=== PATIENT | male | born 1965 | race Caucasian/White ===

== ENCOUNTER 2024-12-05 08:41 | Outpatient (AMB) | payer MEDICAID, SELFPAY ==
--- NOTE | 2024-12-05 08:46 | A.OFFVIS_ITS ---
Vital Signs 12/05/24 08:47 Height 5 ft 6 in BP 138/77 Blood Pressure Location Rt brachial Position Sitting Pulse 67 Intake Visit Reasons: colo screening Intake Note: New patient in office today for colonoscopy screening. CC: He reports that he had a colonoscopy done a few years ago in [place] but does not recall exactly when. Pt reports occasional constipation and heartburn. 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 He is referred by Saadia benitez Orrum. 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 Chronic hepatitis-C Diabetes High cholesterol History of polysubstance use disorder Chronic pressure ulcer of the sacrum Chronic kidney disease stage IIIA Bipolar disorder/depression/panic disorder/PTSD Right carotid stenosis hepatic steatosis Osteoarthritis of the knee BPH Fall risk Frequent UTIs * SURGICAL HISTORY cOLONOSCOPY - in [facility] Back surgery * ALLERGIES Penicillin * [facility]: Laboratory Tests 08/06/24 10:30 WBC 15.4 H Hgb 12.6 L Hct 37.2 L MCV 88.4 MCH 29.9 Plt Count 310 Estimated GFR 55 Total Bilirubin 0.3 AST 24 ALT 18 Alkaline Phosphatase 81 Ammonia 63 H TODAY'S VISIT The The patient is here today with a staff member who is noncontributory The patient thinks he had an colonoscopy many years ago [place] from [place] and had polyps. Given his cognitive abilities are limited due to his stroke he can not give me any further details. He suffers GERD and constipation but the regimen he is on his his care facility control it sufficiently. There are no prior problems with anesthesia or sedation. He denies any cardiac or respiratory problems but has a history of DVT/PE and is on chronic anticoagulation. He has history of hepatitis-C with an unknown viral load so I have ordered labs. This would be to assess his infectious disease risk. The family history of colorectal cancer is unknown. [facility] Surgical History History of back surgery H/O colonoscopy History of esophagogastroduodenoscopy (EGD) Social History Alcohol intake: former Comment: Quit around 30-40 years ago per patient. Use of substances other than those prescribed or required for medical reasons: No Substance Use Type Other:: Hx of cocaine, marijuana, and heroine use Review of Systems Const Denies fatigue, Denies fever(s), Denies night sweats, Denies poor appetite, Reports weight gain and Denies weight loss ENT Reports Normal hearing present, Denies dental pain, Denies dysphagia, Denies hearing loss, Denies mouth pain, Denies odynophagia, Denies throat swelling, Denies tongue swelling and Reports other (Dentition adequate) Card Reports no additional complaints Resp Reports no additional complaints GI Details: Denies abdominal pain, Denies melena, Denies bloating, Denies hematochezia, Reports constipation, Denies GI cramping, Denies dysphagia, Denies excessive flatus, Denies early satiety, Reports heartburn, Denies diarrhea, Denies nausea, Denies odynophagia, Denies vomiting and Denies hematemesis Musc Reports abnormal gait, Reports myalgias and Reports deformity Skin/Breast Denies pruritus, Denies lesions, Denies rash and Denies jaundice Neuro Reports Normal hearing present, Denies Abnormal speech present, Reports abnormal gait, Reports lack of coordination, Reports focal weakness and Reports paresthesias Endo Denies fatigue Aller/Immun Denies throat swelling and Denies tongue swelling Physical Exam Vital Signs: Last Vital Signs Pulse 67 12/05/24 08:47 BP 138/77 12/05/24 08:47 Const General: cooperative, no acute distress, well developed and well groomed Nutritional Appearance: well nourished and obese Orientation/consciousness: oriented to person, oriented to place and oriented to time Limitations: behavioral limitations, No language barrier, wheelchair and other limitations HEENT Head: Yes normocephalic and Yes atraumatic Eyes General: appearance normal, both eyes and all related structures Pupils: Equal, round and reactive pupils present Neck Neck: Yes normal visual inspection and Yes no lymphadenopathy Thyroid: Thyroid normal Resp Effort & Inspection: normal respiratory effort and able to speak in complete sentences Auscultation: clear to auscultation bilaterally Cardio Rate: regular rate Rhythm: regular rhythm Heart sounds: Normal, physiologic split S2 sound present Peripheral pulses: radial pulses present and posterior tibial pulses present GI Inspection: No distended, No Abdominal panniculus present and Yes obesity Palpation (GI): Soft to palpation, nontender, no guarding, not rigid and No hepatosplenomegaly present Percussion: Yes normal to percussion Auscultation: normal bowel sounds Rectal Exam - Male: Yes deferred Skin General skin exam: no rashes or lesions noted, turgor normal, skin not dry, no jaundice, No spider nevi and no striae Rashes: no rashes Nails: normal Neuro General: oriented to person, oriented to place and oriented to time Cranial nerves: Yes Equal, round and reactive pupils present and Yes Normal hearing present Speech: No Abnormal speech present Extrem General: No capillary refill normal, No clubbing, No cyanosis, Yes edema and Yes Dysmorphic Psych Appearance: grossly normal and well kempt Mental Status: mental status grossly normal Speech and movement: Slowed speech present (Psych) Affect: normal affect Attitude: cooperative Thought process: Circumstantial thought process present and not confabulating Thought content: Normal thought content present Insight: Fair insight present (Psych) and Limited insight present (Psych) Judgement: Fair judgement present (Psych) and Limited judgement present (Psych) Assessment & Plan Assessment & Plan (1) Pre-op examination: Code(s): Z01.818 - Encounter for other preprocedural examination Category: Medical (2) Smoker: Code(s): F17.200 - Nicotine dependence, unspecified, uncomplicated Category: Social Hx (3) Left hemiplegia: Code(s): G81.94 - Hemiplegia, unspecified affecting left nondominant side Category: Medical (4) Chronic non-pressure ulcer of sacrum extending to fat level: Code(s): L98.422 - Non-pressure chronic ulcer of back with fat layer exposed Category: Medical (5) Hepatitis C antibody positive: Code(s): R76.8 - Other specified abnormal immunological findings in serum Category: Medical (6) Chronic deep vein thrombosis: Code(s): I82.509 - Chronic embolism and thrombosis of unspecified deep veins of unspecified lower extremity Category: Medical (7) Chronic anticoagulation: Code(s): Z79.01 - tank terminal gauger (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 Given his cognitive abilities are limited due to his stroke he can not give me any further details. He suffers GERD and constipation but the regimen he is on his his care facility control it sufficiently. There are no prior problems with anesthesia or sedation. He denies any cardiac or respiratory problems but has a history of DVT/PE and is on chronic anticoagulation. He has history of hepatitis-C with an unknown viral load so I have ordered labs. This would be to assess his infectious disease risk. The family history of colorectal cancer is unknown. Orders: Orders Hepatitis C Viral Load Today D72.829 - Elevated white blood cell count, unspecified, R76.8 - Other specified abnormal immunological findings in serum Colonoscopy - GI Use Only Today D72.829 - Elevated white blood cell count, unspecified, R76.8 - Other specified abnormal immunological findings in serum, Z01.818 - Encounter for other preprocedural examination Complete Blood Count Auto Diff Today D72.829 - Elevated white blood cell count, unspecified, R76.8 - Other specified abnormal immunological findings in serum Medications: New peg 3350-electrolytes 236-22.74-6.74 -5.86 gram (Golytely) until fecal effluent is clear; do not exceed a total volume of 2,000 mL 240 mL PO Q10M 4,000 mL 0RF 1 day Z12.11 - Encounter for screening for malignant neoplasm of colon bisacodyl (Dulcolax (bisacodyl)) 10 mg (2 x 5 mg) PO BEDTIME 4 tabs 0RF 2 days Coding Level of Care Code New Pt Level 3 (14426) Diagnoses Pre-op examination Z01.818 Smoker F17.200 Left hemiplegia G81.94 Chronic non-pressure ulcer of sacrum extending to fat level L98.422 Hepatitis C antibody positive R76.8 Chronic deep vein thrombosis I82.509 Chronic anticoagulation Z79.01 Opioid dependence on agonist therapy F11.20
[2024-12-05 08:47] VITALS: BP 138/77; PULSE 67
--- OUTSIDE RECORDS SUMMARY | 2024-12-05 08:57 | XMS_ITS | Clinical Summary ---
Author Organization [facility] Address [address] [place] [address] Phone Care Team Providers Care Flexo Folder Gluer Operator Name Role Phone Aleksander Welch MD Primary Care Provider [phone] Encounters Date Type Department Care Team Description 10/20/2024 Lab Requisition [facility] [address] [place] [address] Aleksander Welch MD Type 1 diabetes mellitus with diabetic polyneuropathy ([facility]/HCC V24, CMS/HCC V28) 09/24/2024 Lab Requisition [facility] [address] [place] [address] Aleksander Welch MD Chronic kidney disease, stage 3a (CMS/HCC V24, CMS/HCC V28); Other hyperlipidemia; Anemia, unspecified; Benign prostatic hyperplasia with lower urinary tract symptoms; Encounter for other specified special examinations 09/12/2024 Lab Requisition [facility] [address] [place] [id number] Alma Coon MD Chronic viral hepatitis C ([facility]/HCC V24, CMS/HCC V28) 09/12/2024 Lab Requisition [facility] [address] [place] [phone] Aleksander Welch MD Chronic viral hepatitis C (CMS/HCC V24, CMS/HCC V28) from Last 3 Months Social History Tobacco Use Types Packs/Day Years Used Date Smoking Tobacco: Never Assessed Sex and Gender Information Value Date Recorded Sex Assigned at Not on file Legal Sex Male 9:40 AM EST Gender Identity Not on file Sexual Orientation Not on file Plan of Treatment Health Maintenance Due Date Last Done Comments Diabetes: Annual Foot Exam 09/04/1977 Diabetes: Annual Retina Eye Exam 09/04/1977 DTaP,Tdap,and Td Vaccines (1 - Tdap) 09/04/1986 Hepatitis A Vaccines (1 of 2 - Risk 2-dose series) 09/04/1986 Hepatitis B Vaccines (1 of 3 - 19+ 3-dose series) 09/04/1986 Pneumococcal Vaccine: 50+ Years (1 of 2 - PCV) 09/04/1986 Zoster Vaccines (1 of 2) 09/04/2017 COVID-19 Vaccine (1 - season) 2023 Colorectal Cancer Screening: Colonoscopy 02/27/2024 Social Influencers of Health Screening 02/27/2024 Depression Screening 04/23/2024 Diabetes: Annual Urine Albumin-Creatinine Ratio (uACR) 07/11/2024 Influenza Vaccine (#1) 2024 Diabetes: Blood Sugar Control Test (HGBA1C) 04/21/2025 10/20/2024, 07/11/2024, 06/25/2024, Additional history exists Diabetes: Annual GFR (Glomerular Filtration Rate) 11/04/2025 11/04/2024, 09/24/2024, 09/12/2024, Additional history exists Hypertension/CHF/CAD Annual BMP Blood Test 11/04/2025 11/04/2024, 09/24/2024, 09/12/2024, Additional history exists Cholesterol Screening (Lipid Panel) 09/24/2029 09/24/2024, 03/26/2024, 02/27/2024 HIV Screening Completed 09/12/2024, 09/12/2024 Hepatitis C Screening Completed 11/04/2024, 025 HIB Vaccines Aged Out No longer eligi ble based on patient's age to complete this topic HPV Vaccines Aged Out No longer eligi ble based on patient's age to complete this topic IPV Vaccines Aged Out No longer eligi ble based on patient's age to complete this topic MMR Vaccines Aged Out No longer eligi ble based on patient's age to complete this topic Meningococcal ACWY Vaccine Aged Out N o longer eligible based on patient's age to complete this topic Meningococcal B Vaccine Aged Out No l onger eligible based on patient's age to complete this topic RSV Immunization Patients Under 20 months Aged Out No longer eligible based on patient's age to complete this topic Varicella Vaccines Aged Out No longer eligible based on patient's age to complete this topic Procedures Procedure Name Priority Date/Time Associated Diagnosis Comments VT PROTEIN ELECTROPHORETIC FRACTIONATION & QUANTITATION SERUM Routine 11/04/2024 8:53 AM EDT Chronic kidney disease (CKD) stage G3a/A1, moderately decreased glomerular filtration rate (GFR) between 45-59 mL/min/1.73 square meter and albuminuria creatinine ratio les* (CMS/HCC V24, CMS/HCC V28) Renal osteodystrophy AST, ALT, BILIRUBIN ELR STATE REPORTABLES Routine 11/04/2024 8:53 AM EDT Chronic kidney disease (CKD) stage G3a/A1, moderately decreased glomerular filtration rate (GFR) between 45-59 mL/min/1.73 square meter and albuminuria creatinine ratio les* (CMS/HCC V24, CMS/HCC V28) Renal osteodystrophy PROTEIN, TOTAL Routine 11/04/2024 8:53 AM EDT Chronic kidney disease (CKD) stage G3a/A1, moderately decreased glomerular filtration rate (GFR) between 45-59 mL/min/1.73 square meter and albuminuria creatinine ratio les* (CMS/HCC V24, CMS/HCC V28) Renal osteodystrophy C4 COMPLEMENT Routine 11/04/2024 8:53 AM EDT Chronic kidney disease (CKD) stage G3a/A1, moderately decreased glomerular filtration rate (GFR) between 45-59 mL/min/1.73 square meter and albuminuria creatinine ratio les* (CMS/HCC V24, CMS/HCC V28) Renal osteodystrophy C3 COMPLEMENT Routine 11/04/2024 8:53 AM EDT Chronic kidney disease (CKD) stage G3a/A1, moderately decreased glomerular filtration rate (GFR) between 45-59 mL/min/1.73 square meter and albuminuria creatinine ratio les* (CMS/HCC V24, CMS/HCC V28) Renal osteodystrophy RACHELL IFA WITH TITER AND PATTERN Routine 11/04/2024 8:53 AM EDT Chronic kidney disease (CKD) stage G3a/A1, moderately decreased glomerular filtration rate (GFR) between 45-59 mL/min/1.73 square meter and albuminuria creatinine ratio les* (CMS/HCC V24, CMS/HCC V28) Renal osteodystrophy HEPATITIS B CORE ANTIBODY IGM Routine 11/04/2024 8:53 AM EDT Chronic kidney disease (CKD) stage G3a/A1, moderately decreased glomerular filtration rate (GFR) between 45-59 mL/min/1.73 square meter and albuminuria creatinine ratio les* (CMS/HCC V24, CMS/HCC V28) Renal osteodystrophy HEPATITIS C ANTIBODY Routine 11/04/2024 8:53 AM EDT Chronic kidney disease (CKD) stage G3a/A1, moderately decreased glomerular filtration rate (GFR) between 45-59 mL/min/1.73 square meter and albuminuria creatinine ratio les* (CMS/HCC V24, CMS/HCC V28) Renal osteodystrophy HEPATITIS B SURFACE ANTIGEN WITH CONFIRMATION Routine 11/04/2024 8:53 AM EDT Chronic kidney disease (CKD) stage G3a/A1, moderately decreased glomerular filtration rate (GFR) between 45-59 mL/min/1.73 square meter and albuminuria creatinine ratio les* (CMS/HCC V24, CMS/HCC V28) Renal osteodystrophy HEPATITIS B SURFACE ANTIBODY QUANTITATIVE Routine 11/04/2024 8:53 AM EDT Chronic kidney disease (CKD) stage G3a/A1, moderately decreased glomerular filtration rate (GFR) between 45-59 mL/min/1.73 square meter and albuminuria creatinine ratio les* (CMS/HCC V24, CMS/HCC V28) Renal osteodystrophy KAPPA-LAMBDA QUANTITATIVE FREE LIGHT CHAINS Routine 11/04/2024 8:53 AM EDT Chronic kidney disease (CKD) stage G3a/A1, moderately decreased glomerular filtration rate (GFR) between 45-59 mL/min/1.73 square meter and albuminuria creatinine ratio les* (CMS/HCC V24, CMS/HCC V28) Renal osteodystrophy PROTEIN ELECTROPHORESIS, SERUM Routine 11/04/2024 8:53 AM EDT Chronic kidney disease (CKD) stage G3a/A1, moderately decreased glomerular filtration rate (GFR) between 45-59 mL/min/1.73 square meter and albuminuria creatinine ratio les* (CMS/HCC V24, CMS/HCC V28) Renal osteodystrophy MAGNESIUM Routine 11/04/2024 8:53 AM EDT Chronic kidney disease (CKD) stage G3a/A1, moderately decreased glomerular filtration rate (GFR) between 45-59 mL/min/1.73 square meter and albuminuria creatinine ratio les* (CMS/HCC V24, CMS/HCC V28) Renal osteodystrophy COMPLETE BLOOD COUNT Routine 11/04/2024 8:53 AM EDT Chronic kidney disease (CKD) stage G3a/A1, moderately decreased glomerular filtration rate (GFR) between 45-59 mL/min/1.73 square meter and albuminuria creatinine ratio les* (CMS/HCC V24, CMS/HCC V28) Renal osteodystrophy VITAMIN D 25 HYDROXY Routine 11/04/2024 8:53 AM EDT Chronic kidney disease (CKD) stage G3a/A1, moderately decreased glomerular filtration rate (GFR) between 45-59 mL/min/1.73 square meter and albuminuria creatinine ratio les* (CMS/HCC V24, CMS/HCC V28) Renal osteodystrophy RENAL FUNCTION PANEL Routine 11/04/2024 8:53 AM EDT Chronic kidney disease (CKD) stage G3a/A1, moderately decreased glomerular filtration rate (GFR) between 45-59 mL/min/1.73 square meter and albuminuria creatinine ratio les* (CMS/HCC V24, CMS/HCC V28) Renal osteodystrophy PARATHYROID HORMONE INTACT Routine 11/04/2024 8:53 AM EDT Chronic kidney disease (CKD) stage G3a/A1, moderately decreased glomerular filtration rate (GFR) between 45-59 mL/min/1.73 square meter and albuminuria creatinine ratio les* (CMS/HCC V24, CMS/HCC V28) Renal osteodystrophy HEMOGLOBIN A1C Routine 10/20/2024 6:50 AM EDT Type 1 diabetes mellitus with diabetic polyneuropathy (CMS/HCC V24, CMS/HCC V28) CBC WITH AUTO DIFFERENTIAL Routine 09/24/2024 7:05 AM EDT Chronic kidney disease, stage 3a (CMS/HCC V24, CMS/HCC V28) Other hyperlipidemia Anemia, unspecified Benign prostatic hyperplasia with lower urinary tract symptoms Encounter for other specified special examinations THYROID STIMULATING HORMONE Routine 09/24/2024 7:05 AM EDT Chronic kidney disease, stage 3a (CMS/HCC V24, CMS/HCC V28) Other hyperlipidemia Anemia, unspecified Benign prostatic hyperplasia with lower urinary tract symptoms Encounter for other specified special examinations PROSTATE SPECIFIC ANTIGEN DIAGNOSTIC Routine 09/24/2024 7:05 AM EDT Chronic kidney disease, stage 3a (CMS/HCC V24, CMS/HCC V28) Other hyperlipidemia Anemia, unspecified Benign prostatic hyperplasia with lower urinary tract symptoms Encounter for other specified special examinations CBC AND DIFFERENTIAL Routine 09/24/2024 7:05 AM EDT Chronic kidney disease, stage 3a (CMS/HCC V24, CMS/HCC V28) Other hyperlipidemia Anemia, unspecified Benign prostatic hyperplasia with lower urinary tract symptoms Encounter for other specified special examinations LIPID PANEL WITH REFLEX TO DIRECT LDL Routine 09/24/2024 7:05 AM EDT Chronic kidney disease, stage 3a (CMS/HCC V24, CMS/HCC V28) Other hyperlipidemia Anemia, unspecified Benign prostatic hyperplasia with lower urinary tract symptoms Encounter for other specified special examinations COMPREHENSIVE METABOLIC PANEL Routine 09/24/2024 7:05 AM EDT Chronic kidney disease, stage 3a (CMS/HCC V24, CMS/HCC V28) Other hyperlipidemia Anemia, unspecified Benign prostatic hyperplasia with lower urinary tract symptoms Encounter for other specified special examinations PROTHROMBIN TIME WITH INR Routine 09/12/2024 6:59 AM EDT Chronic viral hepatitis C (CMS/HCC V24, CMS/HCC V28) TREPONEMA PALLIDUM ANTIBODY WITH REFLEX TO RPR AND PARTICLE AGGLUTINATION Routine 09/12/2024 6:59 AM EDT Chronic viral hepatitis C (CMS/HCC V24, CMS/HCC V28) HEPATITIS B SURFACE ANTIGEN WITH CONFIRMATION Routine 09/12/2024 6:59 AM EDT Chronic viral hepatitis C (CMS/HCC V24, CMS/HCC V28) HIV 1, 2 ANTIBODY, P24 ANTIGEN WITH REFLEX TO DIFFERENTIATION Routine 09/12/2024 6:59 AM EDT Chronic viral hepatitis C (CMS/HCC V24, CMS/HCC V28) HEPATITIS B SURFACE ANTIBODY Routine 09/12/2024 6:59 AM EDT Chronic viral hepatitis C (CMS/HCC V24, CMS/HCC V28) BILIRUBIN, TOTAL AND DIRECT Routine 09/12/2024 6:59 AM EDT Chronic viral hepatitis C (CMS/HCC V24, CMS/HCC V28) ALBUMIN Routine 09/12/2024 6:59 AM EDT Chronic viral hepatitis C (CMS/HCC V24, CMS/HCC V28) CREATININE, SERUM Routine 09/12/2024 6:5 9 AM EDT Chronic viral hepatitis C (CMS/HCC V24, CMS/HCC V28) ASPARTATE AMINOTRANSFERASE Routine 09/12/2024 6:59 AM EDT Chronic viral hepatitis C (CMS/HCC V24, CMS/HCC V28) ALANINE AMINOTRANSFERASE Routine 09/12/2024 6:59 AM EDT Chronic viral hepatitis C (CMS/HCC V24, CMS/HCC V28) CBC WITH AUTO DIFFERENTIAL Routine 09/12/2024 6:59 AM EDT Chronic viral hepatitis C (CMS/HCC V24, CMS/HCC V28) CBC AND DIFFERENTIAL Routine 09/12/2024 6:59 AM EDT Chronic viral hepatitis C (CMS/HCC V24, CMS/HCC V28) HEPATITIS A ANTIBODY IGM Routine 09/12/2024 6:59 AM EDT Chronic viral hepatitis C (CMS/HCC V24, CMS/HCC V28) WHITE - K2EDTA Routine 09/12/2024 6:59 AM EDT Chronic viral hepatitis C (CMS/HCC V24, CMS/HCC V28) LAVENDER - EDTA Routine 09/12/2024 6:59 AM EDT Chronic viral hepatitis C (CMS/HCC V24, CMS/HCC V28) SST - GOLD Routine 09/12/2024 6:59 AM EDT Chronic viral hepatitis C (CMS/HCC V24, CMS/HCC V28) HEPATITIS A ANTIBODY TOTAL WITH REFLEX IGM Routine 09/12/2024 6:59 AM EDT Chronic viral hepatitis C (CMS/HCC V24, CMS/HCC V28) SST - GOLD Routine 09/12/2024 6:59 AM EDT Chronic viral hepatitis C (CMS/HCC V24, CMS/HCC V28) SST - GOLD Routine 09/12/2024 6:59 AM EDT Chronic viral hepatitis C (CMS/HCC V24, CMS/HCC V28) CBC WITH AUTO DIFFERENTIAL Routine 09/12/2024 6:59 AM EDT Chronic viral hepatitis C (CMS/HCC V24, CMS/HCC V28) HIV 1, 2 ANTIBODY, P24 ANTIGEN WITH REFLEX TO DIFFERENTIATION Routine 09/12/2024 6:59 AM EDT Chronic viral hepatitis C (CMS/HCC V24, CMS/HCC V28) HEPATITIS C VIRUS QUANTITATIVE PCR Routine 09/12/2024 6:59 AM EDT Chronic viral hepatitis C (CMS/HCC V24, CMS/HCC V28) TREPONEMA PALLIDUM ANTIBODY WITH REFLEX TO RPR AND PARTICLE AGGLUTINATION Routine 09/12/2024 6:59 AM EDT Chronic viral hepatitis C (CMS/HCC V24, CMS/HCC V28) CREATININE, SERUM Routine 09/12/2024 6:5 9 AM EDT Chronic viral hepatitis C (CMS/HCC V24, CMS/HCC V28) ALANINE AMINOTRANSFERASE Routine 09/12/2024 6:59 AM EDT Chronic viral hepatitis C (CMS/HCC V24, CMS/HCC V28) ASPARTATE AMINOTRANSFERASE Routine 09/12/2024 6:59 AM EDT Chronic viral hepatitis C (CMS/HCC V24, CMS/HCC V28) PROTHROMBIN TIME WITH INR Routine 09/12/2024 6:59 AM EDT Chronic viral hepatitis C (CMS/HCC V24, CMS/HCC V28) HEPATITIS B SURFACE ANTIGEN WITH CONFIRMATION Routine 09/12/2024 6:59 AM EDT Chronic viral hepatitis C (CMS/HCC V24, CMS/HCC V28) HEPATITIS B SURFACE ANTIBODY Routine 09/12/2024 6:59 AM EDT Chronic viral hepatitis C (CMS/HCC V24, CMS/HCC V28) CBC AND DIFFERENTIAL Routine 09/12/2024 6:59 AM EDT Chronic viral hepatitis C (CMS/HCC V24, CMS/HCC V28) BILIRUBIN, TOTAL AND DIRECT Routine 09/12/2024 6:59 AM EDT Chronic viral hepatitis C (CMS/HCC V24, CMS/HCC V28) ALBUMIN Routine 09/12/2024 6:59 AM EDT Chronic viral hepatitis C (CMS/HCC V24, CMS/HCC V28) from Last 3 Months Results * (ABNORMAL) Hepatitis C antibody (11/04/2024 8:53 AM EDT) Pathologist [facility] Hepatitis C Antibody Positive (A) Negative LAB CHEMISTRY METHOD 11/04/2024 2:12 PM EDT [facility] Comment:If confirmation of t his positive HCV Ab screening test is needed, please redraw and order HCV Viral Load. Note--> This test may not be added on due to different specimen requirements. Blood Venous blood specimen / Unknown Venipuncture / Unknown 11/04/2024 8:53 AM EDT 11/04/2024 10:45 AM EDT Chinmay Saenz MD LAB BLOOD ORDERABLES Final Re sult Performing Organization Address [facility] Co de Phone Number [facility] [address] [place] [address], [place] [phone] * Hepatitis B surface antigen with reflex to confirmation (11/04/2024 8:53 AM EDT) Only the most recent of3 resultswithin the time period is included. [facility] Hepatitis B Surface Ag Negative Negative LAB CHEMISTRY METHOD 11/04/2024 1:45 PM EDT [facility] Blood Venous blood specimen / Unknown Venipuncture / Unknown 11/04/2024 8:53 AM EDT 11/04/2024 10:45 AM EDT Narrative [facility] - 11/04/2024 1:45 PM EDT Over the counter supplements containing high doses of biotin may interfere with this assay. If interference is suspected, patients shoud be retested after refraining from biotin supplements for 72 hours. Chinmay Saenz MD LAB BLOOD ORDERABLES Final Re sult Performing Organization Address [facility]/ZIP Co de Phone Number [facility] [address] [place] [address], [place] [phone] * PATHOLOGIST REVIEW PROTEIN ELECTROPHORESIS (11/04/2024 8:53 AM EDT) [facility] Pathologist Interpretation 11/06/2024 2:35 PM EDT [facility] Blood Venous blood specimen / Unknown Venipuncture / Unknown 11/04/2024 8:53 AM EDT 11/04/2024 10:45 AM EDT Chinmay Saenz MD LAB BLOOD ORDERABLES Final Re sult Performing Organization Address City/[facility]/ZIP Co de Phone Number [facility] [address] [place] [address], [place] [phone] * AST, ALT, Bilirubin ELR state reportables (11/04/2024 8:53 AM EDT) Pathologist [facility] Platelets 328 K/mcL LAB HEMETOLOGY METHOD 11/04/2024 2:33 PM EDT [facility] Blood Venous blood specimen / Unknown Venipuncture / Unknown 11/04/2024 8:53 AM EDT 11/04/2024 10:45 AM EDT us Chinmay Saenz MD LAB BLOOD ORDERABLES Final Re sult Performing Organization Address [facility]/ZIP Co de Phone Number [facility] [address] [place] [address], [place] [phone] * (ABNORMAL) [place]-lambda free light chains, quantitative (11/04/2024 8:53 AM EDT) [place] Free Light Chain 2.81(H) 0.33 - 1.94 mg/dL 11/06/2024 12:42 PM EDT [facility] Lambda Free Light Chain 1.82 0.57 - 2.63 mg/dL 11/06/2024 12:42 PM EDT [facility] [place]/Lambda FLC Ratio 1.54 0.26 - 1.65 11/06/2024 12:42 PM EDT [facility] Comment: Test performed at [facility], [address], [place] [address] Nancy Frazier MD, PhD - Senior Software Development Engineer Blood Venous blood specimen / Unknown Venipuncture / Unknown 11/04/2024 8:53 AM EDT 11/04/2024 10:45 AM EDT Chinmay Saenz MD LAB BLOOD ORDERABLES Final Re sult KASSIE SANCHEZ [address] [place] [address] * RACHELL IFA with titer and pattern (11/04/2024 8:53 AM EDT) RACHELL Negative Negative 11/05/2024 1:33 PM EDT [facility] Blood Venous blood specimen / Unknown Venipuncture / Unknown 11/04/2024 8:53 AM EDT 11/04/2024 10:45 AM EDT Chinmay Saenz MD LAB BLOOD ORDERABLES Final Re sult Performing Organization Address [facility] Co de Phone Number [facility] [address] [place] [address], [place] [phone] * Hepatitis B core antibody IgM (11/04/2024 8:53 AM EDT) Hep B Core IgM Negative Negative LAB CHEMISTRY METHOD 11/04/2024 2:13 PM EDT [facility] Blood Venous blood specimen / Unknown Venipuncture / Unknown 11/04/2024 8:53 AM EDT 11/04/2024 10:45 AM EDT Narrative [facility] - 11/04/2024 2:13 PM EDT Over the counter supplements containing high doses of biotin may interfere with this assay. If interference is suspected, patients shoud be retested after refraining from biotin supplements for 72 hours. us Chinmay Saenz MD LAB BLOOD ORDERABLES Final Re sult Performing Organization Address City/[facility]/ZIP Co de Phone Number [facility] [address] [place] [address], [place] [phone] * (ABNORMAL) Hepatitis B surface antibody quantitative (11/04/2024 8:53 AM EDT) Pathologist [facility] Hepatitis B Surface Ab Positive (A) Negative LAB CHEMISTRY METHOD 11/04/2024 1:35 PM EDT [facility] Hepatitis B Surface Ab Quantitative >1,000.0 mIU/mL LAB CHEMISTRY METHOD 11/04/2024 1:35 PM EDT [facility] Blood Venous blood specimen / Unknown Venipuncture / Unknown 11/04/2024 8:53 AM EDT 11/04/2024 10:45 AM EDT Narrative [facility] - 11/04/2024 1:35 PM EDT >=10 mIU/mL is considered to be consistent with immunity. Chinmay Saenz MD LAB BLOOD ORDERABLES Final Re sult Performing Organization Address [facility]/ZIP Co de Phone Number [facility] [address] [place] [address], [place] [phone] * (ABNORMAL) Vitamin D 25 hydroxy (11/04/2024 8:53 AM EDT) Pathologist [facility] Vit D, 25-Hydroxy 22.3(L) 30.0 - 80.0 ng/mL LAB CHEMISTRY METHOD 11/04/2024 1:34 PM EDT [facility] Blood Venous blood specimen / Unknown Venipuncture / Unknown 11/04/2024 8:53 AM EDT 11/04/2024 10:45 AM EDT us Chinmay Saenz MD LAB BLOOD ORDERABLES Final Re sult Performing Organization Address City/[facility]/ZIP Co de Phone Number [facility] [address] [place] [address], [place] [phone] * (ABNORMAL) Complete blood count (11/04/2024 8:53 AM EDT) [facility] Signature WBC 8.9 4.8 - 10.8 K/mcL LAB HEMETOLOGY METHOD 11/04/2024 10:53 AM [facility] RBC 4.50 4.50 - 5.50 M/mcL LAB HEMETOLOGY METHOD 11/04/2024 10:53 AM EDT [facility] Hemoglobin 13.3(L) 13.5 - 17.5 g/dL LAB HEMETOLOGY METHOD 11/04/2024 10:53 AM [facility] Hematocrit 40.3(L) 42.0 - 54.0 % LAB HEMETOLOGY METHOD 11/04/2024 10:53 AM [facility] MCV 90.6 79.0 - 98.0 FL LAB HEMETOLOGY METHOD 11/04/2024 10:53 AM [facility] MCH 29.9 27.0 - 32.0 pcg LAB HEMETOLOGY METHOD 11/04/2024 10:53 AM [facility] MCHC 33.0 32.0 - 37.0 g/dL LAB HEMETOLOGY METHOD 11/04/2024 10:53 AM [facility] RDW 12.7 11.0 - 15.0 % LAB HEMETOLOGY METHOD 11/04/2024 10:53 AM [facility] Platelets 328 130 - 400 K/mcL LAB HEMETOLOGY METHOD 11/04/2024 10:53 AM [facility] MPV 10.4 7.0 - 11.0 FL LAB HEMETOLOGY METHOD 11/04/2024 10:53 AM [facility] NRBC 0.0 <1.0 % LAB HEMETOLOGY METHOD 11/04/2024 10:53 AM [facility] NRBC Absolute 0.00 <0.10 K/mcL LAB HEMETOLOGY METHOD 11/04/2024 10:53 AM EDT [facility] Blood Venous blood specimen / Unknown Venipuncture / Unknown 11/04/2024 8:53 AM EDT 11/04/2024 10:47 AM EDT us Chinmay Saenz MD LAB BLOOD ORDERABLES Final Re sult Performing Organization Address City/[facility]/ZIP Co de Phone Number [facility] [address] [place] [address], [place] [phone] * C3 complement (11/04/2024 8:53 AM EDT) C3 Complement 137 88 - 201 mg/dL LAB CHEMISTRY METHOD 11/04/2024 12:41 PM EDT [facility] Blood Venous blood specimen / Unknown Venipuncture / Unknown 11/04/2024 8:53 AM EDT 11/04/2024 10:45 AM EDT us Chinmay Saenz MD LAB BLOOD ORDERABLES Final Re sult Performing Organization Address [facility]/ZIP Co de Phone Number [facility] [address] [place] [address], [place] [phone] * C4 complement (11/04/2024 8:53 AM EDT) C4 Complement 34 16 - 47 mg/dL LAB CHEMISTRY METHOD 11/04/2024 12:41 PM EDT [facility] Blood Venous blood specimen / Unknown Venipuncture / Unknown 11/04/2024 8:53 AM EDT 11/04/2024 10:45 AM EDT us Chinmay Saenz MD LAB BLOOD ORDERABLES Final Re sult [facility] [address] [place] [address], [place] [phone] * Protein electrophoresis, serum (11/04/2024 8:53 AM EDT) Total Protein 7.0 6.0 - 8.0 g/dL LAB CHEMISTRY METHOD 11/06/2024 2:35 PM EDT [facility] Albumin, Serum 3.5 2.9 - 4.1 g/dL LAB CHEMISTRY METHOD 11/06/2024 2:35 PM EDT [facility] Alpha 1 Globulin (g/dL) 0.2 0.1 - 0.5 g/dL LAB CHEMISTRY METHOD 11/06/2024 2:35 PM EDT [facility] Alpha 2 Globulin (g/dL) 1.1 0.7 - 1.5 g/dL LAB CHEMISTRY METHOD 11/06/2024 2:35 PM EDT [facility] Beta (g/dL) 1.2 0.7 - 1.5 g/dL LAB CHEMISTRY METHOD 11/06/2024 2:35 PM EDT [facility] Gamma Globulin (g/dL) 1.0 0.7 - 1.9 g/dL LAB CHEMISTRY METHOD 11/06/2024 2:35 PM EDT [facility] SPEP Interpretation No M-Elan seen. Essentially normal pattern. LAB CHEMISTRY METHOD 11/06/2024 2:35 PM EDT [facility] Blood Venous blood specimen / Unknown Venipuncture / Unknown 11/04/2024 8:53 AM EDT 11/04/2024 10:45 AM EDT us Chinmay Saenz MD LAB BLOOD ORDERABLES Final Re sult [facility] [address] [place] [address], [place] [phone] * Protein, total (11/04/2024 8:53 AM EDT) Total Protein 7.0 6.0 - 8.0 g/dL LAB CHEMISTRY METHOD 11/04/2024 12:42 PM EDT [facility] Blood Venous blood specimen / Unknown Venipuncture / Unknown 11/04/2024 8:53 AM EDT 11/04/2024 10:45 AM EDT us Chinmay Saenz MD LAB BLOOD ORDERABLES Final Re sult Performing Organization Address [facility]/ZIP Co de Phone Number [facility] [address] [place] [address], [place] [phone] * Parathyroid hormone intact (11/04/2024 8:53 AM EDT) PTH 28.1 18.5 - 88.0 pcg/mL LAB CHEMISTRY METHOD 11/04/2024 1:34 PM EDT [facility] Blood Venous blood specimen / Unknown Venipuncture / Unknown 11/04/2024 8:53 AM EDT 11/04/2024 10:45 AM EDT us Chinmay Saenz MD LAB BLOOD ORDERABLES Final Re sult Performing Organization Address [facility] Co de Phone Number [facility] [address] [place] [address], [place] [phone] * Magnesium (11/04/2024 8:53 AM EDT) Magnesium 1.9 1.9 - 2.6 mg/dL LAB CHEMISTRY METHOD 11/04/2024 12:30 PM EDT [facility] Blood Venous blood specimen / Unknown Venipuncture / Unknown 11/04/2024 8:53 AM EDT 11/04/2024 10:45 AM EDT us Chinmay Saenz MD LAB BLOOD ORDERABLES Final Re sult [facility] [address] [place] [address], * (ABNORMAL) Renal function panel (11/04/2024 8:53 AM EDT) Sodium 143 133 - 145 mmol/L LAB CHEMISTRY METHOD 11/04/2024 2:57 PM EDT [facility] Potassium 3.5 3.5 - 5.5 mmol/L LAB CHEMISTRY METHOD 11/04/2024 2:57 PM EDT [facility] Chloride 110 96 - 110 mmol/L LAB CHE[facility]STR[facility]/04[facility] CO2 27 21 - 32 mmol/L LAB CHEMISTRY METHOD 11/04/2024 2:[facility] Anion Gap 6 3 - 11 LAB CHEMISTRY METHOD 11/04/2024 2:57 PM EDT [facility] Glucose 25(LL) 70 - 100 mg/dL LAB CHEMISTRY METHOD 11/04/2024 2:57 PM [facility] BUN 19 5 - 25 mg/dL LAB CHEMISTRY METHOD 11/04/2024 2:57 PM T [facility] Creatinine 1.05 0.70 - 1.30 mg/dL LAB CHEMISTRY METHOD 11/04/2024 2:57 PM EDT [facility] eGFR 83 >=60 mL/min/1. 73m2 LAB CHEMISTRY METHOD 11/04/2024 2:57 PM T [facility] Comment:Calculation based on the Chronic Kidney Disease Epidemiology Collaboration (CKD-EPI) equation refit without adjustment for race. BUN/Creatinine Ratio 18.1 LAB CHEMISTRY METHOD 11/04/2024 2:57 PM T [facility] Albumin 3.9 3.2 - 5.0 g/dL LAB CHEMISTRY METHOD 11/04/2024 2:57 PM EDT [facility] Calcium 9.1 8.5 - 10.5 mg/dL LAB CHEMISTRY METHOD 11/04/2024 2:57 PM EDT [facility] Phosphorus 3.6 2.5 - 4.5 mg/dL LAB CHEMISTRY METHOD 11/04/2024 2:57 PM EDT [facility] Blood Venous blood specimen / Unknown Venipuncture / Unknown 11/04/2024 8:53 AM EDT 11/04/2024 10:45 AM EDT Chinmay Saenz MD LAB BLOOD ORDERABLES Final Re sult Performing Organization Address City/[facility]/ZIP Co de Phone Number [facility] [address] [place] [address], [place] [phone] * (ABNORMAL) Hemoglobin A1c (10/20/2024 6:50 AM EDT) Hemoglobin A1C 8.6(H) <6.5 % LAB CHEMISTRY METHOD 10/20/2024 12:42 PM EDT [facility] Mean Bld Glu Estim. 200 mg/dL LAB CHEMISTRY METHOD 10/20/2024 12:42 PM EDT [facility] Blood Venous blood specimen / Unknown 10/20/2024 6:50 AM EDT 10/20/2024 7:17 AM EDT Aleksander Welch MD LAB BLOOD ORDERABLES Final Resul t [facility] [address] [place] [address], [place] [phone] * Lipid panel with reflex to direct LDL (09/24/2024 7:05 AM EDT) Cholesterol 167 0 - 200 mg/dL LAB CHEMISTRY METHOD 09/24/2024 9:26 AM EDT [facility] Triglycerides 111 0 - 150 mg/dL LAB CHEMISTRY METHOD 09/24/2024 9:26 AM EDT [facility] HDL 62 >=40 mg/dL LAB CHEMISTRY METHOD 09/24/2024 9:26 AM EDT [facility] LDL Calculated 83 0 - 100 mg/dL LAB CHEMISTRY METHOD 09/24/2024 9:26 AM EDT [facility] VLDL Cholesterol Tim 22.2 mg/dL LAB CHEMISTRY METHOD 09/24/2024 9:26 AM EDT [facility] Non HDL Chol. (LDL+VLDL) 105 <145 mg/dL LAB CHEMISTRY METHOD 09/24/2024 9:26 AM EDT [facility] Chol/HDL Ratio 2.7 0.0 - 4.4 LAB CHEMISTRY METHOD 09/24/2024 9:26 AM EDT [facility] Blood Venous blood specimen / Unknown 09/24/2024 7:05 AM EDT 09/24/2024 8:39 AM EDT us Aleksander Welch MD LAB BLOOD ORDERABLES Final Resul t [facility] [address] [place] [address], [place] [phone] * Prostate specific antigen diagnostic (09/24/2024 7:05 AM EDT) PSA 0.09 0.00 - 4.00 ng/mL LAB CHEMISTRY METHOD 09/24/2024 10:51 AM EDT [facility] Blood Venous blood specimen / Unknown 09/24/2024 7:05 AM EDT 09/24/2024 8:39 AM EDT Narrative [facility] - 09/24/2024 10:51 AM EDT The Siemens Advia Centaur Chemiluminescent Immunoassay is used. Results obtained with different assay methods or kits cannot be used interchangeably. Results cannot be interpreted as absolute evidence of the presence or absence of malignant disease. us Aleksander Welch MD LAB BLOOD ORDERABLES Final Resul t [facility] [address] [place] [address], * (ABNORMAL) CBC auto differential (09/24/2024 7:05 AM EDT) Only the most recent of3 resultswithin the time period is included. WBC 6.4 4.8 - 10.8 K/mcL LAB HEMETOLOGY METHOD 09/24/2024 9:08 AM EDT [facility] RBC 4.20(L) 4.50 - 5.50 M/mcL LAB HEMETOLOGY METHOD 09/24/2024 9:08 AM [facility] Hemoglobin 12.9(L) 13.5 - 17.5 g/dL LAB HEMETOLOGY METHOD 09/24/2024 9:08 AM [facility] Hematocrit 37.9(L) 42.0 - 54.0 % LAB HEMETOLOGY METHOD 09/24/2024 9:08 AM [facility] MCV 89.8 79.0 - 98.0 FL LAB HEMETOLOGY METHOD 09/24/2024 9:08 AM [facility] MCH 30.6 27.0 - 32.0 pcg LAB HEMETOLOGY METHOD 09/24/2024 9:08 AM EDT [facility] MCHC 34.0 32.0 - 37.0 g/dL LAB HEMETOLOGY METHOD 09/24/2024 9:08 AM [facility] RDW 12.6 11.0 - 15.0 % LAB HEMETOLOGY METHOD 09/24/2024 9:08 AM [facility] Platelets 254 130 - 400 K/mcL LAB HEMETOLOGY [facility] 09/24/2024 9[facility] MPV 11.0 7.0 - 11.0 FL LAB HEMETOLOGY METHOD 09/24/2024 9:08 AM [facility] NRBC 0.0 <1.0 % LAB HEMETOLOGY METHOD 09/24/2024 9:08 AM [facility] NRBC Absolute 0.00 <0.10 K/mcL LAB HEMETOLOGY METHOD 09/24/2024 9:08 AM [facility] Neutrophils Relative 57.7 % LAB HEMETOLOGY METHOD 09/24/2024 9:08 AM [facility] Lymphocytes Relative 26.7 % LAB HEMETOLOGY METHOD 09/24/2024 9:08 AM [facility] Monocytes Relative 7.2 % LAB HEMETOLOGY METHOD 09/24/2024 9:08 AM [facility] Eosinophils Relative 6.7 % LAB HEMETOLOGY METHOD 09/24/2024 9:08 AM [facility] Basophils Relative 1.2 % LAB HEMETOLOGY METHOD 09/24/2024 9:08 AM [facility] Immature Granulocytes Relative 0.5 % LAB HEMETOLOGY METHOD 09/24/2024 9:08 AM [facility] Neutrophils Absolute 3.70 1.50 - 7.00 K/mcL LAB HEMETOLOGY METHOD 09/24/2024 9:08 AM [facility] Lymphocytes Absolute 1.71 1.00 - 5.00 K/mcL LAB HEMETOLOGY METHOD 09/24/2024 9:08 AM [facility] Monocytes Absolute 0.46 0.20 - 1.00 K/mcL LAB HEMETOLOGY METHOD 09/24/2024 9:08 AM [facility] Eosinophils Absolute 0.43 0.00 - 0.50 K/mcL LAB HEMETOLOGY METHOD 09/24/2024 9:08 AM [facility] Basophils Absolute 0.08 0.00 - 0.20 K/[facility] LAB HEMETOLOGY METHOD 09/24/2024 9:08 AM EDT [facility] Immature Granulocytes Absolute 0.03 0.00 - 0.03 K/[facility] LAB HEMETOLOGY METHOD 09/24/2024 9:08 AM EDT [facility] Blood Venous blood specimen / Unknown 09/24/2024 7:05 AM EDT 09/24/2024 8:39 AM EDT us Aleksander Welch MD LAB BLOOD ORDERABLES Final Resul t Performing Organization Address City/[facility]/ZIP Co de Phone Number [facility] [address] [place] [address], [place] [phone] * Thyroid stimulating hormone (09/24/2024 7:05 AM EDT) TSH 1.32 0.40 - 4.00 mcIU/mL LAB CHEMISTRY METHOD 09/24/2024 11:14 AM EDT [facility] Blood Venous blood specimen / Unknown 09/24/2024 7:05 AM EDT 09/24/2024 8:39 AM EDT us Aleksander Welch MD LAB BLOOD ORDERABLES Final Resul t Performing Organization Address [facility]/ZIP Co de Phone Number [facility] [address] [place] [address], [place] [phone] * (ABNORMAL) Comprehensive metabolic panel (09/24/2024 7:05 AM EDT) Sodium 142 133 - 145 mmol/L LAB CHEMISTRY METHOD 09/24/2024 9:25 AM EDT [facility] Potassium 4.3 3.5 - 5.5 mmol/L LAB CHEMISTRY METHOD 09/24/2024 9:25 AM EDT [facility] Chloride 108 96 - 110 mmol/L LAB CHEMISTRY METHOD 09/24/2024 9:25 AM [facility] CO2 29 21 - 32 mmol/L LAB CHEMISTRY METHOD 09/24/2024 9:25 AM [facility] Anion Gap 5 3 - 11 LAB CHEMISTRY METHOD 09/24/2024 9:25 AM [facility] Glucose 176(H) 70 - 100 mg/dL LAB CHEMISTRY METHOD 09/24/2024 9:25 AM [facility] BUN 27(H) 5 - 25 mg/dL LAB CHEMISTRY METHOD 09/24/2024 9:25 AM [facility] Creatinine 1.25 0.70 - 1.30 mg/dL LAB CHEMISTRY METHOD 09/24/2024 9:25 AM [facility] eGFR 67 >=60 mL/min/1. 73m2 LAB CHEMISTRY METHOD 09/24/2024 9:25 AM [facility] Comment:Calculation based on the Chronic Kidney Disease Epidemiology Collaboration (CKD-EPI) equation refit without adjustment for race. BUN/Creatinine Ratio 21.6 LAB CHEMISTRY METHOD 09/24/2024 9:25 AM [facility] Calcium 9.1 8.5 - 10.5 mg/dL LAB CHEMISTRY METHOD 09/24/2024 9:25 AM [facility] AST (SGOT) 17 10 - 42 unit/L LAB CHEMISTRY METHOD 09/24/2024 9:25 AM [facility] ALT (SGPT) 20 10 - 60 unit/L LAB CHEMISTRY METHOD 09/24/2024 9:25 AM [facility] Alkaline Phosphatase 114 42 - 121 unit/L LAB CHEMISTRY METHOD 09/24/2024 9:25 AM [facility] Total Protein 6.5 6.0 - 8.0 g/dL LAB CHEMISTRY METHOD 09/24/2024 9:25 AM [facility] Albumin 3.4 3.2 - 5.0 g/dL LAB CHEMISTRY METHOD 09/24/2024 9:25 AM EDT [facility] Total Bilirubin 0.2 0.0 - 1.4 mg/dL LAB CHEMISTRY METHOD 09/24/2024 9:25 AM EDT [facility] Blood Venous blood specimen / Unknown 09/24/2024 7:05 AM EDT 09/24/2024 8:39 AM EDT Aleksander Welch MD LAB BLOOD ORDERABLES Final Resul t Performing Organization Address [facility] Co de Phone Number [facility] [address] [place] [address], [place] [phone] * HIV 1,2 antibody, p24 antigen with reflex to differentiation (09/12/2024 6:59 AM EDT) Only the most recent of2 resultswithin the time period is included. HIV Combo AB/AG Negative Negative LAB CHEMISTRY METHOD 09/12/2024 10:41 PM EDT [facility] Blood Venous blood specimen / Unknown 09/12/2024 6:59 AM EDT 09/12/2024 9:01 AM EDT Narrative [facility] - 09/12/2024 10:41 PM EDT This assay is a 4th generation assay allowing for earlier detection of HIV infection by detecting the presence of the HIV-1 p24 antigen as well as the traditional antibodies to HIV type 1 (including group O) and type 2. Use of a 4th generation assay is the current CDC recommendation for HIV screening. Alma Coon MD LAB BLOOD ORDERABLES Kena l Result Performing Organization Address City/[facility]/ZIP Co de Phone Number [facility] [address] [place] [address], [place] [phone] * Treponema pallidum antibody with reflex to RPR and particle agglutination (09/12/2024 6:59 AM EDT) Only the most recent of2 resultswithin the time period is included. T. Pallidum Antibodies Negative Negative LAB CHEMISTRY METHOD 09/12/2024 10:38 PM EDT [facility] Blood Venous blood specimen / Unknown 09/12/2024 6:59 AM EDT 09/12/2024 9:01 AM EDT Alma Coon MD LAB BLOOD ORDERABLES Kena l Result Performing Organization Address City/[facility]/ZIP Co de Phone Number [facility] [address] [place] [address], [place] [phone] * White - K2EDTA (09/12/2024 6:59 AM EDT) Extra Tube Hold for add-ons. 09/12/2024 11:01 AM EDT [facility] Comment:Auto resulted. Blood Venous blood specimen / Unknown 09/12/2024 6:59 AM EDT 09/12/2024 9:01 AM EDT Alma Coon MD LAB BLOOD ORDERABLES Kena l Result Performing Organization Address [facility] Co de Phone Number [facility] [address] [place] [address], [place] [phone] * SST tube (09/12/2024 6:59 AM EDT) Only the most recent of3 resultswithin the time period is included. Extra Tube Hold for add-ons. 09/12/2024 11:01 AM EDT [facility] Comment:Auto resulted. Blood Venous blood specimen / Unknown 09/12/2024 6:59 AM EDT 09/12/2024 9:01 AM EDT Alma Coon MD LAB BLOOD ORDERABLES Kena l Result [facility] [address] [place] [address], [place] [phone] * (ABNORMAL) Hepatitis A antibody total with reflex IgM (09/12/2024 6:59 AM EDT) [facility] Hep A Total Ab Positive( A) Negative LAB CHEMISTRY METHOD 09/12/2024 12:04 PM EDT [facility] Blood Venous blood specimen / Unknown 09/12/2024 6:59 AM EDT 09/12/2024 9:01 AM EDT Narrative [facility] - 09/12/2024 12:04 PM EDT Over the counter supplements containing high doses of biotin may interfere with this assay. If interference is suspected, patients shoud be retested after refraining from biotin supplements for 72 hours. Alma Coon MD LAB BLOOD ORDERABLES Kena lim Result Performing Organization Address City/[facility]/ZIP Co de Phone Number [facility] [address] [place] [address], [place] [phone] * Hepatitis C virus quantitative molecular study (09/12/2024 6:59 AM EDT) [facility] HCV Qual Interp Not Detected Not Detected LAB MOLECULAR DIAGNOSTICS METHOD 09/14/2024 12:43 PM EDT [facility] Comment:HCV RNA not detected , unable to report quantitative results. Blood Venous blood specimen / Unknown 09/12/2024 6:59 AM EDT 09/12/2024 8:57 AM EDT Aleksander Welch MD LAB BLOOD ORDERABLES Final Resul t Performing Organization Address [facility]/State/ZIP Co de Phone Number [facility] [address] [place] [address], [place] [phone] * Lavender tube (09/12/2024 6:59 AM EDT) [facility] Extra Tube Hold for add-ons. 09/12/2024 11:01 AM EDT [facility] Comment:Auto resulted. Blood Venous blood specimen / Unknown 09/12/2024 6:59 AM EDT 09/12/2024 9:01 AM EDT Alma Coon MD LAB BLOOD ORDERABLES Kena l Result Performing Organization Address [facility] de Phone Number [facility] [address] [place] [address], * Hepatitis A antibody IgM (09/12/2024 6:59 AM EDT) [facility] Hepatitis A Antibody IgM Negative Negative LAB CHEMISTRY METHOD 09/12/2024 1:55 PM EDT [facility] Blood Venous blood specimen / Unknown 09/12/2024 6:59 AM EDT 09/12/2024 9:01 AM EDT Narrative [facility] - 09/12/2024 1:55 PM EDT Over the counter supplements containing high doses of biotin may interfere with this assay. If interference is suspected, patients shoud be retested after refraining from biotin supplements for 72 hours. Alma Coon MD LAB BLOOD ORDERABLES Kena l Result Performing Organization Address [facility] de Phone Number [facility] [address] [place] [address], * (ABNORMAL) Creatinine (09/12/2024 6:59 AM EDT) Only the most recent of2 resultswithin the time period is included. [facility] Creatinine 1.38(H) 0.70 - 1.30 mg/dL LAB CHEMISTRY METHOD 09/12/2024 9:37 PM EDT [facility] eGFR 60 >=60 mL/min/1. 73m2 LAB CHEMISTRY METHOD 09/12/2024 9:37 PM EDT [facility] Comment:Calculation based on the Chronic Kidney Disease Epidemiology Collaboration (CKD-EPI) equation refit without adjustment for race. Blood Venous blood specimen / Unknown 09/12/2024 6:59 AM EDT 09/12/2024 9:01 AM EDT Alma Coon MD LAB BLOOD ORDERABLES Kena l Result Performing Organization Address City/[facility]/ZIP Co de Phone Number [facility] [address] [place] [address], [place] [phone] * (ABNORMAL) Hepatitis B surface antibody (09/12/2024 6:59 AM EDT) Only the most recent of2 resultswithin the time period is included. Hepatitis B Surface Ab Positive (A) Negative LAB CHEMISTRY METHOD 09/12/2024 10:02 PM EDT [facility] Hepatitis B Surface Ab Quantitative >1,000.0 mIU/mL LAB CHEMISTRY METHOD 09/12/2024 10:02 PM EDT [facility] Blood Venous blood specimen / Unknown 09/12/2024 6:59 AM EDT 09/12/2024 9:01 AM EDT Narrative [facility] - 09/12/2024 10:02 PM EDT >=10 mIU/mL is considered to be consistent with immunity. us Alma Coon MD LAB BLOOD ORDERABLES Kena l Result Performing Organization Address City/[facility]/ZIP Co de Phone Number [facility] [address] [place] [address], [place] [phone] * Prothrombin time with INR (09/12/2024 6:59 AM EDT) Only the most recent of2 resultswithin the time period is included. Protime 12.8 10.6 - 13.9 sec LAB COAGULATION METHOD 09/12/2024 5:19 PM EDT [facility] INR 1.0 LAB COAGULATION METHOD 09/12/2024 5:19 PM EDT [facility] Blood Venous blood specimen / Unknown 09/12/2024 6:59 AM EDT 09/12/2024 3:12 PM EDT Alma Coon MD LAB BLOOD ORDERABLES Kena l Result [facility] [address] [place] [address], [place] [phone] * Bilirubin, total and direct (09/12/2024 6:59 AM EDT) Only the most recent of2 resultswithin the time period is included. Total Bilirubin 0.3 0.0 - 1.4 mg/dL LAB CHEMISTRY METHOD 09/12/2024 9:37 PM EDT [facility] Bilirubin, Direct 0.1 0.0 - 0.3 mg/dL LAB CHEMISTRY METHOD 09/12/2024 9:37 PM EDT [facility] Bilirubin, Indirect 0.2 0.0 - 1.1 mg/dL LAB CHEMISTRY METHOD 09/12/2024 9:37 PM EDT [facility] Blood Venous blood specimen / Unknown 09/12/2024 6:59 AM EDT 09/12/2024 9:01 AM EDT Alma Coon MD LAB BLOOD ORDERABLES Kena l Result [facility] [address] [place] [address], [place] [phone] * Alanine aminotransferase (09/12/2024 6:59 AM EDT) Only the most recent of2 resultswithin the time period is included. ALT (SGPT) 23 10 - 60 unit/L LAB CHEMISTRY METHOD 09/12/2024 9:37 PM EDT [facility] Blood Venous blood specimen / Unknown 09/12/2024 6:59 AM EDT 09/12/2024 9:01 AM EDT Alma Coon MD LAB BLOOD ORDERABLES Kena l Result Performing Organization Address City/[facility]/ZIP Co de Phone Number [facility] [address] [place] [address], * Aspartate aminotransferase (09/12/2024 6:59 AM EDT) Only the most recent of2 resultswithin the time period is included. AST (SGOT) 23 10 - 42 unit/L LAB CHEMISTRY METHOD 09/12/2024 9:37 PM EDT [facility] Comment:Hemolysis present Blood Venous blood specimen / Unknown 09/12/2024 6:59 AM EDT 09/12/2024 9:01 AM EDT Alma Coon MD LAB BLOOD ORDERABLES Kena l Result Performing Organization Address [facility] Co de Phone Number [facility] [address] [place] [address], [place] [phone] * Albumin (09/12/2024 6:59 AM EDT) Only the most recent of2 resultswithin the time period is included. 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
--- OUTSIDE RECORDS SUMMARY | 2024-12-05 08:57 | XMS_ITS | Clinical Summary ---
Author Organization [facility] Address [address] [address] Phone Care Team Providers Care Manager Hardware Name Role Phone Unavailable Primary Care Provider Unavailabl e Allergies Active Allergy Reactions Criticality Noted Date Comments Penicillins 08/22/2024 Medications Albuterol Sulfate 108 (90 Base) MCG/ACT aerosol powder Inhale Activ e apixaban (ELIQUIS) 2.5 MG tablet Take 5 mg by mouth in the morning and 5 mg in the evening. Active ascorbic acid (VITAMIN C) 250 MG tablet Take 250 mg by mouth 1 (one) time each day Active atorvastatin (LIPITOR) 40 MG tablet Take 40 mg by mouth 1 (one) time each day Active baclofen (LIORESAL) 10 MG tablet Take 10 mg by mouth in the morning and 10 mg in the evening and 10 mg before bedtime. Active DULoxetine HCl 40 MG capsule delayed-release particles Take by mouth Active acetaminophen (TYLENOL) 325 MG tablet Take by mouth every 6 (six) hours if needed for mild pain Active finasteride (PROSCAR) 5 MG tablet Take 5 mg by mouth 1 (one) time each day Do not crush, chew, or split. Active insulin aspart (NovoLOG) 100 UNIT/ML patient supplied pump Inject under the skin continuously Active insulin glargine (LANTUS) 100 UNIT/ML injection Inject under the skin every night Active Melatonin 5 MG tablet Take by mouth Active Multiple Vitamin (multivitamin) tablet Take 1 tablet by mouth 1 (one) time each day Active omeprazole (PriLOSEC) [address] capsule Take 40 mg by mouth 1 (one) time each day Do not crush or chew. Active Naloxone HCl (NARCAN NA) Administer into affected nostril(s) Active ondansetron (ZOFRAN) 4 MG tablet Take 4 mg by mouth every 8 (eight) hours if needed for nausea or vomiting Active polyethylene glycol (GLYCOLAX) 17 g packet Take 17 g by mouth 1 (one) time each day Active prazosin (MINIPRESS) 1 MG capsule Take 1 mg by mouth every night Active risperiDONE (RisperDAL) 1 MG tablet Take 1 mg by mouth in the morning and 1 mg in the evening. Active senna (SENOKOT) 8.6 MG tablet Take 1 tablet by mouth 1 (one) time each day Active QUEtiapine (SEROquel) 50 MG tablet Take 50 mg by mouth every night Active tamsulosin (FLOMAX) 0.4 MG 24 hr capsule Take 0.4 mg by mouth 1 (one) time each day Active traZODone (DESYREL) 50 MG tablet Take 50 mg by mouth every night Active sodium chloride (OCEAN) 0.65 % nasal spray Administer 1 spray into each nostril if needed for congestion Active Active Problems Problem Noted Date Diagnosed Date Hypertension 10/09/2024 Hemiplegia and hemiparesis f ollowing cerebral infarction affecting left dominant side 08/22/2024 Other specified arthritis, right ankle and foot 08/22/2024 Benign prostatic hyperplasia with lower urinary tract symptom 08/22/2024 Other bipolar disorder 08/22/2024 Occlusion and stenosis of right carotid artery 0 08/22/2024 Stage 3a chronic kidney disease 08/22/2024 Renal osteodystrophy 08/22/2024 Type 1 diabetes mellitus wit h diabetic chronic kidney disease Diabetes mellitus without me ntion of complication, type II or unspecified type, not stated as uncontrolled Esophageal reflux Chronic viral hepatitis C Hyperglycemia Other and unspecified hyperlipidemia Encounters Date Type Department Care Team Description 11/04/2024 Orders Only [facility] [address] [phone] Chinmay Saenz MD 10/09/2024 11:00 AM EDT Office Visit [facility] [address] [place] [phone] Dina Hicks ARNP Stage 3a chronic kidney disease (HCC) (Primary Dx); Hypertension 10/09/2024 Office Communication [facility] [address] [phone] Dina Hicks ARNP from Last 3 Months Social History Tobacco Use Types Packs/Day Years Used Date Smoking Tobacco: Every Day Cigarettes Smokeless Tobacco: Never Tobacco Cessation:Ready to Q uit: Not Asked; Counseling Given: Not Answered Alcohol Use Standard Drinks/Week Comments Not Currently 0 (1 standard drink = 0.6 oz pur e alcohol) Sex and Gender Information Value Date Recorded Sex Assigned at Not on file Legal Sex Male 9:21 AM EDT Gender Identity Not on file Sexual Orientation Not on file Last Filed Vital Signs Vital Sign Reading Time Taken Comments Blood Pressure 120/78 10/09/2024 11:44 AM EDT Pulse 65 10/09/2024 11:44 AM EDT Temperature - - Respiratory Rate - - Oxygen Saturation 98% 08/22/2024 11:25 AM EDT Inhaled Oxygen Concentration - - Weight 80.7 kg (178 lb) 10/09/2024 11:44 AM EDT Height - - Body Mass Index - - Plan of Treatment Upcoming Encounters Date Type Department Care Team (Late st Contact Info) Description 01/02/2025 10:00 AM EDT Office Visit [facility] [address] [phone] Chinmya Saenz MD [address] [phone] Health Maintenance Due Date Last Done Comments Hepatitis B Vaccine (1 of 3 - 19+ 3-dose series) 09/04/1986 Pneumococcal Vaccine: 50+ Ye ars (1 of 2 - PCV) 09/04/1986 Colorectal Cancer Screening: Annual FOBT 09/04/2016 Colorectal Cancer Screening: Colonoscopy 09/04/2016 Colorectal Cancer Screening: Sigmoidoscopy 09/04/2016 Diabetes: Ophthalmology Exam 08/19/2024 Diabetes: Pedal Pulse Checked 08/19/2024 Diabetes: Sensory Foot Exam 08/19/2024 Diabetes: Visual Foot Exam 08/19/2024 Influenza Vaccine (#1) 2024 Diabetes: Hemoglobin A1C 01/20/2025 025, 07/11/2024, 06/25/2024 Procedures Procedure Name Priority Date/Time Associated Diagnosis Comments PROTEIN ELECTROPHORESIS INTERPRETATION, SERUM (HC) Routine 11/04/2024 8:53 AM EDT FREE KAPPA LAMBDA LIGHT CHAINS, QUANT, SERUM Routine 11/04/2024 8:53 AM EDT RACHELL IFA SCREEN W/REFLEX TO TITER AND PATTERN Routine 11/04/2024 8:53 AM EDT AST, ALT, BILIRUBIN Routine 11/04/2024 8 :53 AM EDT HEP C ANTIBODY #2 - HC Routine 8:53 AM EDT HEPATITIS B SURFACE ANTIGEN W/REFL CONFIRM Routine 11/04/2024 8:53 AM EDT HEPATITIS B SURFACE AB (HC) Routine 11/04/2024 8:53 AM EDT PROTEIN, TOTAL, SERUM Routine 11/04/2024 8:53 AM EDT C4 COMPLEMENT Routine 11/04/2024 8:53 AM EDT Stage 3a chronic kidney disease (HCC) Renal osteodystrophy C3 COMPLEMENT Routine 11/04/2024 8:53 AM EDT Stage 3a chronic kidney disease (HCC) Renal osteodystrophy HEPATITIS B CORE ANTIBODY, IGM Routine 11/04/2024 8:53 AM EDT Stage 3a chronic kidney disease (HCC) Renal osteodystrophy PROTEIN ELECTROPHORESIS, SERUM Routine 11/04/2024 8:53 AM EDT Stage 3a chronic kidney disease (HCC) Renal osteodystrophy MAGNESIUM Routine 11/04/2024 8:53 AM EDT Stage 3a chronic kidney disease (HCC) Renal osteodystrophy CBC Routine 11/04/2024 8:53 AM EDT Stage 3a chronic kidney disease (HCC) Renal osteodystrophy VITAMIN D 25 HYDROXY Routine 11/04/2024 8:53 AM EDT Stage 3a chronic kidney disease (HCC) Renal osteodystrophy RENAL FUNCTION PANEL Routine 11/04/2024 8:53 AM EDT Stage 3a chronic kidney disease (HCC) Renal osteodystrophy PTH, INTACT Routine 11/04/2024 8:53 AM EDT Stage 3a chronic kidney disease (HCC) Renal osteodystrophy from Last 3 Months Results * AST, ALT, BILIRUBIN (11/04/2024 8:53 AM EDT) Platelets 328 K/mcL [facility] 11/04/2024 8:53 AM EDT 11/04/2024 10:45 AM EDT Chinmay Saenz MD LAB BLOOD ORDERABLES Final Re sult Performing Organization Address [facility] Co de Phone Number [facility] [address] [place] [address] * (ABNORMAL) Hep C Antibody (11/04/2024 8:53 AM EDT) [facility] Hep C Ab Positive( A) Negative [facility] Comment:If confirmation of t his positive HCV Ab screening test is needed, please redraw and order HCV Viral Load. Note--> This test may not be added on due to different specimen requirements. 11/04/2024 8:53 AM EDT 11/04/2024 10:45 AM EDT Chinmay Saenz MD LAB BLOOD ORDERABLES Final Re sult Performing Organization Address City/[facility]/ZIP Co de Phone Number [facility] [address] [place] [address] * (ABNORMAL) Hepatitis B Surface AB (11/04/2024 8:53 AM EDT) Hep B Surface Antibody Positive( A) Negative [facility] Hep B Surface Ab >1000.0 mIU/mL [facility] 11/04/2024 8:53 AM EDT 11/04/2024 10:45 AM EDT Narrative FAMILIA - 11/04/2024 1:35 PM EDT >=10 mIU/mL is considered to be consistent with immunity. Chinmay Saenz MD LAB [id number] SOLICITED RESULTS Final Result Performing Organization Address City/[facility]/ZIP Co de Phone Number [facility] [address] [place] [address] * Protein Electrophoresis Interpretation, Serum (11/04/2024 8:53 AM EDT) Pathologist Interpretation [facility] 11/04/2024 8:53 AM EDT 11/04/2024 10:45 AM EDT Chinmay Saenz MD LAB [id number] SOLICITED RESULTS Final Result Performing Organization Address City/[facility]/ZIP Co de Phone Number [facility] [address] [place] [address] * (ABNORMAL) Free [place] Lambda Light Chain, QN (11/04/2024 8:53 AM EDT) Free [place] Lt Chains, S 2.81(H) 0.33 - 1.94 mg/dL [facility] Free Lambda Lt Chains, S 1.82 0.57 - 2.63 mg/dL [facility] [place]/Lambda LC Ratio 1.54 0.26 - 1.65 [facility] Comment: Test performed at [facility], [address] , [place] [address] Nancy Frazier MD, PhD - Primary Mill Roller 11/04/2024 8:53 AM EDT 11/04/2024 11:14 AM EDT Chinmay Saenz MD LAB BLOOD ORDERABLES Final Re sult [facility] [address] [place] [address] * Hepatitis B Surface Ag w/Reflex Confirmation (11/04/2024 8:53 AM EDT) Hep B Surface Ag Negative Negative [facility] 11/04/2024 8:53 AM EDT 11/04/2024 10:45 AM EDT Narrative FAMILIA - 11/04/2024 1:45 PM EDT Over the counter supplements containing high doses of biotin may interfere with this assay. If interference is suspected, patients shoud be retested after refraining from biotin supplements for 72 hours. Chinmay Saenz MD LAB BLOOD ORDERABLES Final Re sult Performing Organization Address [facility] de Phone Number [facility] [address] [place] [address] * RACHELL IFA Screen s/Reflex to Titer and Pattern (11/04/2024 8:53 AM EDT) RACHELL Negative Negative [facility] 11/04/2024 8:53 AM EDT 11/04/2024 10:45 AM EDT Chinmay Saenz MD LAB BLOOD ORDERABLES Final Re sult Performing Organization Address [facility] Co de Phone Number [facility] [address] [place] [address] * Hepatitis B core antibody, IgM (11/04/2024 8:53 AM EDT) Hep B Core IgM Negative Negative [facility] Blood specimen (specimen) Venous blood / Unknown 11/04/2024 8:53 AM EDT 11/04/2024 10:45 AM EDT Narrative FAMILIA - 11/04/2024 2:13 PM EDT Over the counter supplements containing high doses of biotin may interfere with this assay. If interference is suspected, patients shoud be retested after refraining from biotin supplements for 72 hours. Chinmay Saenz MD LAB BLOOD ORDERABLES Final Re sult Performing Organization Address [facility]/ZIP Co de Phone Number [facility] [address] [place] [address] * (ABNORMAL) Vitamin D 25 Hydroxy (11/04/2024 8:53 AM EDT) Pathologist [facility] Vitamin D, 25-OH, Total 22.3(L) 30.0 - 80.0 ng/mL [facility] Blood specimen (specimen) Venous blood / Unknown 11/04/2024 8:53 AM EDT 11/04/2024 10:45 AM EDT Chinmay Saenz MD LAB BLOOD ORDERABLES Final Re sult Performing Organization Address [facility] Co de Phone Number [facility] [address] [place] [address] * (ABNORMAL) CBC (11/04/2024 8:53 AM EDT) WBC 8.9 4.8 - 10.8 K/[facility] RBC 4.50 4.50 - 5.50 M/[facility] Hgb 13.3(L) 13.5 - 17.5 g/dL [facility] Hematocrit 40.3(L) 42.0 - 54.0 % [facility] MCV 90.6 79.0 - 98.0 FL [facility] MCH 29.9 27.0 - 32.0 pcg [facility] MCHC 33.0 32.0 - 37.0 g/dL [facility] RDW 12.7 11.0 - 15.0 % [facility] Platelets 328 130 - 400 K/[facility] MPV 10.4 7.0 - 11.0 FL [facility] nRBC Count 0.0 <1.0 % [facility] NRBC Absolute 0.00 <0.10 K/[facility] Blood specimen (specimen) Venous blood / Unknown 11/04/2024 8:53 AM EDT 11/04/2024 10:47 AM EDT Chinmay Saenz MD LAB BLOOD ORDERABLES Final Re sult Performing Organization Address City/[facility]/ZIP Co de Phone Number [facility] [address] [place] [address] * C3 Complement (11/04/2024 8:53 AM EDT) C3 Complement 137 88 - 201 mg/dL [facility] Blood specimen (specimen) Venous blood / Unknown 11/04/2024 8:53 AM EDT 11/04/2024 10:45 AM EDT Chinmay Saenz MD LAB BLOOD ORDERABLES Final Re sult [facility] [address] [place] [address] * C4 Complement (11/04/2024 8:53 AM EDT) C4 Complement 34 16 - 47 mg/dL [facility] Blood specimen (specimen) Venous blood / Unknown 11/04/2024 8:53 AM EDT 11/04/2024 10:45 AM EDT Chinmay Saenz MD LAB BLOOD ORDERABLES Final Re sult Performing Organization Address [facility] Co de Phone Number [facility] [address] [place] [address] * Protein electrophoresis, serum (11/04/2024 8:53 AM EDT) Total Protein 7.0 6.0 - 8.0 g/dL [facility] Albumin 3.5 2.9 - 4.1 g/dL [facility] Ngydm-4-Qrnlaxai 0.2 0.1 - 0.5 g/dL [facility] Zuwwb-0-Vtsqwtrj 1.1 0.7 - 1.5 g/dL [facility] Beta Globulin 1.2 0.7 - 1.5 g/dL [facility] Gamma Globulin in Serum 1.0 0.7 - 1.9 g/dL [facility] SPEP Interpretation No M-Elan seen. Essentially normal pattern. [facility] Blood specimen (specimen) Venous blood / Unknown 11/04/2024 8:53 AM EDT 11/04/2024 10:45 AM EDT Chinmay Saenz MD LAB BLOOD ORDERABLES Final Re sult Performing Organization Address [facility] Co de Phone Number [facility] [address] [place] [address] * Protein, total (11/04/2024 8:53 AM EDT) Total Protein 7.0 6.0 - 8.0 g/dL [facility] 11/04/2024 8:53 AM EDT 11/04/2024 10:45 AM EDT Chinmay Saenz MD LAB BLOOD ORDERABLES Final Re sult Performing Organization Address [facility] de Phone Number [facility] [address] [place] [address] * PTH, Intact (11/04/2024 8:53 AM EDT) Pathologist [facility] PTH 28.1 18.5 - 88.0 pcg/mL [facility] Blood specimen (specimen) Venous blood / Unknown 11/04/2024 8:53 AM EDT 11/04/2024 10:45 AM EDT Chinmay Saenz MD LAB BLOOD ORDERABLES Final Re sult Performing Organization Address [facility] de Phone Number [facility] [address] [place] [address] * Magnesium (11/04/2024 8:53 AM EDT) [facility] Magnesium 1.9 1.9 - 2.6 mg/dL [facility] Blood specimen (specimen) Venous blood / Unknown 11/04/2024 8:53 AM EDT 11/04/2024 10:45 AM EDT Chinmay Saenz MD LAB BLOOD ORDERABLES Final Re sult Performing Organization Address [facility] de Phone Number [facility] [address] [place] [address] * (ABNORMAL) Renal Function Panel (11/04/2024 8:53 AM EDT) Pathologist [facility] Sodium 143 133 - 145 mmol/L [facility] Potassium 3.5 3.5 - 5.5 mmol/L [facility] Chloride 110 96 - 110 mmol/L [facility] Bicarbonate (CO2) 27 21 - 32 mmol/L [facility] Anion Gap 6 3 - 11 [facility] Glucose 25(LL) 70 - 100 mg/dL [facility] BUN 19 5 - 25 mg/dL [facility] Creatinine Serum 1.05 0.70 - 1.30 mg/dL [facility] eGFR 83 >=60 mL/min/1. 73m2 [facility] Comment:Calculation based on the Chronic Kidney Disease Epidemiology Collaboration (CKD-EPI) equation refit without adjustment for race. BUN/Creatinine Ratio 18.1 [facility] Albumin 3.9 3.2 - 5.0 g/dL [facility] Calcium 9.1 8.5 - 10.5 mg/dL [facility] Phosphorus 3.6 2.5 - 4.5 mg/dL [facility] Blood specimen (specimen) Venous blood / Unknown 11/04/2024 8:53 AM EDT 11/04/2024 10:45 AM EDT Chinmay Saenz MD LAB BLOOD ORDERABLES Final Re sult FAMILIA [facility] [address] [place] [address] from Last 3 Months Insurance [facility]
--- OUTSIDE RECORDS SUMMARY | 2024-12-05 08:57 | XMS_ITS | Encounter Summary ---
Author Organization [facility] Address [address] [place] [address] Care Team Providers Care Ceramic Coater Machine Name Role Phone Marcus Hudson MD Primary Care Provider [phone] Azalea Ann PA-C Primary Care Provider [phone] Encounter Details Date Type Department Care Team (Late st Contact Info) Description 08/12/2019 Lab Requisition [facility] Pathology & Laboratory Medicine - [facility] [address] [place] [address] Unknown, Provider, Social History Tobacco Use Types Packs/Day Years Used Date Smoking Tobacco: Never Assessed Sex and Gender Information Value Date Recorded Sex Assigned at Not on file Legal Sex Male 18:42 EST Gender Identity Not on file Sexual Orientation Not on file documented as of this encounter Plan of Treatment Not on file documented as of this encounter Procedures Procedure Name Priority Date/Time Associated Diagnosis Comments URINE [id number] NE RATIO (ACR) Routine 08/12/2019 13:32 EDT documented in this encounter Results * (ABNORMAL) ALBUMIN, URINE (08/12/2019 13:32 EDT) Albumin, Urine 22.2 See Note mg/dL 2019 22:09 EDT [facility] Comment: NOTE: Reference range not established Creatinine, Urine 28.9 See Note mg/dL 08/12/2019 22:09 EDT [facility] Comment: NOTE: Reference range not established Lab Urine Albumin to Creatinine Ratio 768(H) <30 ug/mg Creatinine 08/12/2019 22:09 EDT [facility] Comment: Urine Albumin/Creatinine Ratio: Normal: <30 ug/mg Creatinine Moderately increased albuminuria: 30-300 ug/mg Creatinine Althea increased albuminuria: >300 ug/mg Creatinine Urine URINE SPECIMEN OBTAINED BY CLEAN CATCH PROCEDURE / Unknown 08/12/2019 13:32 EDT 08/12/2019 21:30 EDT us Provider Unknown CHEMISTRY & BLOOD GAS ORDERA BLES Final Result [facility] [address] [place] [address] documented in this encounter Visit Diagnoses Not on filedocumented in this encounter Care Teams Ceramic Coater Machine Relationship Specialty Start Date End Date Marcus Hudson MD [address] [place] [id number] PCP - General 05/19/09 09/20/21 Azalea Ann PA-C [address] [place] [address] PCP - General 09/21/21 documented as of this encounter
--- OUTSIDE RECORDS SUMMARY | 2024-12-05 08:57 | XMS_ITS | Continuity of Care Document ---
Author Organization [facility] Address [address] [place] [address] [address] [place], [place] Phone [phone] Care Team Providers Care Wood Turning Lathe Operator Name Role Phone Naveed Degroot PA-C Care Team Information Rec eiver Unavailable KRISTI AMOS M.D. Care Team Information Rec eiver Unavailable Naveed Degroot PA-C Primary Care Physician Un available Social History Type Date Description Comments Sex Male Sex Unknown
--- OUTSIDE RECORDS SUMMARY | 2024-12-05 08:57 | XMS_ITS | Clinical Summary ---
Author Organization [facility] Address [facility] [place] [address] Care Team Providers Care Jet Dyeing Machine Operator Name Role Phone Loyd Thorne GANESH Primary Care Provider [phone] Allergies Active Allergy Reactions Criticality Noted Date Comments Penicillins Rash 12/06/2020 Medications albuteroL 90 mcg/actuation HFA Aerosol Inhaler Inhale 2 puffs into the lungs every 6 hours as needed for Wheezing. Use with spacer Active krill/om-3/dha /epa/phospho/a st (MAXIMUM RED KRILL OMEGA-3 ORAL) Take 1,000 mg by mouth daily. Active polyethylene glycoL (Miralax) 17 gram oral powder packet Take 17 g by mouth 2 times daily. 4 Active Insulin Syringe-Needle U-100 0.5 mL 31 gauge x 5/16 SyringeIndicat ions:diabetes mellitus Inject 1 each subcutaneously nightly. Indications: diabetes 200 each 4 Active aspirin 81 mg chewable tablet Take 81 mg by mouth daily. 30 tablet 4 Active baclofen (Lioresal) 10 mg tablet Take 1 tablet by mouth 3 times daily. 90 tablet 4 Active bisacodyl EC (Dulcolax) 5 mg Tablet, Delayed Release (E.C.) Take 3 tablets by mouth daily. 90 tablet [address] (Cymbalta) [address] capsule Take 1 capsule by mouth daily. 30 tablet 4 Active omeprazole (PriLOSEC) [address] capsule Take 1 capsule by mouth 2 times daily. 60 capsule 4 Active senna (Senokot) 8.6 mg tablet Take 2 tablets by mouth 2 times daily. 120 tablet 4 Active diclofenac (Voltaren) 1 % Gel Apply 2 g topically 3 times daily as needed. 200 g 4 Active psyllium husk Take 1 packet by mouth daily. 30 packet 4 Active lidocaine (Lidoderm) 5% Adhesive Patch, Medicated Apply 1 patch onto the skin daily. (leave on for 12 hours and remove for 12 hours) 60 patch 4 Active buprenorphine (Subutex) [address] 1 tablet under the tongue 3 times daily. 90 tablet 4 Active blood sugar diagnostic strips Strip Use as instructed 200 each 4 Active blood sugar diagnostic strips Strip Use as instructed 100 each 4 Active Semglee U-100 Insulin 100 unit/mL SolutionIndica tions:type 1 diabetes mellitus Inject 10 Units subcutaneously nightly. Indications: type 1 diabetes mellitus 10 mL 4 Active Semglee U-100 Insulin 100 unit/mL SolutionIndica tions:type 1 diabetes mellitus Inject 18 Units subcutaneously daily. Indications: type 1 diabetes mellitus 10 mL 4 Active naloxone (Narcan) 4 mg/actuation nasal spray 1 spray by Nasal route once as needed (For opioid overdose) for up to 2 doses. [place] into one nostril (either left or right). 2 each 4 Active Admelog U-100 Insulin lispro 100 unit/mL SolutionIndica tions:type 2 diabetes mellitus Inject 0-16 Units subcutaneously 3 times daily (before meals). Please see administration instructions based on size of your meal. Indications: type 2 diabetes mellitus 12 mL 4 Active pregabalin (Lyrica) 75 mg capsule Take 1 capsule by mouth 3 times daily. 90 tablet 4 Active atorvastatin (Lipitor) 40 mg tablet Take 1 tablet by mouth every evening. 30 tablet 4 Active risperiDONE (RisperDAL) 1 mg tablet Take 1 tablet by mouth nightly. 30 tablet 4 Active tamsulosin (Flomax) 0.4 mg capsule Take 2 capsules by mouth daily. 90 tablet 3 4 Active apixaban (Eliquis) 5 mg tablet Take 1 tablet by mouth 2 times daily. 60 tablet Active Active Problems Problem Noted Date Diagnosed Date Pressure injury of deep tissue of sacral region 11/28/2023 Severe opioid use disorder 11/26/2023 Toxic metabolic encephalopathy 11/26/2023 DKA (diabetic ketoacidosis) 11/26/2023 ROESANN (acute kidney injury) 11/26/2023 Coag negative Staphylococcus bacteremia 11/26/19 Altered mental status 08/11/2023 Constipation 07/10/2023 Urinary retention due to benign prostatic hyperp lasia 06/23/2023 R MCA/MATEO borderzone infarct s; associated with an atherosclerotic ICA occlusion 06/18/2023 Overview (06/20/2023): Admitted 06/15/2023 Dx: right hemispheric infarction associated with an atherosclerotic ICA occlusion Antithrombotic stroke prevention Statin therapy Lipid Panel Lab Results Component Value Date CHLPL 141 06/16/2023 HDL 36 06/16/2023 CHOLHDL 3.9 06/16/2023 TRIG 115 06/16/2023 LDLDIRECT 81 06/16/2023 Blood Pressure goals/control Rx SBP> Ideally: Glycemic control Lab Results Component Value Date HA1C 7.7 (H) 06/16/2023 Smoking/tobacco Social History Tobacco Use Smoking Status Every Day Years: 25 Types: Cigarettes Passive exposure: Current Smokeless Tobacco Not on file VTE ppx Fluids Nutrition Carb Control diet 60/60/75 CHO counting level 2 Discharge barriers (eg., guardianship, advance directive, insurance) Meds reconciled? NIHSS (need approx 36 hour post t-PA and intervention) NIH Stroke Scale (from Navigator) NIH Stroke Scale Date 06/15/23 NIH Stroke Scale Time 2200 Level of Consciousness 0 LOC Questions 0 LOC Commands 0 Best Gaze 0 Vision 0 Facial Palsy 0 Motor Arm, Left 1 Motor Arm, Right 0 Motor Leg, Left 1 Motor Leg, Right 0 Limb Ataxia 1 Sensory 0 Best Language 0 Dysarthria 0 Extinction and Inattention: 1 NIH Total Score 4 Occlusion of right internal carotid artery 06/18 Chronic lacunar ischemic stroke 06/18/2023 Arthritis of right ankle 12/06/2020 Chronic hepatitis C 12/06/2020 Chronic pain of right ankle 12/06/2020 Chronic pain of right hand 12/06/2020 Cigarette smoker 12/06/2020 Diabetes mellitus type 1 12/06/2020 Fibrosis of liver 12/06/2020 History of positive hepatitis C 12/06/2020 Panic disorder 12/06/2020 H/O drug abuse 06/22/2020 Diabetic retinopathy 06/22/2020 Hypertension 06/22/2020 Marijuana use 06/22/2020 Bipolar disorder 04/25/2017 Chronic GERD 04/25/2017 Chronic low back pain 04/25/2017 Type 1 diabetes mellitus with retinopathy 2017 Opioid dependence 04/25/2017 Panic disorder without agoraphobia 04/25/2017 Post-traumatic stress disorder, chronic 04/25/19 18 Social History Tobacco Use Types Packs/Day Years Used Date Smoking Tobacco: Every Day Cigarettes Passive Smoke Exposure: Current Tobacco Cessation:Ready to Q uit: Yes; Counseling Given: Yes Alcohol Use Standard Drinks/Week Comments Yes 0 (1 standard drink = 0.6 oz pur e alcohol) [facility] Utilities Answer Date Recorded In the past 12 months has th e [employer], [employer], oil, or water [employer] threatened to shut off services in your home? No 11/26/2023 Hunger Vital Sign Answer Date Recorded Within the past 12 months, y ou worried that your food would run out before you got the money to buy more. Never true 11/26/19 24 Within the past 12 months, t he food you bought just didn't last and you didn't have money to get more. Never true 11/26/2023 PRAPARE - Transportation Answer Date Re corded In the past 12 months, has l ack of transportation kept you from medical appointments or from getting medications? No 08/2023 In the past 12 months, has l ack of transportation kept you from meetings, work, or from getting things needed for daily living? No 11/26/2023 Housing Stability Vital Sign Answer Freddy e Recorded In the last 12 months, was t here a time when you were not able to pay the mortgage or rent on time? Patient unable to answer 08/13/2023 In the last 12 months, how m any places have you lived? 1 08/13/2023 In the last 12 months, was t here a time when you did not have a steady place to sleep or slept in a long-term (including now)? No 08/13/2023 Housing Stability Vital Sign Answer Freddy e Recorded In the last 12 months, was t here a time when you were not able to pay the mortgage or rent on time? No 11/26/2023 In the past 12 months, how m any times have you moved where you were living? 1 11/26/2023 At any time in the [facility], were you homeless or living in a long-term (including now)? No 11/26/2023 DH IPV Inpatient Questions Answer Date Recorded Does Anyone Try to Keep You From Having Contact with Others or Doing Things Outside Your Home? no [id number] Feels Threatened by Someone other (see comments) 11/30/2023 Feels Unsafe at Home or Work/School yes 11/30/2023 Physical Signs of Abuse Present no 11/30/2023 Sex and Gender Information Value Date Recorded Sex Assigned at Not on file Legal Sex Male 7:11 AM EST Gender Identity Not on file Sexual Orientation Not on file Last Filed Vital Signs Vital Sign Reading Time Taken Comments Blood Pressure 115/69 12/28/2023 2:28 PM EDT Pulse 80 12/28/2023 7:39 AM EDT Temperature 36.9 C (98.4 F) 12/28/2023 2:28 PM EDT Respiratory Rate 18 12/28/2023 2:28 PM EDT Oxygen Saturation 96% 12/28/2023 2:28 PM EDT Inhaled Oxygen Concentration - - Weight 76.8 kg (169 lb 6.4 oz) 12/28/2023 9:23 A M EDT Height 170 cm (5' 6.93 ) 12/12/2023 1:32 PM EDT Body Mass Index 26.59 12/12/2023 1:32 PM EDT Plan of Treatment Health Maintenance Due Date Last Done Comments CT Colonography 1967 Colonoscopy 1967 Colorectal Cancer Screening 1967 FIT DNA 1967 FIT 1967 Sigmoidoscopy (10 year) with FIT yearly 1967 Sigmoidoscopy 1967 DM Ophthalmology Exam 09/04/1977 Hepatitis A vaccine 0-18 yrs and Risk (1 of 2 - Risk 2-dose series) 09/04/1986 Hepatitis B vaccine (0-59 yr s) and Risk (1) 09/04/1986 Pneumoccocal Vaccine: 50+ (1 of 2 - PCV) 09/04/1986 Tetanus/Diphtheria/Pertussis Vaccines (1 - Tdap) 09/04/1986 Zoster vaccine (1 of 2) 09/04/2017 Covid-19 Vaccine (6 - 2023-2 5 season) 2023 04/11/2023, 01/18/2022, 05/11/2021, Additional history exists DM Hemoglobin A1c 02/26/2024 11/26/2023, 06/16/2023 Influenza (Flu) vaccine (1 o f 1 - Influenza standard series) 12/22/2024 DM Creatinine yearly 12/27/2024 12/28/2023, 12/27/2023, 12/26/2023, Additional history exists Lipid Screening Discontinued 06/16/2023 HIV screen Completed 12/06/2023 Procedures Procedure Name Priority Date/Time Associated Diagnosis Comments BASIC METABOLIC PANEL Routine 12/28/2023 6:20 AM EDT BLOOD GAS ARTERIAL POC Routine 12/06/2023 5:33 AM EDT HEMOGLOBIN A1C Add-On 11/26/2023 5:59 AM EDT HDL/CHOL PROFILE Routine 06/16/2023 6:35 AM EST from Last 3 Months or Most Recently Relevant to Health Maintenance Results * (ABNORMAL) Basic Metabolic Panel (12/28/2023 6:20 AM EDT) Glucose 127 65 - 199 mg/dL 12/28/2023 8:52 AM EDT [facility] Comment:Glucose Concentratio n >=200 mg/dL plus symptoms is consistent with Diabetes Mellitus. Blood Urea Nitrogen 55(H) 10 - 20 mg/dL 12/28/2023 8:52 AM EDT [facility] Creatinine 1.38 0.80 - 1.50 mg/dL 12/28/2023 8:52 AM EDT [facility] Sodium 138 135 - 145 mMol/L 12/28/2023 8:52 AM EDT [facility] Potassium 4.3 3.5 - 5.0 mMol/L 12/28/2023 8:52 AM EDT [facility] Chloride 103 98 - 107 mMol/L 12/28/2023 8:52 AM EDT [facility] Carbon Dioxide 26 22 - 31 mMol/L 12/28/2023 8:52 AM EDT [facility] Anion Gap 9 5 - 15 mMol/L 12/28/2023 8:52 AM EDT [facility] Calcium 9.3 8.5 - 10.5 mg/dL 12/28/2023 8:52 AM [facility] Est Glomerular Filtration Rate - Male 60 mL/min/1. 73 m 12/28/2023 8:52 AM T [facility] Comment: This patient's estimated GFR was calculated using the 2020 CKD-EPI equation. The estimated GFR can vary from the measured GFR by up to 30% in the absence of rapidly changing kidney function. Assessment of the estimated GFR is not appropriate when creatinine concentrations are rapidly changing. For clinical situations in which a more precise estimate of GFR is necessary, consider alternative methods of GFR estimation such as a 24-hour urine creatinine clearance. Assignment of CKD stage 1 - 5 for patients with an eGFR near the transition point between stages may be based on clinical assessment of muscle mass and symptoms in addition to eGFR. Link: eGFR Calculator [employer] Blood VENOUS BLOOD SPECIMEN / Unknown IP Care Team Draw / Unknown 12/28/2023 6:20 AM EDT 12/28/2023 6:27 AM EDT us Jackson Rivero MD CHEMISTRY ORDERABLES Final Re sult [facility] [place] [address] * (ABNORMAL) Blood Gas, Arterial POC (12/06/2023 5:33 AM EDT) pH, Arterial 7.40 7.35 - 7.45 12/06/2023 6:53 AM EDT [facility] PCO2, Arterial 40 35 - 45 mmHg 12/06/2023 6:53 AM [facility] PO2, Arterial 97 85 - 104 mmHg 12/06/2023 6:53 AM [facility] Bicarbonate, Arterial 24.2 20.0 - 26.0 mmol/L 12/06/2023 6:53 AM [facility] Base Excess, Arterial -0.5 -3.0 - 3.0 mmol/L 12/06/2023 6:53 AM [facility] Hemoglobin, Arterial 9.4(L) 13.7 - 16.5 g/dL 12/06/2023 6:53 AM [facility] Oxyhemoglobin, Arterial 96.3 94.0 - 97.0 % 12/06/2023 6:53 AM [facility] Carboxyhemoglobin, Arterial 0.6 % 12/06/2023 6:53 AM [facility] Comment: Nonsmokers: 0.5-1.5% COHB Smokers: Variable but usually less than 10% Toxic: 20-30% COHB Lethal: Greater than 60% COHB Methemoglobin, Arterial 0.3 <=1.5 % 12/06/2023 6:53 AM [facility] Sodium, Arterial 136 135 - 145 mmol/L 12/06/2023 6:53 AM [facility] Potassium, Arterial 3.9 3.5 - 5.0 mmol/L 12/06/2023 6:53 AM [facility] Chloride, Arterial 103 98 - 107 mmol/L 12/06/2023 6:53 AM [facility] Lactate, Arterial 1.8 0.5 - 2.2 mmol/L 12/06/2023 6:53 AM [facility] Fraction of Inspired Oxygen 21 % 12/06/2023 6:53 AM [facility] PF Ratio 462 Ratio 12/06/2023 6:53 AM [facility] Comment:PF ratio calculated using the non-temperature corrected pO2 result. IONIZED CALCIUM, ARTERIAL 1.18 1.15 - 1.33 mmol/L 12/06/2023 6:53 AM EDT [facility] Glucose, Arterial 138 65 - 199 mg/dL 12/06/2023 6:53 AM EDT [facility] Comment:Glucose Concentratio n >=200 mg/dL plus symptoms is consistent with Diabetes Mellitus. Blood ARTERIAL BLOOD / Unknown 12/06/2023 5:33 AM EDT 12/06/2023 6:53 AM EDT us Fam Vanessa DO POINT OF CARE TEST ORDERABLES Fi nal Result Performing Organization Address City/[facility]/ZIP Co de Phone Number [facility] [place] [address] * (ABNORMAL) Hemoglobin A1c (11/26/2023 5:59 AM EDT) Hemoglobin A1c 8.6(H) 4.3 - 5.6 % 11/26/2023 8:08 AM EDT [facility] Comment: Per ADA guidelines, without clear symptoms of hyperglycemia or a random plasma glucose >199 mg/dL, a single abnormal A1c measurement cannot be used to diagnose diabetes mellitus. The diagnosis must be confirmed by either 1) a concurrent abnormal fasting plasma glucose or impaired response to oral glucose tolerance testing, or 2) an additional abnormal A1c, impaired fasting plasma glucose, or impaired response to oral glucose tolerance testing on a different day. A1c results obtained on patients with altered red blood cell turnover may not be accounting representative of glycemic control. Reference Interval: 4.3 - 5.6% 5.7 - 6.4%: Consistent with prediabetes >=6.5%: Consistent with diagnosis of diabetes mellitus Estimated Average Glucose 200 mg/dL 11/26/2023 8:08 AM EDT [facility] Blood VENOUS BLOOD SPECIMEN / Unknown IP Care Team Draw / Unknown 11/26/2023 5:59 AM EDT 11/26/2023 6:08 AM EDT us Jack Bernal MD CHEMISTRY ORDERABLES Final R esult [facility] [place] [address] * HDL/Cholesterol Profile (06/16/2023 6:35 AM EST) Cholesterol, Total 141 mg/dL [facility] Comment: Lower Risk: <200 mg/dL Average Risk: 200-239 mg/dL Higher Risk: >ud=460 mg/dL HDL Cholesterol 36 mg/dL [facility] Comment: Males: Higher Risk: <40 mg/dL Females: Higher Risk: <50 mg/dL Cholesterol/HDL Ratio 3.9 ratio [facility] Chol/HDL Interpretation See Note [facility] Comment: Lipid management should be guided by a patient s ASCVD risk, goals and preferences. ACC/AHA Guidelines recommend high intensity statin if clinical ASCVD or LDL greater than or equal to 190 mg/dL. http://Coinify.com/QLY-APH-Kxjiotqex Measure LDL if Total Cholesterol minus HDL Cholesterol is greater than 220 mg/dL. Adults aged 40-75 with LDL 70-189 mg/dL should have their 10 year ASCVD risk estimated with the ACC/AHA ASCVD risk drink mixer http://tools.acc.org/MQAXH-Flff-Azlgrksvr/ Statin should be discussed if risk greater than or equal to 7.5% in non-diabetics. With diabetes, moderate intensity statin is recommended if risk less than 7.5%, high intensity if risk greater than or equal to 7.5%. Annual lipid monitoring on statins is not necessary. Lifestyle modification is a critical component of ASCVD risk reduction. 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 Advance Directives and Living Will 12/04/2023 12:27 PM Jo Goss * Attempt Cardiopulmonary Resuscitation - Inpatient (Latest Code Status on File) Date Activated Date Inactivated Comments 11/26/2023 5:34 AM 12/28/2023 6:10 PM Question Answer Comments Code Status decision made by: Patient Content of discussion: full code * Attempt Cardiopulmonary Resuscitation - Inpatient Date Activated Date Inactivated Comments 08/11/2023 7:02 PM 08/30/2023 5:04 PM Question Answer Comments Code Status decision made by: Patient * Attempt Cardiopulmonary Resuscitation - Inpatient Date Activated Date Inactivated Comments 06/15/2023 10:17 PM 08/01/2023 12:43 PM Question Answer Comments Code Status decision made by: Patient Care Teams Jet Dyeing Machine Operator Relationship Specialty Start Date End Date Loyd Thorne APRN [address] [place] [address] PCP - General Family Medicine 04/25/17
== END 2024-12-05 09:45 | disposition home or self-care (01) ==
LOC: HO.HGI 08:41
PROVIDERS: PCP Hospitalist; Visit Provider Nurse Practitioner
DX: Z01.818 Encounter for other preprocedural examination (principal); Z12.11 Encounter for screening for malignant neoplasm of colon; G81.94 Hemiplegia, unspecified affecting left nondominant side; L98.422 Non-pressure chronic ulcer of back with fat layer exposed; R76.8 Other specified abnormal immunological findings in serum; Z79.01 Long term (current) use of anticoagulants
CPT/HCPCS: 99203

== ENCOUNTER → 2024-12-05 08:41 | Outpatient (BNVA) | payer MEDICAID, SELFPAY | PROVIDERS: PCP Hospitalist; Visit Provider Nurse Practitioner | DX: Z01.818 Encounter for other preprocedural examination (principal); F17.200 Nicotine dependence, unspecified, uncomplicated; G81.94 Hemiplegia, unspecified affecting left nondominant side; L98.422 Non-pressure chronic ulcer of back with fat layer exposed; R76.8 Other specified abnormal immunological findings in serum; I82.509 Chronic embolism and thrombosis of unspecified deep veins of unspecified lower extremity; Z79.01 Long term (current) use of anticoagulants; F11.90 Opioid use, unspecified, uncomplicated | CPT/HCPCS: 99202 ==

== ENCOUNTER 2025-01-09 11:18 | Outpatient (REF) | payer MEDICAID, SELFPAY ==
--- NOTE | ~2025-01-09 | US_ITS ---
EXAMINATION: US KIDNEY BILATERAL HISTORY: STAGE 3,CHRONIC KIDNEY DISEASE, RENAL OSTEODYSTROPHY TECHNIQUE: Real-time grayscale ultrasound imaging of the kidneys was performed and images were reviewed. COMPARISON: There are no prior studies available for comparison. FINDINGS: Right kidney: The right kidney measures 9.2 x 4.2 x 4.3 cm. There is mild renal cortical thinning. There is a cortical defect in the interpolar region which may represent scarring or a junctional parenchymal defect. There are no masses. There is no hydronephrosis or renal calculi. Left Kidney: The left kidney measures 9.9 x 5.5 x 4.4 cm. There is mild renal cortical thinning. There are no masses. There is no hydronephrosis or renal calculi. US/US renal BI IMPRESSION: Mild renal cortical thinning. Electronically signed by: Jurgen Rojas MD 01/09/2025 12:22 PM EDT
--- OUTSIDE RECORDS SUMMARY | 2025-01-09 11:59 | XMS_ITS | Clinical Summary ---
Author Organization [address] [facility] Address [address] [place] [address] Phone Care Team Providers Care Flight Crew Time Clerk Name Role Phone Aleksander Welch MD Primary Care Provider [phone] Encounters Date Type Department Care Team Description 10/20/2024 Lab Requisition [facility] - Main Lab [address] [facility] [place] [address] Aleksander Welch MD Type 1 diabetes mellitus with diabetic polyneuropathy (CMS/HCC V24, CMS/HCC V28) from Last 3 [...] 09/04/1986 Zoster Vaccines (1 of 2) 09/04/2017 Colorectal Cancer Screening: Colonoscopy 02/27/2024 Social Influencers of Health Screening 02/27/2024 Depression Screening 04/23/2024 Diabetes: Annual Urine Albumin-Creatinine Ratio (uACR) 07/11/2024 COVID-19 Vaccine ( - season) 2024 Influenza Vaccine (#1) 2024 Diabetes: Blood Sugar Control Test (HGBA1C) 04/21/2025 10/20/2024, 07/11/2024, 06/25/2024, Additional history exists Diabetes: Annual GFR (Glomerular Filtration Rate) 11/04/2025 11/04/2024, 09/24/2024, 09/12/2024, Additional history exists Hypertension/CHF/CAD Annual BMP Blood Test 11/04/2025 11/04/2024, 09/24/2024, 09/12/2024, Additional history exists Cholesterol Screening (Lipid Panel) 09/24/2029 09/24/2024, 03/26/2024, 02/27/2024 RSV Immunization Adult Patients (1 - 1-dose 75+ series) 09/04/2042 HIV Screening Completed 09/12/2024, 09/12/2024 Hepatitis C [...] Procedure Name Priority Date/Time Associated Diagnosis Comments [place] PROTEIN ELECTROPHORETIC FRACTIONATION & QUANTITATION SERUM Routine [...] with diabetic polyneuropathy (CMS/HCC V24, CMS/HCC V28) LIPID PANEL WITH REFLEX TO DIRECT LDL Routine 09/24/2024 7:05 AM EDT Chronic kidney disease, stage 3a (CMS/HCC V24, CMS/HCC V28) Other hyperlipidemia Anemia, unspecified Benign prostatic hyperplasia with lower urinary tract symptoms Encounter for other specified special examinations HIV 1, 2 ANTIBODY, P24 ANTIGEN WITH REFLEX TO DIFFERENTIATION Routine 09/12/2024 6:59 AM EDT Chronic viral hepatitis C (CMS/HCC V24, CMS/HCC V28) from Last 3 Months or Most Recently Relevant to Health Maintenance Results * (ABNORMAL) Hepatitis C antibody (11/04/2024 8:53 AM EDT) Hepatitis C Antibody Positive (A) Negative LAB CHEMISTRY METHOD 11/04/2024 2:12 PM EDT [facility] Comment:If confirmation of t [...] ORDERABLES Final Re sult Performing Organization Address [facility] de Phone Number [facility] [address] [place] [address], [place] [phone] * Hepatitis B surface antigen with reflex to confirmation (11/04/2024 8:53 AM EDT) Pathologist [facility] Hepatitis B Surface Ag Negative Negative LAB CHEMISTRY METHOD 11/04/2024 1:45 PM EDT [facility] Blood Venous blood specimen / Unknown Venipuncture / Unknown 11/04/2024 8:53 AM EDT 11/04/2024 10:45 AM EDT Narrative [facility] - 11/04/2024 1:45 PM EDT Over the counter supplements containing high doses of biotin may interfere with this assay. If interference is suspected, patients shoud be retested after refraining from biotin supplements for 72 hours. us Chinmay Saenz MD LAB BLOOD ORDERABLES Final Re sult Performing Organization Address [facility]/ZIP Co de Phone Number [facility] [address] [place] [address], [place] [phone] * PATHOLOGIST REVIEW PROTEIN ELECTROPHORESIS (11/04/2024 8:53 AM EDT) Pathologist Interpretation 11/06/2024 2:35 PM EDT [facility] Blood Venous blood specimen / Unknown Venipuncture / Unknown 11/04/2024 8:53 AM EDT 11/04/2024 10:45 AM EDT Chinmay Saenz MD LAB BLOOD ORDERABLES Final Re sult [facility] [address] [place] [address], [place] [phone] * AST, ALT, Bilirubin ELR state reportables (11/04/2024 8:53 AM EDT) Platelets 328 K/mcL LAB HEMETOLOGY METHOD 11/04/2024 2:33 PM EDT [facility] Blood Venous blood specimen / Unknown Venipuncture / Unknown 11/04/2024 8:53 AM EDT 11/04/2024 10:45 AM EDT Chinmay Saenz MD LAB BLOOD ORDERABLES Final Re sult Performing Organization Address City/[facility]/ZIP Co de Phone Number [facility] [address] [place] [address], [place] [phone] * (ABNORMAL) [place]-lambda free light chains, quantitative (11/04/2024 8:53 AM EDT) [place] Free Light Chain 2.81(H) 0.33 - 1.94 mg/dL 11/06/2024 12:42 PM EDT [facility] Lambda Free Light Chain 1.82 0.57 - 2.63 mg/dL 11/06/2024 12:42 PM EDT [facility] [place]/Lambda FLC Ratio 1.54 0.26 - 1.65 11/06/2024 12:42 PM EDT [facility] Comment: Test performed at [facility], [address], [place] [address] Nancy Frazier MD, PhD - Paradichlorobenzene Tender Blood Venous blood specimen / Unknown Venipuncture / Unknown 11/04/2024 8:53 AM EDT 11/04/2024 10:45 AM EDT Chinmay Saenz MD LAB BLOOD ORDERABLES Final Re sult [facility] [address] [place] [address] * RACHELL IFA with titer and pattern (11/04/2024 8:53 AM EDT) RACHELL Negative Negative 11/05/2024 1:33 PM EDT [facility] Blood Venous blood specimen / Unknown Venipuncture / Unknown 11/04/2024 8:53 AM EDT 11/04/2024 10:45 AM EDT Chinmay Saenz MD LAB BLOOD ORDERABLES Final Re sult Performing Organization Address City/[facility] Co de Phone Number [facility] [address] [place] [address], * Hepatitis B core antibody IgM (11/04/2024 8:53 AM EDT) Hep B Core IgM Negative Negative LAB CHEMISTRY METHOD 11/04/2024 2:13 PM EDT [facility] Blood Venous blood specimen / Unknown Venipuncture / Unknown 11/04/2024 8:53 AM EDT 11/04/2024 10:45 AM EDT Narrative [facility] - 11/04/2024 2:13 PM EDT Over the counter supplements containing high doses of biotin may interfere with this assay. If interference is suspected, patients shoud be retested after refraining from biotin supplements for 72 hours. us Chinmay Saenz MD LAB BLOOD ORDERABLES Final Re sult Performing Organization Address [facility]/ZIP Co de Phone Number [facility] [address] [place] [address], [place] [phone] * (ABNORMAL) Hepatitis B surface antibody quantitative (11/04/2024 8:53 AM EDT) Pathologist [facility] Hepatitis B Surface Ab Positive (A) Negative LAB CHEMISTRY METHOD 11/04/2024 1:35 PM EDT [facility] Hepatitis B Surface Ab Quantitative >1,000.0 mIU/mL LAB CHEMISTRY METHOD 11/04/2024 1:35 PM EDT [facility] Blood Venous blood specimen / Unknown Venipuncture / Unknown 11/04/2024 8:53 AM EDT 11/04/2024 10:45 AM EDT Narrative [facility] - 11/04/2024 1:35 PM EDT >=10 mIU/mL is considered to be consistent with immunity. Chinamy Saenz MD LAB BLOOD ORDERABLES Final Re sult Performing Organization Address [facility] de Phone Number [facility] [address] [place] [address], [place] [phone] * (ABNORMAL) Vitamin D 25 hydroxy (11/04/2024 8:53 AM EDT) [facility] Vit D, 25-Hydroxy 22.3(L) 30.0 - 80.0 ng/mL LAB CHEMISTRY METHOD 11/04/2024 1:34 PM EDT [facility] Blood Venous blood specimen / Unknown Venipuncture / Unknown 11/04/2024 8:53 AM EDT 11/04/2024 10:45 AM EDT Chinmay Saenz MD LAB BLOOD ORDERABLES Final Re sult Performing Organization Address City/[facility]/ZIP Co de Phone Number [facility] [address] [place] [address], * (ABNORMAL) Complete blood count (11/04/2024 8:53 AM EDT) [facility] WBC 8.9 4.8 - 10.8 K/mcL LAB HEMETOLOGY METHOD 11/04/2024 10:53 AM EDT [facility] RBC 4.50 4.50 - 5.50 M/mcL LAB HEMETOLOGY METHOD 11/04/2024 10:53 AM EDT [facility] Hemoglobin 13.3(L) 13.5 - 17.5 g/dL LAB HEMETOLOGY METHOD 11/04/2024 10:53 AM [facility] Hematocrit 40.3(L) 42.0 - 54.0 % LAB HEMETOLOGY METHOD 11/04/2024 10:53 AM [facility] MCV 90.6 79.0 - 98.0 FL LAB HEMETOLOGY METHOD 11/04/2024 10:53 AM [facility] MCH 29.9 27.0 - 32.0 pcg LAB HEMETOLOGY METHOD 11/04/2024 10:53 AM [facility] MCHC 33.0 32.0 - 37.0 g/dL LAB HEMETOLOGY METHOD 11/04/2024 10:53 AM [facility] RDW 12.7 11.0 - 15.0 % LAB HEMETOLOGY METHOD 11/04/2024 10:53 AM [facility] Platelets 328 130 - 400 K/mcL LAB HEMETOLOGY METHOD 11/04/2024 10:53 AM [facility] MPV 10.4 7.0 - 11.0 FL LAB HEMETOLOGY METHOD 11/04/2024 10:[facility] NRBC 0.0 <1.0 % LAB HEMETOLOGY METHOD 11/04/2024 10:53 AM EDT [facility] NRBC Absolute 0.00 <0.10 K/mcL LAB HEMETOLOGY METHOD 11/04/2024 10:53 AM EDT [facility] Blood Venous blood specimen / Unknown Venipuncture / Unknown 11/04/2024 8:53 AM EDT 11/04/2024 10:47 AM EDT us Chinmay Saenz MD LAB BLOOD ORDERABLES Final Re sult Performing Organization Address [facility] Co de Phone Number [facility] [address] [place] [address], [place] [phone] * C3 complement (11/04/2024 8:53 AM EDT) C3 Complement 137 88 - 201 mg/dL LAB CHEMISTRY METHOD 11/04/2024 12:41 PM EDT [facility] Blood Venous blood specimen / Unknown Venipuncture / Unknown 11/04/2024 8:53 AM EDT 11/04/2024 10:45 AM EDT us Chinmay Saenz MD LAB BLOOD ORDERABLES Final Re sult Performing Organization Address [facility] Co de Phone Number [facility] [address] [place] [address], [place] [phone] * C4 complement (11/04/2024 8:53 AM EDT) C4 Complement 34 16 - 47 mg/dL LAB CHEMISTRY METHOD 11/04/2024 12:41 PM EDT [facility] Blood Venous blood specimen / Unknown Venipuncture / Unknown 11/04/2024 8:53 AM EDT 11/04/2024 10:45 AM EDT us Chinmay Saenz MD LAB BLOOD ORDERABLES Final Re sult Performing Organization Address City/State/[facility] Co de Phone Number [facility] [address] [place] [address], [place] [phone] * Protein electrophoresis, serum (11/04/2024 8:53 AM EDT) Total Protein 7.0 6.0 - 8.0 g/dL LAB CHEMISTRY METHOD 11/06/2024 2:35 PM EDT [facility] Albumin, Serum 3.5 2.9 - 4.1 g/dL LAB CHEMISTRY METHOD 11/06/2024 2:35 PM EDT [facility] Alpha 1 Globulin (g/dL) 0.2 0.1 - 0.5 g/dL LAB CHEMISTRY METHOD 11/06/2024 2:35 PM EDT [facility] Alpha 2 Globulin (g/dL) 1.1 0.7 - 1.5 g/dL LAB CHEMISTRY METHOD 11/06/2024 2:35 PM EDT [facility] Beta (g/dL) 1.2 0.7 - 1.5 g/dL LAB CHEMISTRY METHOD 11/06/2024 2:35 PM EDT [facility] Gamma Globulin (g/dL) 1.0 0.7 - 1.9 g/dL LAB CHEMISTRY METHOD 11/06/2024 2:35 PM EDT [facility] SPEP Interpretation No M-Elan seen. Essentially normal pattern. LAB CHEMISTRY METHOD 11/06/2024 2:35 PM EDT [facility] Blood Venous blood specimen / Unknown Venipuncture / Unknown 11/04/2024 8:53 AM EDT 11/04/2024 10:45 AM EDT Chinmay Saenz MD LAB BLOOD ORDERABLES Final Re sult Performing Organization Address City/[facility]/ZIP Co de Phone Number [facility] [address] [place] [address], [place] [phone] * Protein, total (11/04/2024 8:53 AM EDT) Total Protein 7.0 6.0 - 8.0 g/dL LAB CHEMISTRY METHOD 11/04/2024 12:42 PM EDT [facility] Blood Venous blood specimen / Unknown Venipuncture / Unknown 11/04/2024 8:53 AM EDT 11/04/2024 10:45 AM EDT us Chinmay Saenz MD LAB BLOOD ORDERABLES Final Re sult [facility] [address] [place] [address], [place] [phone] * Parathyroid hormone intact (11/04/2024 8:53 AM EDT) PTH 28.1 18.5 - 88.0 pcg/mL LAB CHEMISTRY METHOD 11/04/2024 1:34 PM EDT [facility] Blood Venous blood specimen / Unknown Venipuncture / Unknown 11/04/2024 8:53 AM EDT 11/04/2024 10:45 AM EDT us Chinmay Saenz MD LAB BLOOD ORDERABLES Final Re sult Performing Organization Address City/[facility]/ZIP Co de Phone Number [facility] [address] [place] [address], [place] [phone] * Magnesium (11/04/2024 8:53 AM EDT) Magnesium 1.9 1.9 - 2.6 mg/dL LAB CHEMISTRY METHOD 11/04/2024 12:30 PM EDT [facility] Blood Venous blood specimen / Unknown Venipuncture / Unknown 11/04/2024 8:53 AM EDT 11/04/2024 10:45 AM EDT us Chinmay Saenz MD LAB BLOOD ORDERABLES Final Re sult [facility] [address] [place] [address], * (ABNORMAL) Renal function panel (11/04/2024 8:53 AM EDT) Sodium 143 133 - 145 mmol/L LAB CHEMISTRY METHOD 11/04/2024 2:57 PM EDT [facility] Potassium 3.5 3.5 - 5.5 mmol/L LAB CHEMISTRY METHOD 11/04/2024 2:57 PM [facility] Chloride 110 96 - 110 mmol/L LAB CHEMISTRY METHOD 11/04/2024 2:57 PM [facility] CO2 27 21 - 32 mmol/L LAB CHEMISTRY METHOD 11/04/2024 2:57 PM [facility] Anion Gap 6 3 - 11 LAB CHEMISTRY METHOD 11/04/2024 2:57 PM [facility] Glucose 25(LL) 70 - 100 mg/dL LAB CHEMISTRY METHOD 11/04/2024 2:57 PM [facility] BUN 19 5 - 25 mg/dL LAB CHEMISTRY METHOD 11/04/2024 2:57 PM [facility] Creatinine 1.05 0.70 - 1.30 mg/dL LAB CHEMISTRY METHOD 11/04/2024 2:57 PM EDT [facility] eGFR 83 >=60 mL/min/1. 73m2 LAB CHEMISTRY METHOD 11/04/2024 2:57 PM [facility] Comment:Calculation based on the Chronic Kidney Disease Epidemiology Collaboration (CKD-EPI) equation refit without adjustment for race. BUN/Creatinine Ratio 18.1 LAB CHEMISTRY METHOD 11/04/2024 2:57 PM [facility] Albumin 3.9 3.2 - 5.0 g/dL LAB CHEMISTRY METHOD 11/04/2024 2:57 PM EDT [facility] Calcium 9.1 8.5 - 10.5 mg/dL LAB CHEMISTRY METHOD 11/04/2024 2:57 PM EDT [facility] Phosphorus 3.6 2.5 - 4.5 mg/dL LAB CHEMISTRY METHOD 11/04/2024 2:57 PM EDT [facility] Blood Venous blood specimen / Unknown Venipuncture / Unknown 11/04/2024 8:53 AM EDT 11/04/2024 10:45 AM EDT Chinmay Saenz MD LAB BLOOD ORDERABLES Final Re sult Performing Organization Address [facility]/ZIP Co de Phone Number [facility] [address] [place] [address], [place] [phone] * (ABNORMAL) Hemoglobin A1c (10/20/2024 6:50 AM EDT) Hemoglobin A1C 8.6(H) <6.5 % LAB CHEMISTRY METHOD 10/20/2024 12:42 PM EDT [facility] Mean Bld Glu Estim. 200 mg/dL LAB CHEMISTRY METHOD 10/20/2024 12:42 PM EDT [facility] Blood Venous blood specimen / Unknown 10/20/2024 6:50 AM EDT 10/20/2024 7:17 AM EDT us Aleksander Welch MD LAB BLOOD ORDERABLES Final Resul t Performing Organization Address [facility]/ZIP Co de Phone Number [facility] [address] [place] [address], [place] [phone] * Lipid panel with reflex to direct LDL (09/24/2024 7:05 AM EDT) Cholesterol 167 0 - 200 mg/dL LAB CHEMISTRY METHOD 09/24/2024 9:26 AM EDT [facility] Triglycerides 111 0 - 150 mg/dL LAB CHEMISTRY METHOD 09/24/2024 9:26 AM EDT [facility] HDL 62 >=40 mg/dL LAB CHEMISTRY METHOD 09/24/2024 9:26 AM EDT [facility] LDL Calculated 83 0 - 100 mg/dL LAB CHEMISTRY METHOD 09/24/2024 9:26 AM EDT [facility] VLDL Cholesterol Tim 22.2 mg/dL LAB CHEMISTRY METHOD 09/24/2024 9:26 AM EDT [facility] Non HDL Chol. (LDL+VLDL) 105 <145 mg/dL LAB CHEMISTRY METHOD 09/24/2024 9:26 AM EDT [facility] Chol/HDL Ratio 2.7 0.0 - 4.4 LAB CHEMISTRY METHOD 09/24/2024 9:26 AM EDT [facility] Blood Venous blood specimen / Unknown 09/24/2024 7:05 AM EDT 09/24/2024 8:39 AM EDT us Aleksander Welch MD LAB BLOOD ORDERABLES Final Resul t [facility] [address] [place] [address], * HIV 1,2 antibody, p24 antigen with reflex to differentiation (09/12/2024 6:59 AM EDT) HIV Combo AB/AG Negative Negative LAB CHEMISTRY METHOD 09/12/2024 12:02 PM EDT [facility] Blood Venous blood specimen / Unknown 09/12/2024 6:59 AM EDT 09/12/2024 8:57 AM EDT Narrative [facility] - 09/12/2024 12:02 PM EDT This assay is a 4th generation assay allowing for earlier detection of HIV infection by detecting the presence of the HIV-1 p24 antigen as well as the traditional antibodies to HIV type 1 (including group O) and type 2. Use of a 4th generation assay is the current CDC recommendation for HIV screening. us Aleksander Welch MD LAB BLOOD ORDERABLES Final Resul t [facility] [address] [place] [address], [place] [phone] from Last 3 Months or Most Recently Relevant to Health Maintenance Insurance [place]ICA[place] Care Teams Flight Crew Time Clerk Relationship Specialty Start Date End Date Aleksander Welch MD [address] [place] [address] Dr [address] [place], [place] PCP - General Internal Medicine 07/11/24
--- OUTSIDE RECORDS SUMMARY | 2025-01-09 11:59 | XMS_ITS | Encounter Summary ---
Author Organization [facility] Address [address] [place] [address] Care Team Providers Care Customer Solutions Supervisor Name Role Phone Marcus Hudson MD Primary Care Provider [phone] Azalea Ann PA-C Primary Care Provider [phone] Encounter Details Date Type Department Care Team (Late st Contact Info) Description 11/22/2020 Lab Requisition [facility] Pathology & Laboratory Medicine - [facility] [address], [place] [id number] Outr Resulting Lab, Provider Social History Tobacco Use Types Packs/Day Years [...] Procedure Name Priority Date/Time Associated Diagnosis Comments HEMOGLOBIN A1C Routine 11/22/2020 15:45 EDT documented in this encounter Results * (ABNORMAL) HEMOGLOBIN A1C (11/22/2020 15:45 EDT) Hemoglobin A1c 8.7(H) <5.7 % 11/22/2020 22:40 EDT [facility] Comment: New methodology in use 07/22/2020 Glycemic Status References: Normal: <5.7% Pre-Diabetes: 5.7% - 6.4% Diagnostic of Diabetes: > or = 6.5% (if confirmed) Goals for glycemic control in diabetics (ADA 2017): <7.0% target for non adults with diabetes. <7.5% target for children and adolescents with Type I Diabetes. More or less stringent targets may be appropriate for individual patients. Est Avg Glucose 203 mg/dL 22:40 EDT [facility] Comment:The eAG represents t he A1c result expressed as average glucose in mg/dL. Blood VENOUS BLOOD / Unknown 11/22/2020 15:45 EDT 11/22/2020 21:32 EDT us Provider Outr Resulting Lab CHEMISTRY & BLOOD GA S ORDERABLES Final Result Performing Organization Address City/[facility] Co de Phone Number [facility] [address] [place] [address] documented in this encounter Visit Diagnoses Not on filedocumented in this encounter Care Teams Customer Solutions Supervisor Relationship Specialty Start Date End Date Marcus Hudson MD [address] [place] [id number] PCP - General 05/19/09 09/20/21 Azalea Ann PA-C [address] [place] [address] PCP - General 09/21/21 documented as of this encounter
--- OUTSIDE RECORDS SUMMARY | 2025-01-09 11:59 | XMS_ITS | Encounter Summary ---
Author Organization [facility] Address [address] [place] [address] Care Team Providers Care Aquaculture Program Director Name Role Phone Azalea Ann PA-C Primary Care Provider [phone] Encounter Details Date Type Department Care Team (Late st Contact Info) Description 10/29/2023 Lab Requisition [facility] Pathology & Laboratory Medicine - [facility] [address], [place] [id number] Outr Resulting Lab, Provider Social History Tobacco [...] Procedure Name Priority Date/Time Associated Diagnosis Comments LYME ANTIBODY CONFIRMATION Today 10/28/2023 14:15 EDT ANAPLASMA AND BABESIA TESTING BY PCR Routine 10/28/2023 14:15 EDT LYME AB Routine 10/28/2023 14:15 EDT TSH Routine 10/28/2023 14:15 EDT documented in this encounter Results * (ABNORMAL) LYME ANTIBODY CONFIRMATION (10/28/2023 14:15 EDT) Lyme IgG Antibody Positive(A) Negative 2023 11:35 EDT [facility] Comment:Specific anti-Borrel ia burgdorfei IgG antibodies are detected. Lyme IgM Antibody Negative Negative 024 11:35 EDT [facility] Comment:Specific anti-Borrel ia burgdorfei IgM antibodies are not detected. This does not exclude the possibility of B. burgdorferi infection. If exposure to B. burgdorferi is suspected, a second sample should be collected and tested 2-4 weeks later. Lyme Antibody Confirmation Interpretation See Comment 10/30/2023 11:35 EDT [facility] Comment:Indicative of B. bur gdorferi infection at some time in the past. Blood VENOUS BLOOD / Unknown 10/28/2023 14:15 EDT 10/29/2023 20:45 EDT us Provider Outr Resulting Lab IMMUNOLOGY AND SEROL OGY ORDERABLES Final Result [facility] [address] [place] [id number] * ANAPLASMA AND BABESIA TESTING BY PCR (10/28/2023 14:15 EDT) Anaplasma phagocytophilum Negative Negative 10/30/2023 16:21 EDT [facility] Babesia Species Negative Negative 16:21 EDT [facility] Blood VENOUS BLOOD / Unknown 10/28/2023 14:15 EDT 10/29/2023 20:45 EDT Narrative [facility] - 10/30/2023 16:21 EDT This test was developed and its performance characteristics determined by [facility]. It has not been cleared or approved by the US Food and Drug Administration. FDA does not require this test to go through premarket FDA review. This test is used for clinical purposes. It should not be regarded as investigational or research. This laboratory is certified under the Clinical Laboratory Improvement Amendments (CLIA) as qualified to perform high complexity clinical laboratory testing. us Provider Outr Resulting Lab CHEMISTRY & BLOOD GA S ORDERABLES Final Result [facility] [address], [place] [id number] * (ABNORMAL) LYME AB (10/28/2023 14:15 EDT) Pathologist [facility] Lyme Ab Positive( A) Negative 10/30/2023 10:00 EDT [facility] Comment: Lyme confirmation added by reflex. The [employer] Lyme Liaison Lyme Total Antibody Plus assay contains antigens from Borrelia burgdorferi, Borrelia garinii, and Borelia afzelli. Results from the second-step confirmation tests that detect only B. burgdorferi specific antigens should be interpreted with caution. Blood VENOUS BLOOD / Unknown 10/28/2023 14:15 EDT 10/29/2023 20:45 EDT Provider Outr Resulting Lab IMMUNOLOGY AND SEROL OGY ORDERABLES Final Result Performing Organization Address [facility] de Phone Number [facility] [address] [place] [address] * TSH (10/28/2023 14:15 EDT) Pathologist [facility] TSH 1.62 0.47 - 4.68 mIU/L 10/29/2023 21:36 EDT [facility] Blood VENOUS BLOOD / Unknown 10/28/2023 14:15 EDT 10/29/2023 20:45 EDT Narrative [facility] - 10/29/2023 21:36 EDT The results of this assay can be falsely lowered due to the consumption of Biotin. us Provider Outr Resulting Lab CHEMISTRY & BLOOD GA S ORDERABLES Final Result Performing Organization Address [facility] de Phone Number [facility] [address], [place] [phone] documented in this encounter Visit Diagnoses Not on filedocumented in this encounter Care Teams Aquaculture Program Director Relationship Specialty Start Date End Date Azalea Ann PA-C [address] [place] [address] PCP - General 09/21/21 documented as of this encounter
--- OUTSIDE RECORDS SUMMARY | 2025-01-09 11:59 | XMS_ITS | Clinical Summary ---
Author Organization [facility] Address [address] [place] [address] Care Team Providers Care Cafeteria Or Lunchroom Checker Name Role Phone Azalea Ann PA-C Primary Care Provider Social History Tobacco Use Types Packs/Day Years Used Date Smoking Tobacco: Never Assessed Sex and Gender Information Value Date Recorded Sex Assigned at Not on file Legal Sex Male 18:42 EST Gender Identity Not on file Sexual Orientation Not on file Plan of Treatment Health Maintenance Due Date Last Done Comments Hepatitis B Vaccine (1 of - + 3-dose series) 09/04/1986 COVID-19 Vaccine (2023-2 5 season) 2024 Hepatitis C Screen Completed 08/07/2022, 1 05/02/2021, 05/11/2020, Additional history exists Procedures Procedure Name Priority Date/Time Associated Diagnosis Comments HCV RNA DETECT QUANT Routine 08/07/2022 15:01 EDT from Last 3 Months or Most Recently Relevant to Health Maintenance Results * HCV RNA DETECT QUANT (08/07/2022 15:01 EDT) HCV RNA Qualitative Undetected Undetected 08/09/2022 12:03 EDT [facility] Blood VENOUS BLOOD / Unknown 08/07/2022 15:01 EDT 08/07/2022 21:55 EDT Narrative [facility] - 08/09/2022 12:03 EDT The quantification range of this assay is 15 IU/mL to 100,000,000 IU/mL. Testing was performed using the Joanna HCV test ([employer] with the joanna [id number] System. us Provider Outr Resulting Lab CHEMISTRY & BLOOD GA S ORDERABLES Final Result [facility] [address] [place] [address] from Last 3 Months or Most Recently Relevant to Health Maintenance Insurance [place]ICAID [place] Care Teams Cafeteria Or Lunchroom Checker Relationship Specialty Start Date End Date Azalea Ann PA-C [address] [place] [address] PCP - General 09/21/21
--- OUTSIDE RECORDS SUMMARY | 2025-01-09 11:59 | XMS_ITS | Encounter Summary ---
Author Organization [facility] Address [address] [place] [address] Care Team Providers Care Group Social Worker Name Role Phone Marcus Hudson MD Primary Care Provider [phone] Azalea Ann PA-C Primary Care Provider [phone] Encounter Details Date Type Department Care Team (Late st Contact Info) Description 08/12/2019 Lab Requisition [facility] Pathology & Laboratory Medicine - [facility] [address] [place] [address] Unknown, Provider, Social History Tobacco Use Types [...] Name Priority Date/Time Associated Diagnosis Comments URINE [id number] NE RATIO (ACR) Routine 08/12/2019 13:32 EDT documented in this encounter Results * (ABNORMAL) ALBUMIN, URINE (08/12/2019 13:32 EDT) Albumin, Urine 22.2 See Note mg/dL 2019 22:09 EDT [facility] Comment: NOTE: Reference range not established Creatinine, Urine 28.9 See Note mg/dL 08/12/2019 22:09 EDT [facility] Comment: NOTE: Reference range not established Lab Urine Albumin to Creatinine Ratio 768(H) <30 ug/mg Creatinine 08/12/2019 22:09 EDT [facility] Comment: Urine Albumin/Creatinine Ratio: Normal: <30 ug/mg Creatinine Moderately increased albuminuria: 30-300 ug/mg Creatinine Althea increased albuminuria: >300 ug/mg Creatinine Urine URINE SPECIMEN OBTAINED BY CLEAN CATCH PROCEDURE / Unknown 08/12/2019 13:32 EDT 08/12/2019 21:30 EDT us Provider Unknown CHEMISTRY & BLOOD GAS ORDERA BLES Final Result [facility] [address] [place] [address] documented in this encounter Visit Diagnoses Not on filedocumented in this encounter Care Teams Group Social Worker Relationship Specialty Start Date End Date Marcus Hudson MD [address] [place] [id number] PCP - General 05/19/09 09/20/21 Azalea Ann PA-C [address] [place] [address] PCP - General 09/21/21 documented as of this encounter
--- OUTSIDE RECORDS SUMMARY | 2025-01-09 11:59 | XMS_ITS | Encounter Summary ---
Author Organization [facility] Address [address] [place] [address] Care Team Providers Care Mixer Operator Name Role Phone Aleksander Welch MD Primary Care Provider [phone] Encounter Details Date Type Department Care Team (Late st Contact Info) Description 07/11/2024 Lab Requisition [facility] - Main Lab [address] [facility] [place] [address] Aleksander Welch MD [address] [place] [address] [address] [place] Type 1 diabetes mellitus with diabetic polyneuropathy (CMS/HCC V24, CMS/HCC V28) Social History Tobacco Use Types Packs/Day Years [...] Procedure Name Priority Date/Time Associated Diagnosis Comments COMPLETE BLOOD COUNT Routine 07/11/2024 7:09 AM EDT Type 1 diabetes mellitus with diabetic polyneuropathy ([facility]/HCC) HEMOGLOBIN A1C Routine 07/11/2024 7:09 AM EDT Type 1 diabetes mellitus with diabetic polyneuropathy ([facility]) documented in this encounter Results * (ABNORMAL) Hemoglobin A1c (07/11/2024 7:09 AM EDT) Hemoglobin A1C 7.4(H) <6.5 % LAB CHEMISTRY METHOD 07/11/2024 8:54 AM EDT [facility] Mean Bld Glu Estim. 166 mg/dL LAB CHEMISTRY METHOD 07/11/2024 8:54 AM T [facility] Blood Venous blood specimen / Unknown 07/11/2024 7:09 AM EDT 07/11/2024 7:44 AM EDT us Aleksander Welch MD LAB BLOOD ORDERABLES Final Resul t [facility] [address] [place] [address], [place] [phone] * (ABNORMAL) Complete blood count (07/11/2024 7:09 AM EDT) [facility] WBC 5.6 4.8 - 10.8 K/mcL LAB HEMETOLOGY METHOD 07/11/2024 8:02 AM EDT [facility] RBC 3.80(L) 4.50 - 5.50 M/mcL LAB [facility] Hem[facility] 11.1(L) 13.5 - 17.5 g/dL LAB HEMETOLOGY METHOD 07/11/2024 8:02 AM [facility] Hematocrit 33.9(L) 42.0 - 54.0 % LAB HEMETOLOGY METHOD 07/11/2024 8:02 AM [facility] MCV 90.2 79.0 - 98.0 FL LAB [facility]OLOGY [facility]24 [facility] MCH 29.5 27.0 - 32.0 pcg LAB HEMETOLOGY METHOD 07/11/2024 8:02 AM [facility] MCHC 32.7 32.0 - 37.0 g/dL LAB HEMETOLOGY METHOD 07/11/2024 8:02 AM [facility] RDW 13.4 11.0 - 15.0 % LAB HEMETOLOGY METHOD 07/11/2024 8:02 AM [facility] Platelets 231 130 - 400 K/mcL LAB HEMETOLOGY METHOD 07/11/2024 8:02 AM EDT [facility] MPV 10.2 7.0 - 11.0 FL LAB HEMETOLOGY METHOD 07/11/2024 8:02 AM EDT [facility] NRBC 0.0 <1.0 % LAB HEMETOLOGY METHOD 07/11/2024 8:02 AM EDT [facility] NRBC Absolute 0.00 <0.10 K/mcL LAB HEMETOLOGY METHOD 07/11/2024 8:02 AM EDT [facility] Blood Venous blood specimen / Unknown 07/11/2024 7:09 AM EDT 07/11/2024 7:44 AM EDT us Aleksander Welch MD LAB BLOOD ORDERABLES Final Resul t [facility] [address] [place] [address], documented in this encounter Visit Diagnoses Diagnosis Type 1 diabetes mellitus with diabetic polyneuropathy (CMS/HCC V24, CMS/HCC V28) documented in this encounter Care Teams Mixer Operator Relationship Specialty Start Date End Date Aleksander Welch MD [address] [place] [address] Dr [address] [place], [place] PCP - General Internal Medicine 07/11/24 documented as of this encounter
--- OUTSIDE RECORDS SUMMARY | 2025-01-09 11:59 | XMS_ITS | Clinical Summary ---
Author Organization [facility] Address [address] [address] Phone Care Team Providers Care Stem Sizer Name Role Phone Unavailable Primary Care Provider [...] Active Problems Problem Noted Date Diagnosed Date Chronic kidney disease, stage 2 (mild) Type 2 diabetes mellitus wit h diabetic chronic kidney disease 01/02/2025 Hypertension 10/09/2024 Hemiplegia and hemiparesis f ollowing [...] Encounters Date Type Department Care Team Description 01/02/2025 10:00 AM EDT Office Visit [facility] [address] [address] Chinmay Saenz MD Chronic kidney disease, stage 2 (mild) (Primary Dx); Type 2 diabetes mellitus with diabetic chronic kidney disease (HCC) 11/04/2024 Orders Only [facility]. [address] [address] Chinmay Saenz MD 10/09/2024 11:00 AM EDT Office Visit [facility] [address] [address] Dina Hicks ARNP Stage 3a chronic kidney disease (HCC) (Primary Dx); Hypertension 10/09/2024 Office Communication [facility] [address] [address] Dina Hicks ARNP from Last 3 Months Family History Relation Status Comments Father Mother Social History Tobacco Use Types Packs/Day Years [...] Sign Reading Time Taken Comments Blood Pressure 111/58 01/02/2025 10:13 AM EDT Pulse 66 01/02/2025 10:13 AM EDT Temperature - - Respiratory Rate - - Oxygen Saturation 98% 01/02/2025 10:13 AM EDT Inhaled Oxygen Concentration - - Weight 91 kg (200 lb 9.6 oz) 01/02/2025 10:13 AM EDT Height - - Body Mass Index - - Plan of Treatment Upcoming Encounters Date Type Department Care Team (Late st Contact Info) Description 12/31/2025 10:30 AM EDT Office Visit [facility] [address] [address] Dina Hicks ARNP [address] [address] Health Maintenance Due Date Last Done Comments [...] Procedure Name Priority Date/Time Associated Diagnosis Comments ALT EXT LABS Routine 01/02/2025 PROTEIN ELECTROPHORESIS INTERPRETATION, SERUM (HC) Routine 11/04/2024 [...] osteodystrophy from Last 3 Months Results * (ABNORMAL) ALT EXT LABS (01/02/2025) WBC 8.9 3.3 - 10.0 10*3/ML Red Blood Cell Count 4.5 Hemoglobin 13.3(A) 13.5 - 17.5 Hematocrit 40.3(A) 41.0 - 53.0 Platelets 328 150 - 399 10*3/UL MCV 90.6 82.0 - 108.0 BUN 19 4 - 21 mg/dL Creatinine 1.05 0.60 - 1.30 mg/dL Albumin 3.9 3.5 - 5.0 g/dL Calcium 9.1 8.7 - 10.7 mg/dL Phosphorus, Serum 3.6 Sodium 143 137 - 147 Potassium 3.5 3.4 - 5.5 Chloride 110.0(A) 99.0 - 108.0 Bicarbonate (CO2) 27 22 - 30 mmol/L eGFR Non-Afr Sudanese 83 01/02/2025 Noam Provider LAB BLOOD ORDERABLES Kena l Result * AST, ALT, BILIRUBIN (11/04/2024 8:53 AM EDT) Platelets 328 K/mcL [facility] 11/04/2024 8:53 AM EDT 11/04/2024 10:45 AM EDT Chinmay Saenz MD LAB BLOOD ORDERABLES Final Re sult Performing Organization Address City/[facility]/ZIP Co de Phone Number [facility] [address] [place] [address] * (ABNORMAL) Hep C Antibody (11/04/2024 8:53 AM EDT) Hep C Ab Positive( A) Negative [facility] Comment:If confirmation of t his positive HCV Ab screening test is needed, please redraw and order HCV Viral Load. Note--> This test may not be added on due to different specimen requirements. 11/04/2024 8:53 AM EDT 11/04/2024 10:45 AM EDT Result [facility] Chinmay Saenz MD LAB BLOOD ORDERABLES Final Re sult Performing Organization Address City/[facility]/ZIP Co de Phone Number [facility] [address] [place] [address] * (ABNORMAL) Hepatitis B Surface AB (11/04/2024 8:53 AM EDT) Hep B Surface Antibody Positive( A) Negative [facility] Hep B Surface Ab >1000.0 mIU/mL [facility] 11/04/2024 8:53 AM EDT 11/04/2024 10:45 AM EDT Narrative [facility] 11/04/2024 1:35 PM EDT >=10 mIU/mL is considered to be consistent with immunity. Chinmay Saenz MD LAB [id number] SOLICITED RESULTS Final Result Performing Organization Address [facility] Co de Phone Number [facility] [address] [place] [address] * Protein Electrophoresis Interpretation, Serum (11/04/2024 8:53 AM EDT) Pathologist [facility] Pathologist Interpretation [facility] 11/04/2024 8:53 AM EDT 11/04/2024 10:45 AM EDT Chinmay Saenz MD LAB [id number] SOLICITED RESULTS Final Result Performing Organization Address [facility] de Phone Number [facility] [address] [place] [address] * (ABNORMAL) Free Davy Lambda Light Chain, QN (11/04/2024 8:53 AM EDT) Pathologist [facility] Free Davy Lt Chains, S 2.81(H) 0.33 - 1.94 mg/dL [facility] Free Lambda Lt Chains, S 1.82 0.57 - 2.63 mg/dL [facility] Davy/Lambda LC Ratio 1.54 0.26 - 1.65 [facility] Comment: Test performed at [facility], [address], [place] [address] Nancy Frazier MD, PhD - [employer] 11/04/2024 8:53 AM EDT 11/04/2024 11:14 AM EDT Chinmay Saenz MD LAB BLOOD ORDERABLES Final Re sult Performing Organization Address [facility] Co de Phone Number [facility] [address] [place] [address] * Hepatitis B Surface Ag w/Reflex Confirmation (11/04/2024 8:53 AM EDT) Hep B Surface Ag Negative Negative [facility] 11/04/2024 8:53 AM EDT 11/04/2024 10:45 AM EDT Narrative [place] - 11/04/2024 1:45 PM EDT Over the counter supplements containing high doses of biotin may interfere with this assay. If interference is suspected, patients shoud be retested after refraining from biotin supplements for 72 hours. us Chinmay Saenz MD LAB BLOOD ORDERABLES Final Re sult Performing Organization Address [facility]/ZIP Co de Phone Number [facility] [address] [place] [address] * RACHELL IFA Screen s/Reflex to Titer and Pattern (11/04/2024 8:53 AM EDT) RACHELL Negative Negative [facility] 11/04/2024 8:53 AM EDT 11/04/2024 10:45 AM EDT us Chinmay Saenz MD LAB BLOOD ORDERABLES Final Re sult Performing Organization Address [facility] Co de Phone Number [facility] [address] [place] [address] * Hepatitis B core antibody, IgM (11/04/2024 8:53 AM EDT) Hep B Core IgM Negative Negative [facility] Blood specimen (specimen) Venous blood / Unknown 11/04/2024 8:53 AM EDT 11/04/2024 10:45 AM EDT Narrative [place] - 11/04/2024 2:13 PM EDT Over the counter supplements containing high doses of biotin may interfere with this assay. If interference is suspected, patients shoud be retested after refraining from biotin supplements for 72 hours. Chinmay Saenz MD LAB BLOOD ORDERABLES Final Re sult Performing Organization Address City/[facility]/ZIP Co de Phone Number [facility] [address] [place] [address] * (ABNORMAL) Vitamin D 25 Hydroxy (11/04/2024 8:53 AM EDT) Pathologist [facility] Vitamin D, 25-OH, Total 22.3(L) 30.0 - 80.0 ng/mL [facility] Blood specimen (specimen) Venous blood / Unknown 11/04/2024 8:53 AM EDT 11/04/2024 10:45 AM EDT Chinmay Saenz MD LAB BLOOD ORDERABLES Final Re sult Performing Organization Address [facility] Co de Phone Number [facility] [address] [place] [address] * (ABNORMAL) CBC (11/04/2024 8:53 AM EDT) [facility] WBC 8.9 4.8 - 10.8 K/[facility] RBC 4.50 4.50 - 5.50 M/[facility] Hgb 13.3(L) 13.5 - 17.5 g/dL [facility] Hematocrit 40.3(L) 42.0 - 54.0 % [facility] MCV 90.6 79.0 - 98.0 FL [facility] MCH 29.9 27.0 - 32.0 pcg [facility] MCHC 33.0 32.0 - 37.0 g/dL [facility] RDW 12.7 11.0 - 15.0 % [facility] Platelets 328 130 - 400 K/[facility] MPV 10.4 7.0 - 11.0 FL [facility] nRBC Count 0.0 <1.0 % [facility] NRBC Absolute 0.00 <0.10 K/mcL [facility] Blood specimen (specimen) Venous blood / Unknown 11/04/2024 8:53 AM EDT 11/04/2024 10:47 AM EDT Chinmay Saenz MD LAB BLOOD ORDERABLES Final Re sult Performing Organization Address City/[facility]/ZIP Co de Phone Number [facility] [address] [place] [address] * C3 Complement (11/04/2024 8:53 AM EDT) C3 Complement 137 88 - 201 mg/dL [facility] Blood specimen (specimen) Venous blood / Unknown 11/04/2024 8:53 AM EDT 11/04/2024 10:45 AM EDT Chinmay Saenz MD LAB BLOOD ORDERABLES Final Re sult Performing Organization Address [facility] Co de Phone Number [facility] [address] [place] [address] * C4 Complement (11/04/2024 8:53 AM EDT) C4 Complement 34 16 - 47 mg/dL [facility] Blood specimen (specimen) Venous blood / Unknown 11/04/2024 8:53 AM EDT 11/04/2024 10:45 AM EDT Chinmay Saenz MD LAB BLOOD ORDERABLES Final Re sult Performing Organization Address City/[facility] Co de Phone Number [facility] [address] [place] [address] * Protein electrophoresis, serum (11/04/2024 8:53 AM EDT) Total Protein 7.0 6.0 - 8.0 g/dL [facility] Albumin 3.5 2.9 - 4.1 g/dL [facility] Xkodf-4-Mhgfzxfh 0.2 0.1 - 0.5 g/dL [facility] Yhlji-6-Pbztcqeq 1.1 0.7 - 1.5 g/dL [facility] Beta Globulin 1.2 0.7 - 1.5 g/dL [facility] Gamma Globulin in Serum 1.0 0.7 - 1.9 g/dL [facility] SPEP Interpretation No M-Elan seen. Essentially normal pattern. [facility] Blood specimen (specimen) Venous blood / Unknown 11/04/2024 8:53 AM EDT 11/04/2024 10:45 AM EDT Chinmay Saenz MD LAB BLOOD ORDERABLES Final Re sult Performing Organization Address [facility]/ZIP Co de Phone Number [facility] [address] [place] [address] * Protein, total (11/04/2024 8:53 AM EDT) [facility] Total Protein 7.0 6.0 - 8.0 g/dL [facility] 11/04/2024 8:53 AM EDT 11/04/2024 10:45 AM EDT Chinmay Saenz MD LAB BLOOD ORDERABLES Final Re sult Performing Organization Address City/[facility]/ZIP Co de Phone Number [facility] [address] [place] [address] * PTH, Intact (11/04/2024 8:53 AM EDT) Pathologist [facility] PTH 28.1 18.5 - 88.0 pcg/mL [facility] Blood specimen (specimen) Venous blood / Unknown 11/04/2024 8:53 AM EDT 11/04/2024 10:45 AM EDT Chinmay Saenz MD LAB BLOOD ORDERABLES Final Re sult Performing Organization Address City/[facility]/ZIP Co de Phone Number [facility] [address] [place] [address] * Magnesium (11/04/2024 8:53 AM EDT) Pathologist [facility] Magnesium 1.9 1.9 - 2.6 mg/dL [facility] Blood specimen (specimen) Venous blood / Unknown 11/04/2024 8:53 AM EDT 11/04/2024 10:45 AM EDT Chinmay Saenz MD LAB BLOOD ORDERABLES Final Re sult Performing Organization Address City/[facility]/ZIP Co de Phone Number [facility] [address] [place] [address] * (ABNORMAL) Renal Function Panel (11/04/2024 8:53 AM EDT) Pathologist [facility] Sodium 143 133 - 145 mmol/L [facility] Potassium 3.5 3.5 - 5.5 mmol/L [facility] Chloride 110 96 - 110 mmol/L [facility] Bicarbonate (CO2) 27 21 - 32 mmol/L [facility] Anion Gap 6 3 - 11 [facility] Glucose 25(LL) 70 - 100 mg/dL [facility] BUN 19 5 - 25 mg/dL [facility] Creatinine Serum 1.05 0.70 - 1.30 mg/dL [facility] eGFR 83 >=60 mL/min/1. 73m2 [facility] Comment:Calculation based on the Chronic Kidney Disease Epidemiology Collaboration (CKD-EPI) equation refit without adjustment for race. BUN/Creatinine Ratio 18.1 [facility] Albumin 3.9 3.2 - 5.0 g/dL [facility] Calcium 9.1 8.5 - 10.5 mg/dL [facility] Phosphorus 3.6 2.5 - 4.5 mg/dL [facility] Blood specimen (specimen) Venous blood / Unknown 11/04/2024 8:53 AM EDT 11/04/2024 10:45 AM EDT us Chinmay Saenz MD LAB BLOOD ORDERABLES Final Re sult [facility] [facility] [address] [place] [address] from Last 3 Months Insurance [facility]
--- OUTSIDE RECORDS SUMMARY | 2025-01-09 11:59 | XMS_ITS | Encounter Summary ---
Author Organization [facility] Address [address] [place] [address] Care Team Providers Care Private Sector Executive Name Role Phone Azalea Ann PA-C Primary Care Provider Encounter Details Date Type Department Care Team (Late st Contact Info) Description 08/07/2022 Lab Requisition [facility] Pathology & Laboratory Medicine - [facility] [address], [place] [id number] Outr Resulting Lab, Provider Social History Tobacco [...] RNA DETECT QUANT Routine 08/07/2022 15:01 EDT PSA TOTAL, DIAGNOSTIC Routine 08/07/2022 15:01 EDT HEMOGLOBIN A1C Routine 08/07/2022 15:01 EDT documented in this encounter Results * HCV RNA DETECT QUANT (08/07/2022 15:01 EDT) HCV RNA Qualitative Undetected Undetected 08/09/2022 12:03 EDT [facility] Blood VENOUS BLOOD / Unknown 08/07/2022 15:01 EDT 08/07/2022 21:55 EDT Narrative [facility] - 08/09/2022 12:03 EDT The quantification range of this assay is 15 IU/mL to 100,000,000 IU/mL. Testing was performed using the Joanna HCV test ([facility] with the joanna [id number] System. us Provider Outr Resulting Lab CHEMISTRY & BLOOD GA S ORDERABLES Final Result Performing Organization Address [facility] de Phone Number [facility] [address] [place] [phone] * PSA TOTAL, DIAGNOSTIC (08/07/2022 15:01 EDT) PSA 0.2 <=3.5 ng/mL 08/07/2022 23:34 EDT [facility] Blood VENOUS BLOOD / Unknown 08/07/2022 15:01 EDT 08/07/2022 21:49 EDT Narrative [facility] - 08/07/2022 23:34 EDT NOTE: Serum PSA concentration should not be interpreted as absolute evidence for the presence or absence of malignant disease. Assayed on Siemens ADVIA Centaur XPT using chemiluminescent technology. Values obtained by using different assay methods cannot be used interchangeably. Provider Outr Resulting Lab CHEMISTRY & BLOOD GA S ORDERABLES Final Result Performing Organization Address [facility] de Phone Number [facility] [address] [place] [phone] * (ABNORMAL) HEMOGLOBIN A1C (08/07/2022 15:01 EDT) Hemoglobin A1c 7.1(H) <5.7 % 08/07/2022 23:53 EDT [facility] Comment: Glycemic Status References: Normal: <5.7% Pre-Diabetes: 5.7% - 6.4% Diagnostic of Diabetes: > or = 6.5% (if confirmed) Est Avg Glucose 157 mg/dL 23:53 EDT [facility] Comment:The eAG represents t he A1c result expressed as average glucose in mg/dL. Blood VENOUS BLOOD / Unknown 08/07/2022 15:01 EDT 08/07/2022 21:49 EDT us Provider Outr Resulting Lab CHEMISTRY & BLOOD GA S ORDERABLES Final Result Performing Organization Address City/State/[facility] Co de Phone Number [facility] [address] [place] [address] documented in this encounter Visit Diagnoses Not on filedocumented in this encounter Care Teams Private Sector Executive Relationship Specialty Start Date End Date Azalea Ann PA-C [address] [place] [address] PCP - General 09/21/21 documented as of this encounter
--- OUTSIDE RECORDS SUMMARY | 2025-01-09 11:59 | XMS_ITS | Encounter Summary ---
Author Organization [employer] Address [address] [place] [address] Care Team Providers Care Language Therapist Name Role Phone Aleksander Welch MD Primary Care Provider [phone] Encounter Details Date Type Department Care Team (Late st Contact Info) Description 09/12/2024 Lab Requisition [facility] - Main Lab [address] [facility] [address] Alma Coon MD [address] [place] [id number] Chronic viral hepatitis C (CMS/HCC V24, CMS/HCC V28) Social History Tobacco [...] Procedure Name Priority Date/Time Associated Diagnosis Comments HIV 1, 2 ANTIBODY, P24 ANTIGEN WITH [...] CMS/HCC V28) HEPATITIS A ANTIBODY IGM Routine 025 6:59 AM EDT Chronic viral hepatitis C [...] (CMS/HCC V24, CMS/HCC V28) ALANINE AMINOTRANSFERASE Routine 025 6:59 AM EDT Chronic viral hepatitis C (CMS/HCC V24, CMS/HCC V28) ASPARTATE AMINOTRANSFERASE Routine 09/12/2024 6:59 AM EDT Chronic viral hepatitis C (CMS/HCC V24, CMS/HCC V28) ALBUMIN Routine 09/12/2024 6:59 AM EDT Chronic viral hepatitis C (CMS/HCC V24, CMS/HCC V28) documented in this encounter Results * Prothrombin time with INR (09/12/2024 6:59 AM EDT) [facility] Protime 12.8 10.6 - 13.9 sec LAB COAGULATION METHOD 09/12/2024 5:19 PM EDT [facility] INR 1.0 LAB COAGULATION METHOD 09/12/2024 5:19 PM EDT [facility] Blood Venous blood specimen / Unknown 09/12/2024 6:59 AM EDT 09/12/2024 3:12 PM EDT Alma Coon MD LAB BLOOD ORDERABLES Kena l Result Performing Organization Address City/[facility]/ZIP Co de Phone Number [facility] [address] [place] [address], [place] [phone] * Treponema pallidum antibody with reflex to RPR and particle agglutination (09/12/2024 6:59 AM EDT) [facility] T. Pallidum Antibodies Negative Negative LAB CHEMISTRY METHOD 09/12/2024 10:38 PM EDT [facility] Blood Venous blood specimen / Unknown 09/12/2024 6:59 AM EDT 09/12/2024 9:01 AM EDT us Alma Coon MD LAB BLOOD ORDERABLES Kena l Result Performing Organization Address City/[facility]/ZIP Co de Phone Number [facility] [address] [place] [address], [place] [phone] * Hepatitis B surface antigen with reflex to confirmation (09/12/2024 6:59 AM EDT) Pathologist [facility] Hepatitis B Surface Ag Negative Negative LAB CHEMISTRY METHOD 09/12/2024 10:51 PM EDT [facility] Blood Venous blood specimen / Unknown 09/12/2024 6:59 AM EDT 09/12/2024 9:01 AM EDT Narrative [facility] - 09/12/2024 10:51 PM EDT Over the counter supplements containing high doses of biotin may interfere with this assay. If interference is suspected, patients shoud be retested after refraining from biotin supplements for 72 hours. us Alma Coon MD LAB BLOOD ORDERABLES Kena l Result Performing Organization Address [facility] Co de Phone Number [facility] [address] [place] [address], * HIV 1,2 antibody, p24 antigen with reflex to differentiation (09/12/2024 6:59 AM EDT) [facility] HIV Combo AB/AG Negative Negative LAB CHEMISTRY METHOD 09/12/2024 10:41 PM EDT [facility] Blood Venous blood specimen / Unknown 09/12/2024 6:59 AM EDT 09/12/2024 9:01 AM EDT Narrative [facility] - 09/12/2024 10:41 PM EDT This assay is a 4th generation assay allowing for earlier detection of HIV infection by detecting the presence of the HIV-1 p24 antigen as well as the traditional antibodies to HIV type 1 (including group O) and type 2. Use of a 4th generation assay is the current CDC recommendation for HIV screening. us Alma Coon MD LAB BLOOD ORDERABLES Kena l Result Performing Organization Address [facility]/ZIP Co de Phone Number [facility] [address] [place] [address], [place] [phone] * (ABNORMAL) Hepatitis B surface antibody (09/12/2024 6:59 AM EDT) [facility] Hepatitis B Surface Ab Positive (A) Negative LAB CHEMISTRY METHOD 09/12/2024 10:02 PM EDT [facility] Hepatitis B Surface Ab Quantitative >1,000.0 mIU/mL LAB CHEMISTRY METHOD 09/12/2024 10:02 PM EDT [facility] Blood Venous blood specimen / Unknown 09/12/2024 6:59 AM EDT 09/12/2024 9:01 AM EDT Narrative [facility] - 09/12/2024 10:02 PM EDT >=10 mIU/mL is considered to be consistent with immunity. Alma Coon MD LAB BLOOD ORDERABLES Kena l Result [facility] [address] [place] [address], [place] [phone] * Bilirubin, total and direct (09/12/2024 6:59 AM EDT) [facility] Total Bilirubin 0.3 0.0 - 1.4 mg/dL LAB CHEMISTRY METHOD 09/12/2024 9:37 PM EDT [facility] Bilirubin, Direct 0.1 0.0 - 0.3 mg/dL LAB CHEMISTRY METHOD 09/12/2024 9:37 PM EDT [facility] Bilirubin, Indirect 0.2 0.0 - 1.1 mg/dL LAB CHEMISTRY METHOD 09/12/2024 9:37 PM EDT [facility] Blood Venous blood specimen / Unknown 09/12/2024 6:59 AM EDT 09/12/2024 9:01 AM EDT Alma Coon MD LAB BLOOD ORDERABLES Kena l Result Performing Organization Address [facility]/ZIP Co de Phone Number [facility] [address] [place] [address], [place] [phone] * Albumin (09/12/2024 6:59 AM EDT) Albumin 3.7 3.2 - 5.0 g/dL LAB CHEMISTRY METHOD 09/12/2024 9:37 PM EDT [facility] Blood Venous blood specimen / Unknown 09/12/2024 6:59 AM EDT 09/12/2024 9:01 AM EDT Alma Coon MD LAB BLOOD ORDERABLES Kena l Result Performing Organization Address [facility] Co de Phone Number [facility] [address] [place] [address], * (ABNORMAL) Creatinine (09/12/2024 6:59 AM EDT) Creatinine 1.38(H) 0.70 - 1.30 mg/dL LAB CHEMISTRY METHOD 09/12/2024 9:37 PM EDT [facility] eGFR 60 >=60 mL/min/1. 73m2 LAB CHEMISTRY METHOD 09/12/2024 9:37 PM EDT [facility] Comment:Calculation based on the Chronic Kidney Disease Epidemiology Collaboration (CKD-EPI) equation refit without adjustment for race. Blood Venous blood specimen / Unknown 09/12/2024 6:59 AM EDT 09/12/2024 9:01 AM EDT us Alma Coon MD LAB BLOOD ORDERABLES Kena l Result Performing Organization Address [facility]/ZIP Co de Phone Number [facility] [address] [place] [address], [place] [phone] * Aspartate aminotransferase (09/12/2024 6:59 AM EDT) AST (SGOT) 23 10 - 42 unit/L LAB CHEMISTRY METHOD 09/12/2024 9:37 PM EDT [facility] Comment:Hemolysis present Blood Venous blood specimen / Unknown 09/12/2024 6:59 AM EDT 09/12/2024 9:01 AM EDT Alma Coon MD LAB BLOOD ORDERABLES Kena l Result Performing Organization Address City/[facility]/ZIP Co de Phone Number [facility] [address] [place] [address], [place] [phone] * Alanine aminotransferase (09/12/2024 6:59 AM EDT) Pathologist [facility] ALT (SGPT) 23 10 - 60 unit/L LAB CHEMISTRY METHOD 09/12/2024 9:37 PM EDT [facility] Blood Venous blood specimen / Unknown 09/12/2024 6:59 AM EDT 09/12/2024 9:01 AM EDT Alma Coon MD LAB BLOOD ORDERABLES Kena l Result [facility] [address] [place] [address], [place] [phone] * (ABNORMAL) CBC auto differential (09/12/2024 6:59 AM EDT) WBC 6.9 4.8 - 10.8 K/[facility] LAB HEMETOLOGY METHOD 09/12/2024 5:02 PM EDT [facility] RBC 4.20(L) 4.50 - 5.50 M/mcL LAB HEMETOLOGY METHOD 09/12/2024 5:02 PM EDT [facility] Hemoglobin 12.7(L) 13.5 - 17.5 g/dL LAB HEMETOLOGY METHOD 09/12/2024 5:02 [facility] Hematocrit 39.2(L) 42.0 - 54.0 % LAB HEMETOLOGY METHOD 09/12/2024 5:02 PM [facility] MCV 93.3 79.0 - 98.0 FL LAB HEMETOLOGY METHOD 09/12/2024 5:02 PM [facility] MCH 30.2 27.0 - 32.0 pcg LAB HEMETOLOGY METHOD 09/12/2024 5:02 PM [facility] MCHC 32.4 32.0 - 37.0 g/dL LAB HEMETOLOGY METHOD 09/12/2024 5:02 PM [facility] RDW 13.2 11.0 - 15.0 % LAB HEMETOLOGY METHOD 09/12/2024 5:02 PM [facility] Platelets 252 130 - 400 K/mcL LAB HEMETOLOGY METHOD 09/12/2024 5:02 PM [facility] MPV 11.4(H) 7.0 - 11.0 FL LAB HEMETOLOGY METHOD 09/12/2024 5:02 PM [facility] NRBC 0.0 <1.0 % LAB HEMETOLOGY METHOD 09/12/2024 5:02 PM [facility] NRBC Absolute 0.00 <0.10 K/mcL LAB HEMETOLOGY METHOD 09/12/2024 5:02 PM [facility] Neutrophils Relative 56.4 % LAB HEMETOLOGY METHOD 09/12/2024 5:02 PM [facility] Lymphocytes Relative 26.3 % LAB HEMETOLOGY METHOD 09/12/2024 5:02 PM [facility] Monocytes Relative 6.0 % LAB HEMETOLOGY METHOD 09/12/2024 5:02 PM [facility] Eosinophils Relative 9.8 % LAB HEMETOLOGY METHOD 09/12/2024 5:02 PM EDT [facility] Basophils Relative 1.2 % LAB HEMETOLOGY METHOD 09/12/2024 5:02 PM EDT [facility] Immature Granulocytes Relative 0.3 % LAB HEMETOLOGY METHOD 09/12/2024 5:02 PM EDT [facility] Neutrophils Absolute 3.88 1.50 - 7.00 K/mcL LAB HEMETOLOGY METHOD 09/12/2024 5:02 PM EDT [facility] Lymphocytes Absolute 1.81 1.00 - 5.00 K/mcL LAB HEMETOLOGY METHOD 09/12/2024 5:02 PM [facility] Monocytes Absolute 0.41 0.20 - 1.00 K/mcL LAB HEMETOLOGY METHOD 09/12/2024 5:02 PM EDT [facility] Eosinophils Absolute 0.67(H) 0.00 - 0.50 K/mcL LAB HEMETOLOGY METHOD 09/12/2024 5:02 PM EDT [facility] Basophils Absolute 0.08 0.00 - 0.20 K/mcL LAB HEMETOLOGY METHOD 09/12/2024 5:02 PM [facility] Immature Granulocytes Absolute 0.02 0.00 - 0.03 K/mcL LAB HEMETOLOGY METHOD 09/12/2024 5:02 PM EDT [facility] Blood Venous blood specimen / Unknown 09/12/2024 6:59 AM EDT 09/12/2024 9:01 AM EDT us Alma Coon MD LAB BLOOD ORDERABLES Kena lim Result [facility] [address] [place] [address], * Hepatitis A antibody IgM (09/12/2024 6:59 AM EDT) Hepatitis A Antibody IgM Negative Negative LAB CHEMISTRY METHOD 09/12/2024 1:55 PM EDT [facility] Blood Venous blood specimen / Unknown 09/12/2024 6:59 AM EDT 09/12/2024 9:01 AM EDT Narrative [facility] - 09/12/2024 1:55 PM EDT Over the counter supplements containing high doses of biotin may interfere with this assay. If interference is suspected, patients shoud be retested after refraining from biotin supplements for 72 hours. us Alma Coon MD LAB BLOOD ORDERABLES Kena l Result Performing Organization Address City/[facility]/ZIP Co de Phone Number [facility] [address] [place] [address], [place] [phone] * White - K2EDTA (09/12/2024 6:59 AM EDT) Pathologist [facility] Extra Tube Hold for add-ons. 09/12/2024 11:01 AM EDT [facility] Comment:Auto resulted. Blood Venous blood specimen / Unknown 09/12/2024 6:59 AM EDT 09/12/2024 9:01 AM EDT us Alma Coon MD LAB BLOOD ORDERABLES Kena l Result [facility] [address] [place] [address], [place] [phone] * Lavender tube (09/12/2024 6:59 AM EDT) Pathologist [facility] Extra Tube Hold for add-ons. 09/12/2024 11:01 AM EDT [facility] Comment:Auto resulted. Blood Venous blood specimen / Unknown 09/12/2024 6:59 AM EDT 09/12/2024 9:01 AM EDT us Alma Coon MD LAB BLOOD ORDERABLES Kena l Result Performing Organization Address [facility] Co de Phone Number [facility] [address] [place] [address], [place] [phone] * SST tube (09/12/2024 6:59 AM EDT) [facility] Extra Tube Hold for add-ons. 09/12/2024 11:01 AM EDT [facility] Comment:Auto resulted. Blood Venous blood specimen / Unknown 09/12/2024 6:59 AM EDT 09/12/2024 9:01 AM EDT us Alma Coon MD LAB BLOOD ORDERABLES Kena l Result Performing Organization Address [facility] de Phone Number [facility] [address] [place] [address], [place] [phone] * (ABNORMAL) Hepatitis A antibody total with reflex IgM (09/12/2024 6:59 AM EDT) [facility] Hep A Total Ab Positive( A) Negative LAB CHEMISTRY METHOD 09/12/2024 12:04 PM EDT [facility] Blood Venous blood specimen / Unknown 09/12/2024 6:59 AM EDT 09/12/2024 9:01 AM EDT Narrative [facility] - 09/12/2024 12:04 PM EDT Over the counter supplements containing high doses of biotin may interfere with this assay. If interference is suspected, patients shoud be retested after refraining from biotin supplements for 72 hours. us Alma Coon MD LAB BLOOD ORDERABLES Kena l Result Performing Organization Address [facility] Co de Phone Number [facility] [address] [place] [address], [place] [phone] documented in this encounter Visit Diagnoses Diagnosis Chronic viral hepatitis C (CMS/HCC V24, CMS/HCC V28) Chronic hepatitis C without mention of hepatic coma documented in this encounter Care Teams Language Therapist Relationship Specialty Start Date End Date Aleksander Welch MD [address] [place] [address] Dr [address] ARTURO Oseguera PCP - General Internal Medicine 07/11/24 documented as of this encounter
--- OUTSIDE RECORDS SUMMARY | 2025-01-09 11:59 | XMS_ITS | Encounter Summary ---
Author Organization [facility] Address [address] [place] [address] Care Team Providers Care Oil Speculator Name Role Phone Aleksander Welch MD Primary Care Provider [phone] Encounter Details Date Type Department Care Team (Late st Contact Info) Description 09/12/2024 Lab Requisition [facility] - Main Lab [address] [facility] [place] [address] Aleksander Welch MD [address] [place] [address] [address] [place] Chronic viral hepatitis C (CMS/HCC V24, CMS/HCC [...] V28) documented in this encounter Results * SST tube (09/12/2024 6:59 AM EDT) Extra Tube Hold for add-ons. 09/12/2024 10:01 AM EDT [facility] Comment:Auto resulted. Blood Venous blood specimen / Unknown 09/12/2024 6:59 AM EDT 09/12/2024 8:57 AM EDT us Aleksander Welch MD LAB BLOOD ORDERABLES Final Resul t Performing Organization Address City/[facility]/ZIP Co de Phone Number [facility] [address] [place] [address], [place] [phone] * SST tube (09/12/2024 6:59 AM EDT) Extra Tube Hold for add-ons. 09/12/2024 10:01 AM EDT [facility] Comment:Auto resulted. Blood Venous blood specimen / Unknown 09/12/2024 6:59 AM EDT 09/12/2024 8:57 AM EDT us Aleksander Welch MD LAB BLOOD ORDERABLES Final Resul t Performing Organization Address [facility]/ZIP Co de Phone Number [facility] [address] [place] [address], [place] [phone] * (ABNORMAL) CBC auto differential (09/12/2024 6:59 AM EDT) WBC 6.6 4.8 - 10.8 K/[facility] LAB HEMETOLOGY METHOD 09/12/2024 9:37 AM EDT [facility] RBC 4.10(L) 4.50 - 5.50 M/[facility] LAB HEMETOLOGY METHOD 09/12/2024 9:37 AM EDT [facility] Hemoglobin 12.4(L) 13.5 - 17.5 g/dL LAB HEMETOLOGY METHOD 09/12/2024 9:37 AM [facility] Hematocrit 37.1(L) 42.0 - 54.0 % LAB HEMETOLOGY METHOD 09/12/2024 9:37 AM [facility] MCV 91.6 79.0 - 98.0 FL LAB HEMETOLOGY METHOD 09/12/2024 9:37 AM [facility] MCH 30.6 27.0 - 32.0 pcg LAB HEMETOLOGY METHOD 09/12/2024 9:37 AM [facility] MCHC 33.4 32.0 - 37.0 g/dL LAB HEMETOLOGY METHOD 09/12/2024 9:37 AM [facility] RDW 13.0 11.0 - 15.0 % LAB HEMETOLOGY METHOD 09/12/2024 9:37 AM [facility] Platelets 182 130 - 400 K/mcL LAB HEMETOLOGY METHOD 09/12/2024 9:37 AM [facility] Comment:reviewed by slide MPV 11.5(H) 7.0 - 11.0 FL LAB HEMETOLOGY METHOD 09/12/2024 9:37 AM [facility] NRBC 0.0 <1.0 % LAB HEMETOLOGY METHOD 09/12/2024 9:37 AM [facility] NRBC Absolute 0.00 <0.10 K/mcL LAB HEMETOLOGY METHOD 09/12/2024 9:37 AM [facility] Neutrophils Relative 56.9 % LAB HEMETOLOGY METHOD 09/12/2024 9:37 AM [facility] Lymphocytes Relative 26.4 % LAB HEMETOLOGY METHOD 09/12/2024 9:37 AM [facility] Monocytes Relative 6.6 % LAB HEMETOLOGY METHOD 09/12/2024 9:37 AM [facility] Eosinophils Relative 8.7 % LAB HEMETOLOGY METHOD 09/12/2024 9:37 AM EDT [facility] Basophils Relative 1.1 % LAB HEMETOLOGY METHOD 09/12/2024 9:37 AM EDT [facility] Immature Granulocytes Relative 0.3 % LAB HEMETOLOGY METHOD 09/12/2024 9:37 AM EDT [facility] Neutrophils Absolute 3.73 1.50 - 7.00 K/mcL LAB HEMETOLOGY METHOD 09/12/2024 9:37 AM EDT [facility] Lymphocytes Absolute 1.73 1.00 - 5.00 K/mcL LAB HEMETOLOGY METHOD 09/12/2024 9:37 AM EDT [facility] Monocytes Absolute 0.43 0.20 - 1.00 K/mcL LAB HEMETOLOGY METHOD 09/12/2024 9:37 AM EDT [facility] Eosinophils Absolute 0.57(H) 0.00 - 0.50 K/mcL LAB HEMETOLOGY METHOD 09/12/2024 9:37 AM EDT [facility] Basophils Absolute 0.07 0.00 - 0.20 K/mcL LAB HEMETOLOGY METHOD 09/12/2024 9:[facility] Immature Granulocytes Absolute 0.02 0.00 - 0.03 K/mcL LAB HEMETOLOGY METHOD 09/12/2024 9:37 AM EDT [facility] Blood Venous blood specimen / Unknown 09/12/2024 6:59 AM EDT 09/12/2024 8:57 AM EDT us Aleksander Welch MD LAB BLOOD ORDERABLES Final Resul t [facility] [address] [place] [address], * HIV 1,2 antibody, p24 antigen with reflex to differentiation (09/12/2024 6:59 AM EDT) [facility] HIV Combo AB/AG Negative Negative LAB CHEMISTRY METHOD 09/12/2024 12:02 PM EDT [facility] Blood Venous blood specimen / Unknown 09/12/2024 6:59 AM EDT 09/12/2024 8:57 AM EDT Narrative [facility] - 09/12/2024 12:02 PM [...] ORDERABLES Final Resul t Performing Organization Address City/[facility]/ZIP Co de Phone Number [facility] [address] [place] [address], [place] [phone] * Hepatitis C virus quantitative molecular study (09/12/2024 6:59 AM EDT) [facility] HCV Qual Interp Not Detected Not Detected LAB MOLECULAR DIAGNOSTICS METHOD 09/14/2024 12:43 PM EDT [facility] Comment:HCV RNA not detected , unable to report quantitative results. Blood Venous blood specimen / Unknown 09/12/2024 6:59 AM EDT 09/12/2024 8:57 AM EDT us Aleksander Welch MD LAB BLOOD ORDERABLES Final Resul t [facility] [address] [place] [address], [place] [phone] * Treponema pallidum antibody with reflex to RPR and particle agglutination (09/12/2024 6:59 AM EDT) [facility] T. Pallidum Antibodies Negative Negative LAB CHEMISTRY METHOD 09/12/2024 11:34 AM EDT [facility] Blood Venous blood specimen / Unknown 09/12/2024 6:59 AM EDT 09/12/2024 8:57 AM EDT us Aleksander Welch MD LAB BLOOD ORDERABLES Final Resul t Performing Organization Address [facility]/ZIP Co de Phone Number [facility] [address] [place] [address], [place] [phone] * (ABNORMAL) Creatinine (09/12/2024 6:59 AM EDT) Creatinine 1.38(H) 0.70 - 1.30 mg/dL LAB CHEMISTRY METHOD 09/12/2024 9:40 AM EDT [facility] eGFR 60 >=60 mL/min/1. 73m2 LAB CHEMISTRY METHOD 09/12/2024 9:40 AM EDT [facility] Comment:Calculation based on the Chronic Kidney Disease Epidemiology Collaboration (CKD-EPI) equation refit without adjustment for race. Blood Venous blood specimen / Unknown 09/12/2024 6:59 AM EDT 09/12/2024 8:57 AM EDT us Aleksander Welch MD LAB BLOOD ORDERABLES Final Resul t Performing Organization Address [facility]/ZIP Co de Phone Number [facility] [address] [place] [address], [place] [phone] * Alanine aminotransferase (09/12/2024 6:59 AM EDT) ALT (SGPT) 21 10 - 60 unit/L LAB CHEMISTRY METHOD 09/12/2024 9:40 AM EDT [facility] Blood Venous blood specimen / Unknown 09/12/2024 6:59 AM EDT 09/12/2024 8:57 AM EDT us Aleksander Welch MD LAB BLOOD ORDERABLES Final Resul t Performing Organization Address [facility] Co de Phone Number [facility] [address] [place] [address], [place] [phone] * Aspartate aminotransferase (09/12/2024 6:59 AM EDT) Pathologist [facility] AST (SGOT) 11 10 - 42 unit/L LAB CHEMISTRY METHOD 09/12/2024 9:40 AM EDT [facility] Blood Venous blood specimen / Unknown 09/12/2024 6:59 AM EDT 09/12/2024 8:57 AM EDT us Aleksander Welch MD LAB BLOOD ORDERABLES Final Resul t Performing Organization Address [facility] de Phone Number [facility] [address] [place] [address], [place] [phone] * Prothrombin time with INR (09/12/2024 6:59 AM EDT) [facility] Protime 12.8 10.6 - 13.9 sec LAB COAGULATION METHOD 09/12/2024 9:24 AM EDT [facility] INR 1.0 LAB COAGULATION METHOD 09/12/2024 9:24 AM EDT [facility] Blood Venous blood specimen / Unknown 09/12/2024 6:59 AM EDT 09/12/2024 8:57 AM EDT us Aleksander Welch MD LAB BLOOD ORDERABLES Final Resul t Performing Organization Address [facility] Co de Phone Number [facility] [address] [place] [address], [place] [phone] * Hepatitis B surface antigen with reflex to confirmation (09/12/2024 6:59 AM EDT) [facility] Hepatitis B Surface Ag Negative Negative LAB CHEMISTRY METHOD 09/12/2024 11:35 AM EDT [facility] Blood Venous blood specimen / Unknown 09/12/2024 6:59 AM EDT 09/12/2024 8:57 AM EDT [facility] - 09/12/2024 11:35 AM EDT Over the counter supplements containing high doses of biotin may interfere with this assay. If interference is suspected, patients shoud be retested after refraining from biotin supplements for 72 hours. us Aleksander Welch MD LAB BLOOD ORDERABLES Final Resul t Performing Organization Address [facility] de Phone Number [facility] [address] [place] [address], [place] [phone] * (ABNORMAL) Hepatitis B surface antibody (09/12/2024 6:59 AM EDT) Hepatitis B Surface Ab Positive (A) Negative LAB CHEMISTRY METHOD 09/12/2024 11:23 AM EDT [facility] Hepatitis B Surface Ab Quantitative >1,000.0 mIU/mL LAB CHEMISTRY METHOD 09/12/2024 11:23 AM EDT [facility] Blood Venous blood specimen / Unknown 09/12/2024 6:59 AM EDT 09/12/2024 8:57 AM EDT [facility] - 09/12/2024 11:23 AM EDT >=10 mIU/mL is considered to be consistent with immunity. us Aleksander Welch MD LAB BLOOD ORDERABLES Final Resul t Performing Organization Address [facility] de Phone Number [facility] [address] [place] [address], [place] [phone] * Bilirubin, total and direct (09/12/2024 6:59 AM EDT) Total Bilirubin 0.3 0.0 - 1.4 mg/dL LAB CHEMISTRY METHOD 09/12/2024 9:40 AM EDT [facility] Bilirubin, Direct 0.1 0.0 - 0.3 mg/dL LAB CHEMISTRY METHOD 09/12/2024 9:40 AM EDT [facility] Bilirubin, Indirect 0.2 0.0 - 1.1 mg/dL LAB CHEMISTRY METHOD 09/12/2024 9:40 AM EDT [facility] Blood Venous blood specimen / Unknown 09/12/2024 6:59 AM EDT 09/12/2024 8:57 AM EDT us Aleksander Welch MD LAB BLOOD ORDERABLES Final Resul t Performing Organization Address City/[facility]/ZIP Co de Phone Number [facility] [address] [place] [address], [place] [phone] * Albumin (09/12/2024 6:59 AM EDT) Albumin 3.7 3.2 - 5.0 g/dL LAB CHEMISTRY METHOD 09/12/2024 9:40 AM EDT [facility] Blood Venous blood specimen / Unknown 09/12/2024 6:59 AM EDT 09/12/2024 8:57 AM EDT us Aleksander Welch MD LAB BLOOD ORDERABLES Final Resul t Performing Organization Address [facility]/ZIP Co de Phone Number [facility] [address] [place] [address], [place] [phone] documented in this encounter Visit Diagnoses Diagnosis Chronic viral hepatitis C (CMS/HCC V24, CMS/HCC V28) Chronic hepatitis C without mention of hepatic coma documented in this encounter Care Teams Oil Speculator Relationship Specialty Start Date End Date Aleksander Welch MD [address] [place] [address] Dr Rajani Oseguera [place] PCP - General Internal Medicine 07/11/24 documented as of this encounter
--- OUTSIDE RECORDS SUMMARY | 2025-01-09 11:59 | XMS_ITS | Encounter Summary ---
Author Organization [facility] Address [address] [place] [address] Care Team Providers Care Performance Tester Name Role Phone Aleksander Welch MD Primary Care Provider [phone] Encounter Details Date Type Department Care Team (Late st Contact Info) Description 10/20/2024 Lab Requisition [facility] - Main Lab [address] [facility] [place] [address] Aleksander Welch MD [address] [place] [address] [address] [place] Type 1 diabetes mellitus with diabetic polyneuropathy (CMS/HCC V24, CMS/[facility] V28) Social History Tobacco Use Types Packs/Day [...] Date/Time Associated Diagnosis Comments HEMOGLOBIN A1C Routine 10/20/2024 6:50 AM EDT Type 1 diabetes mellitus with diabetic polyneuropathy (CMS/HCC V24, CMS/[facility] V28) documented in this encounter Results * (ABNORMAL) Hemoglobin A1c (10/20/2024 6:50 AM [...] MD LAB BLOOD ORDERABLES Final Resul t [facility] ([facility]) [facility] [address] [place] [address], documented in this encounter Visit Diagnoses Diagnosis Type 1 diabetes mellitus with diabetic polyneuropathy (CMS/HCC V24, CMS/HCC V28) documented in this encounter Care Teams Performance Tester Relationship Specialty Start Date End Date Aleksander Welch MD [address] [place] [address] Dr [address] [place], [place] PCP - General Internal Medicine 07/11/24 documented as of this encounter
--- OUTSIDE RECORDS SUMMARY | 2025-01-09 11:59 | XMS_ITS | Encounter Summary ---
Author Organization [facility] Address [address] [place] [address] Care Team Providers Care It Programmer Analyst Name Role Phone Aleksander Welch MD Primary Care Provider [phone] Encounter Details Date Type Department Care Team (Late st Contact Info) Description 06/25/2024 Lab Requisition [facility] - Main Lab [address] [place] [address] Aleksander Welch MD [address] [place] [address] [address] [place] Bipolar disorder, unspecified (CMS/HCC V24, CMS/[facility] V28) Social History Tobacco Use Types Packs/Day [...] Date/Time Associated Diagnosis Comments HEMOGLOBIN A1C Routine 06/25/2024 6:32 AM EST Bipolar disorder, unspecified ([facility]) documented in this encounter Results * (ABNORMAL) Hemoglobin A1c (06/25/2024 6:32 AM EST) Hemoglobin A1C 7.9(H) <6.5 % LAB CHEMISTRY METHOD 06/25/2024 11:00 AM EST [facility] Mean Bld Glu Estim. 180 mg/dL LAB CHEMISTRY METHOD 06/25/2024 11:00 AM EST [facility] Blood Venous blood specimen / Unknown 06/25/2024 6:32 AM EST 06/25/2024 7:49 AM EST us Aleksander Welch MD LAB BLOOD ORDERABLES Final Resul t [facility] [address] [place] [address], documented in this encounter Visit Diagnoses Diagnosis Bipolar disorder, unspecified (CMS/[facility] V24, CMS/HCC V28) Bipolar disorder, unspecified documented in this encounter Care Teams It Programmer Analyst Relationship Specialty Start Date End Date Aleksander Welch MD [address] [place] [address] Dr [address] [place], [place] PCP - General Internal Medicine 07/11/24 documented as of this encounter
--- OUTSIDE RECORDS SUMMARY | 2025-01-09 11:59 | XMS_ITS | Encounter Summary ---
Author Organization [facility] Address [address] [place] [address] Care Team Providers Care Hospital Pharmacy Technician Name Role Phone Marcus Hudson MD Primary Care Provider [phone] Azalea Ann PA-C Primary Care Provider [phone] Encounter Details Date Type Department Care Team (Late st Contact Info) Description 08/16/2021 Lab Requisition [facility] Pathology & Laboratory Medicine - [facility] [address] [place], [place] [id number] Outr Resulting Lab, Provider Social History Tobacco [...] Date/Time Associated Diagnosis Comments HEMOGLOBIN A1C Routine 08/16/2021 12:39 EDT documented in this encounter Results * (ABNORMAL) HEMOGLOBIN A1C (08/16/2021 12:39 EDT) Hemoglobin A1c 7.4(H) <5.7 % 08/18/2021 20:01 EDT [facility] Comment: Glycemic Status References: Normal: <5.7% Pre-Diabetes: 5.7% - 6.4% Diagnostic of Diabetes: > or = 6.5% (if confirmed) Est Avg Glucose 166 mg/dL 2 20:01 EDT [facility] Comment:The eAG represents t he A1c result expressed as average glucose in mg/dL. Blood VENOUS BLOOD / Unknown 08/16/2021 12:39 EDT 08/16/2021 21:30 EDT us Provider Outr Resulting Lab CHEMISTRY & BLOOD GA S ORDERABLES Final Result [facility] [address] [place] [address] documented in this encounter Visit Diagnoses Not on filedocumented in this encounter Care Teams Hospital Pharmacy Technician Relationship Specialty Start Date End Date Marcus Hudson MD [address] [place] [address] PCP - General 05/19/09 09/20/21 Azalea Ann PA-C [address] [place] [address] PCP - General 09/21/21 documented as of this encounter
--- OUTSIDE RECORDS SUMMARY | 2025-01-09 11:59 | XMS_ITS | Encounter Summary ---
Author Organization [facility] Address [address] [place] [address] Care Team Providers Care Hhas Name Role Phone Marcus Hudson MD Primary Care Provider [phone] Azalea Ann PA-C Primary Care Provider [phone] Encounter Details Date Type Department Care Team (Late st Contact Info) Description 05/11/2020 Lab Requisition [facility] Pathology & Laboratory Medicine - [facility] [address] [place], [place] [address] Outr Resulting Lab, Provider Social History Tobacco [...] Associated Diagnosis Comments HCV RNA DETECT QUANT Today 05/11/2020 12:18 EST HEPATITIS C AB W REFLEX TO HCV RNA BY PCR Routine 05/11/2020 12:18 EST documented in this encounter Results * (ABNORMAL) HCV RNA DETECT QUANT (05/11/2020 12:18 EST) HCV RNA Qualitative Detected( A) Undetected 05/13/2020 14:48 EST [facility] HCV RNA Quantitative 1,580,573 (H) Undetected IU/mL 05/13/2020 14:48 EST [facility] Blood VENOUS BLOOD / Unknown 05/11/2020 12:18 EST 05/11/2020 21:45 EST Narrative [facility] - 05/13/2020 14:48 EST The quantification range of this assay is 15 IU/mL to 100,000,000 IU/mL. Testing was performed on the IVON Ampliprep/IVON TaqMan HCV v2.0 ([employer] us Provider Outr Resulting Lab CHEMISTRY & BLOOD GA S ORDERABLES Final Result Performing Organization Address [facility] Co de Phone Number [facility] [address] [place] [address] * (ABNORMAL) HEPATITIS C AB W REFLEX TO HCV RNA BY PCR (05/11/2020 12:18 EST) Hep C Antibody Reactive(A ) Negative 05/12/2020 11:30 EST [facility] Comment: Supplemental testing for HCV RNA is ordered to rule out active HCV infection. Blood VENOUS BLOOD / Unknown 05/11/2020 12:18 EST 05/11/2020 21:45 EST Provider Outr Resulting Lab CHEMISTRY & BLOOD GA S ORDERABLES Final Result Performing Organization Address [facility] Co de Phone Number [facility] [address] [place] [address] documented in this encounter Visit Diagnoses Not on filedocumented in this encounter Care Teams Hhas Relationship Specialty Start Date End Date Marcus Hudson MD [address] [place] [address] PCP - General 05/19/09 09/20/21 Azalea Ann PA-[place] [address] PCP - General 09/21/21 documented as of this encounter
--- OUTSIDE RECORDS SUMMARY | 2025-01-09 11:59 | XMS_ITS | Encounter Summary ---
Author Organization [facility] Address [address] [place] [address] Care Team Providers Care Tool And Die Inspector Name Role Phone Azalea Ann PA-C Primary Care Provider [phone] Encounter Details Date Type Department Care Team (Late st Contact Info) Description 03/02/2022 Lab Requisition [facility] Pathology & Laboratory Medicine - [facility] [address] [place], [place] [id number] Outr Resulting Lab, Provider Social History Tobacco [...] Diagnosis Comments HCV RNA DETECT QUANT Routine 03/02/2022 12:15 EST documented in this encounter Results * HCV RNA DETECT QUANT (03/02/2022 12:15 EST) HCV RNA Qualitative Undetected Undetected 03/03/2022 13:33 EST [facility] Blood VENOUS BLOOD / Unknown 03/02/2022 12:15 EST 03/02/2022 21:12 EST Narrative [facility] - 03/03/2022 13:33 EST The quantification range of this assay is 15 IU/mL to 100,000,000 IU/mL. Testing was performed using the Joanna HCV test ([employer] with the joanna [id number] System. us Provider Outr Resulting Lab CHEMISTRY & BLOOD GA S ORDERABLES Final Result [facility] [address] [place] [address] documented in this encounter Visit Diagnoses Not on filedocumented in this encounter Care Teams Tool And Die Inspector Relationship Specialty Start Date End Date Azalea Ann PA-C [address] [place] [address] PCP - General 09/21/21 documented as of this encounter
--- OUTSIDE RECORDS SUMMARY | 2025-01-09 11:59 | XMS_ITS | Encounter Summary ---
Author Organization [employer] Address [address] [place] [address] Care Team Providers Care Technician Preventative Medicine Name Role Phone Aleksander Welch MD Primary Care Provider [phone] Encounter Details Date Type Department Care Team (Late st Contact Info) Description 09/24/2024 Lab Requisition [facility] - Main Lab [address] [facility] [place] [address] Aleksander Welch MD [address] [place] [address] [address] [place], [place] Chronic kidney disease, stage 3a (CMS/HCC V24, CMS/HCC V28); Other hyperlipidemia; Anemia, unspecified; Benign prostatic hyperplasia with lower urinary tract symptoms; Encounter for other specified special examinations Social History Tobacco Use Types Packs/Day Years [...] Procedure Name Priority Date/Time Associated Diagnosis Comments LIPID PANEL WITH REFLEX TO DIRECT LDL [...] Encounter for other specified special examinations CBC WITH AUTO DIFFERENTIAL Routine 09/24/2024 7:05 [...] symptoms Encounter for other specified special examinations documented in this encounter Results * (ABNORMAL) CBC auto differential (09/24/2024 7:05 AM EDT) [facility] WBC 6.4 4.8 - 10.8 K/mcL LAB HEMETOLOGY METHOD 09/24/2024 9:[address] [facility] RBC 4.20(L) 4.50 - 5.50 M/mcL LAB HEMETOLOGY METHOD 09/24/2024 9:[address] [facility] Hemoglobin 12.9(L) 13.5 - 17.5 g/dL LAB HEMETOLOGY METHOD 09/24/2024 9:[address] [facility] Hematocrit 37.9(L) 42.0 - 54.0 % LAB HEMETOLOGY METHOD 09/24/2024 9:[address] [facility] MCV 89.8 79.0 - 98.0 FL LAB HEMETOLOGY METHOD 09/24/2024 9:[address] [facility] MCH 30.6 27.0 - 32.0 pcg LAB HEMETOLOGY METHOD 09/24/2024 9:[address] [facility] MCHC 34.0 32.0 - 37.0 g/dL LAB HEMETOLOGY METHOD 09/24/2024 9:[address] [facility] RDW 12.6 11.0 - 15.0 % LAB HEMETOLOGY METHOD 09/24/2024 9:[address] [facility] Platelets 254 130 - 400 K/mcL LAB HEMETOLOGY METHOD 09/24/2024 9:[address] [facility] MPV 11.0 7.0 - 11.0 FL LAB HEMETOLOGY METHOD 09/24/2024 9:[address] [facility] NRBC 0.0 <1.0 % LAB HEMETOLOGY METHOD 09/24/2024 9:[address] [facility] NRBC Absolute 0.00 <0.10 K/mcL LAB HEMETOLOGY METHOD 09/24/2024 9:[address] [facility] Neutrophils Relative 57.7 % LAB HEMETOLOGY METHOD 09/24/2024 9:[address] [facility] Lymphocytes Relative 26.7 % LAB HEMETOLOGY METHOD 09/24/2024 9:[address] [facility] Monocytes Relative 7.2 % LAB HEMETOLOGY METHOD 09/24/2024 9:[address] [facility] Eosinophils Relative 6.7 % LAB HEMETOLOGY METHOD 09/24/2024 9:[address] [facility] Basophils Relative 1.2 % LAB HEMETOLOGY METHOD 09/24/2024 9:[address] [facility] Immature Granulocytes Relative 0.5 % LAB HEMETOLOGY METHOD 09/24/2024 9:[address] [facility] Neutrophils Absolute 3.70 1.50 - 7.00 K/mcL LAB HEMETOLOGY METHOD 09/24/2024 9:08 AM EDT [facility] Lymphocytes Absolute 1.71 1.00 - 5.00 K/mcL LAB HEMETOLOGY METHOD 09/24/2024 9:08 AM EDT [facility] Monocytes Absolute 0.46 0.20 - 1.00 K/mcL LAB HEMETOLOGY METHOD 09/24/2024 9:08 AM EDT [facility] Eosinophils Absolute 0.43 0.00 - 0.50 K/mcL LAB HEMETOLOGY METHOD 09/24/2024 9:08 AM EDT [facility] Basophils Absolute 0.08 0.00 - 0.20 K/mcL LAB HEMETOLOGY METHOD 09/24/2024 9:08 AM EDT [facility] Immature Granulocytes Absolute 0.03 0.00 - 0.03 K/mcL LAB HEMETOLOGY METHOD 09/24/2024 9:08 AM EDT [facility] Blood Venous blood specimen / Unknown 09/24/2024 7:05 AM EDT 09/24/2024 8:39 AM EDT us Aleksander Welch MD LAB BLOOD ORDERABLES Final Resul t Performing Organization Address [facility]/ZIP Co de Phone Number [facility] [address] [place] [address], [place] [phone] * Thyroid stimulating hormone (09/24/2024 7:05 AM EDT) TSH 1.32 0.40 - 4.00 mcIU/mL LAB CHEMISTRY METHOD 09/24/2024 11:14 AM EDT [facility] Blood Venous blood specimen / Unknown 09/24/2024 7:05 AM EDT 09/24/2024 8:39 AM EDT us Aleksander Welch MD LAB BLOOD ORDERABLES Final Resul t [facility] [address] [place] [address], [place] [phone] * Prostate specific antigen diagnostic (09/24/2024 7:05 AM EDT) Pathologist [facility] PSA 0.09 0.00 - 4.00 ng/mL LAB CHEMISTRY METHOD 09/24/2024 10:51 AM EDT [facility] Blood Venous blood specimen / Unknown 09/24/2024 7:05 AM EDT 09/24/2024 8:39 AM EDT Narrative [facility] - 09/24/2024 10:51 AM EDT The Siemens [employer] Chemiluminescent Immunoassay is used. Results obtained with different assay methods or kits cannot be used interchangeably. Results cannot be interpreted as absolute evidence of the presence or absence of malignant disease. Aleksander Welch MD LAB BLOOD ORDERABLES Final Resul t [facility] [address] [place] [address], [place] [phone] * Lipid panel with reflex to direct LDL (09/24/2024 7:05 AM EDT) Pathologist [facility] Cholesterol 167 0 - 200 mg/dL LAB CHEMISTRY METHOD 09/24/2024 9:26 AM EDT [facility] Triglycerides 111 0 - 150 mg/dL LAB CHEMISTRY METHOD 09/24/2024 9:26 AM EDT [facility] HDL 62 >=40 mg/dL LAB CHEMISTRY METHOD 09/24/2024 9:26 AM EDT [facility] LDL Calculated 83 0 - 100 mg/dL LAB CHEMISTRY METHOD 09/24/2024 9:26 AM EDT [facility] VLDL Cholesterol Tim 22.2 mg/dL LAB CHEMISTRY METHOD 09/24/2024 9:26 AM EDT [facility] Non HDL Chol. (LDL+VLDL) 105 <145 mg/dL LAB CHEMISTRY METHOD 09/24/2024 9:[address] [facility] Chol/HDL Ratio 2.7 0.0 - 4.4 LAB CHEMISTRY METHOD 09/24/2024 9:[address] [facility] Blood Venous blood specimen / Unknown 09/24/2024 7:05 AM EDT 09/24/2024 8:39 AM EDT us Aleksander Welch MD LAB BLOOD ORDERABLES Final Resul t [facility] [address] [place] [address], * (ABNORMAL) Comprehensive metabolic panel (09/24/2024 7:05 AM EDT) Sodium 142 133 - 145 mmol/L LAB CHEMISTRY METHOD 09/24/2024 9:[address] [facility] Potassium 4.3 3.5 - 5.5 mmol/L LAB CHEMISTRY METHOD 09/24/2024 9:[address] [facility] Chloride 108 96 - 110 mmol/L LAB CHEMISTRY METHOD 09/24/2024 9:[address] [facility] CO2 29 21 - 32 mmol/L LAB CHEMISTRY METHOD 09/24/2024 9:[address] [facility] Anion Gap 5 3 - 11 LAB CHEMISTRY METHOD 09/24/2024 9:[address] [facility] Glucose 176(H) 70 - 100 mg/dL LAB CHEMISTRY METHOD 09/24/2024 9:[address] [facility] BUN 27(H) 5 - 25 mg/dL LAB CHEMISTRY METHOD 09/24/2024 9:[address] [facility] Creatinine 1.25 0.70 - 1.30 mg/dL LAB CHEMISTRY METHOD 09/24/2024 9:25 AM EDT [facility] eGFR 67 >=60 mL/min/1. 73m2 LAB CHEMISTRY METHOD 09/24/2024 9:[address] [facility] Comment:Calculation based on the Chronic Kidney Disease Epidemiology Collaboration (CKD-EPI) equation refit without adjustment for race. BUN/Creatinine Ratio 21.6 LAB CHEMISTRY METHOD 09/24/2024 9:[address] [facility] Calcium 9.1 8.5 - 10.5 mg/dL LAB CHEMISTRY METHOD 09/24/2024 9:[address] [facility] AST (SGOT) 17 10 - 42 unit/L LAB CHEMISTRY METHOD 09/24/2024 9:[address] [facility] ALT (SGPT) 20 10 - 60 unit/L LAB CHEMISTRY METHOD 09/24/2024 9:[address] [facility] Alkaline Phosphatase 114 42 - 121 unit/L LAB CHEMISTRY METHOD 09/24/2024 9:[address] [facility] Total Protein 6.5 6.0 - 8.0 g/dL LAB CHEMISTRY METHOD 09/24/2024 9:[address] [facility] Albumin 3.4 3.2 - 5.0 g/dL LAB CHEMISTRY METHOD 09/24/2024 9:[address] [facility] Total Bilirubin 0.2 0.0 - 1.4 mg/dL LAB CHEMISTRY METHOD 09/24/2024 9:[address] [facility] Blood Venous blood specimen / Unknown 09/24/2024 7:05 AM EDT 09/24/2024 8:39 AM EDT Aleksander Welch MD LAB BLOOD ORDERABLES Final Resul t [facility] [address] [place] [address], documented in this encounter Visit Diagnoses Diagnosis Chronic kidney disease, stage 3a (CMS/HCC V24, CMS/HCC V28) Other hyperlipidemia Anemia, unspecified Benign prostatic hyperplasia with lower urinary tract symptoms Encounter for other specified special examinations documented in this encounter Care Teams Technician Preventative Medicine Relationship Specialty Start Date End Date Aleksander Welch MD [address] [place] [address] Dr [address] ARTURO Oseguera PCP - General Internal Medicine 07/11/24 documented as of this encounter
--- OUTSIDE RECORDS SUMMARY | 2025-01-09 11:59 | XMS_ITS | Encounter Summary ---
Author Organization [facility] Address [address] [place] [address] Care Team Providers Care Developmental Therapist Name Role Phone Aleksander Welch MD Primary Care Provider [phone] Encounter Details Date Type Department Care Team (Late st Contact Info) Description 07/12/2024 Lab Requisition [facility] - Main Lab [address] [place] [address] Aleksander Welch MD [address] [place] [address] [address] [place] Urinary tract infection, site not specified Social History Tobacco Use Types Packs/Day Years [...] Procedure Name Priority Date/Time Associated Diagnosis Comments URINALYSIS WITH REFLEX MICROSCOPIC STAT 07/12/2024 6:58 PM EDT Urinary tract infection, site not specified REYES URINE CULTURE TUBE STAT 07/12/2024 6:58 PM EDT Urinary tract infection, site not specified URINALYSIS WITH REFLEX MICROSCOPIC STAT 07/12/2024 6:58 PM EDT Urinary tract infection, site not specified documented in this encounter Results * (ABNORMAL) Urinalysis with reflex microscopic (07/12/2024 6:58 PM EDT) Specific [place] Urine 1.022 1.003 - 1.030 LAB URINALYSIS - AUTOMATED METHOD 07/12/2024 9:[address] [facility] pH, Urine 5.5 5.0 - 8.0 pH LAB URINALYSIS - AUTOMATED METHOD 07/12/2024 9:16 PM [facility] Leukocytes, Urine Moderate(A) Negative LAB URINALYSIS - AUTOMATED METHOD 07/12/2024 9:16 PM [facility] Nitrite, Urine Negative Negative LAB URINALYSIS - AUTOMATED METHOD 07/12/2024 9:16 PM [facility] Protein, Urine 30(A) <=Trace mg/dL LAB URINALYSIS - AUTOMATED METHOD 07/12/2024 9:16 PM [facility] Glucose, Urine 500(A) Negative mg/dL LAB URINALYSIS - AUTOMATED METHOD 07/12/2024 9:16 PM [facility] Ketones, Urine Negative Negative mg/dL LAB URINALYSIS - AUTOMATED METHOD 07/12/2024 9:16 PM [facility] Urobilinogen , Urine 1.0 0.2 - 1.0 mg/dL LAB URINALYSIS - AUTOMATED METHOD 07/12/2024 9:16 PM [facility] Bilirubin, Urine Negative Negative LAB URINALYSIS - AUTOMATED METHOD 07/12/2024 9:16 PM [facility] Blood, Urine Small(A) Negative LAB URINALYSIS - AUTOMATED METHOD 07/12/2024 9:16 PM [facility] RBC, Urine 10(H) 0 - 4 /HPF 07/12/2024 9:16 PM [facility] WBC, Urine >100(H) 0 - 4 /HPF 07/12/2024 9:16 PM [facility] Squamous Epithelial, Urine 2 0 - 60 /LPF 07/12/2024 9:16 PM [facility] Bacteria, Urine Negative Negative /HPF 07/12/2024 9:16 PM [facility] Hyaline Casts, Urine 0 0 - 3 /LPF 07/12/2024 9:[address] [facility] Yeast, Urine Present(A) None /HPF 07/12/2024 9:[address] [facility] Urine Urine specimen obtained by clean catch procedure / Unknown 07/12/2024 6:58 PM EDT 07/12/2024 8:54 PM EDT us Aleksander Welch MD LAB URINE ORDERABLES Final Resul t Performing Organization Address City/[facility]/ZIP Co de Phone Number [facility] [address] [place] [address], [place] [phone] * Reyes urine culture tube (07/12/2024 6:58 PM EDT) Extra Tube Hold for add-ons. 07/12/2024 10:[address] [facility] Comment:Auto resulted. Urine Urine specimen obtained by clean catch procedure / Unknown 07/12/2024 6:58 PM EDT 07/12/2024 8:54 PM EDT us Aleksander Welch MD LAB URINE ORDERABLES Final Resul t Performing Organization Address City/[facility] Co de Phone Number [facility] [address] [place] [address], [place] [phone] documented in this encounter Visit Diagnoses Diagnosis Urinary tract infection, site not specified documented in this encounter Care Teams Developmental Therapist Relationship Specialty Start Date End Date Aleksander Welch MD [address] [place] [address] [address] ARTURO Oseguera PCP - General Internal Medicine 07/11/24 documented as of this encounter
--- OUTSIDE RECORDS SUMMARY | 2025-01-09 11:59 | XMS_ITS | Encounter Summary ---
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, CMS/HCC V28); Benign prostatic hyperplasia with lower urinary tract symptoms Social History Tobacco Use Types Packs/Day Years [...] PANEL WITH REFLEX TO DIRECT LDL Routine 02/27/2024 8:40 AM EST Type 1 diabetes mellitus with diabetic nephropathy (CMS/HCC) Benign prostatic hyperplasia with lower urinary tract symptoms PROSTATE SPECIFIC ANTIGEN DIAGNOSTIC Routine 02/27/2024 8:40 AM EST Type 1 diabetes mellitus with diabetic nephropathy (CMS/HCC) Benign prostatic hyperplasia with lower urinary tract symptoms CBC WITH AUTO DIFFERENTIAL Routine 02/27/2024 8:40 AM EST Type 1 diabetes mellitus with diabetic nephropathy (CMS/HCC) Benign prostatic hyperplasia with lower urinary tract symptoms CBC AND DIFFERENTIAL Routine 02/27/2024 8:40 AM EST Type 1 diabetes mellitus with diabetic nephropathy (CMS/HCC) Benign prostatic hyperplasia with lower urinary tract symptoms THYROID STIMULATING HORMONE Routine 02/27/2024 8:40 AM EST Type 1 diabetes mellitus with diabetic nephropathy (CMS/HCC) Benign prostatic hyperplasia with lower urinary tract symptoms HEMOGLOBIN A1C Routine 02/27/2024 8:40 AM EST Type 1 diabetes mellitus with diabetic nephropathy (CMS/HCC) Benign prostatic hyperplasia with lower urinary tract symptoms COMPREHENSIVE METABOLIC PANEL Routine 02/27/2024 8:40 AM EST Type 1 diabetes mellitus with diabetic nephropathy (CMS/HCC) Benign prostatic hyperplasia with lower urinary tract symptoms documented in this encounter Results * (ABNORMAL) CBC auto differential (02/27/2024 8:40 AM EST) [facility] WBC 11.0(H) 4.8 - 10.8 K/mcL LAB HEMETOLOGY METHOD 02/27/2024 10:54 AM [facility] RBC 3.40(L) 4.50 - 5.50 M/mcL LAB HEMETOLOGY METHOD 02/27/2024 10:54 AM [facility] Hemoglobin 10.6(L) 13.5 - 17.5 g/dL LAB HEMETOLOGY METHOD 02/27/2024 10:54 AM [facility] Hematocrit 32.3(L) 42.0 - 54.0 % LAB HEMETOLOGY METHOD 02/27/2024 10:54 AM [facility] MCV 94.7 79.0 - 98.0 FL LAB HEMETOLOGY METHOD 02/27/2024 10:54 AM [facility] MCH 31.1 27.0 - 32.0 pcg LAB HEMETOLOGY METHOD 02/27/2024 10:54 AM [facility] MCHC 32.8 32.0 - 37.0 g/dL LAB HEMETOLOGY METHOD 02/27/2024 10:54 AM [facility] RDW 13.7 11.0 - 15.0 % LAB HEMETOLOGY METHOD 02/27/2024 10:54 AM [facility] Platelets 377 130 - 400 K/mcL LAB HEMETOLOGY METHOD 02/27/2024 10:54 AM [facility] MPV 10.8 7.0 - 11.0 FL LAB HEMETOLOGY METHOD 02/27/2024 10:54 AM [facility] NRBC 0.0 <1.0 % LAB HEMETOLOGY METHOD 02/27/2024 10:54 AM [facility] NRBC Absolute 0.00 <0.10 K/mcL LAB HEMETOLOGY METHOD 02/27/2024 10:54 AM [facility] Neutrophils Relative 78.2 % LAB HEMETOLOGY METHOD 02/27/2024 10:54 AM [facility] Lymphocytes Relative 12.3 % LAB HEMETOLOGY METHOD 02/27/2024 10:54 AM [facility] Monocytes Relative 4.9 % LAB HEMETOLOGY METHOD 02/27/2024 10:54 AM [facility] Eosinophils Relative 3.1 % LAB HEMETOLOGY METHOD 02/27/2024 10:54 AM [facility] Basophils Relative 0.9 % LAB HEMETOLOGY METHOD 02/27/2024 10:54 AM [facility] Immature Granulocytes Relative 0.6 % LAB HEMETOLOGY METHOD 02/27/2024 10:54 AM [facility] Neutrophils Absolute 8.59(H) 1.50 - 7.00 K/mcL LAB HEMETOLOGY METHOD 02/27/2024 10:54 AM [facility] Lymphocytes Absolute 1.35 1.00 - 5.00 K/mcL LAB HEMETOLOGY METHOD 02/27/2024 10:54 AM [facility] Monocytes Absolute 0.54 0.20 - 1.00 K/mcL LAB HEMETOLOGY METHOD 02/27/2024 10:54 AM EST [facility] Eosinophils Absolute 0.34 0.00 - 0.50 K/[facility] LAB HEMETOLOGY METHOD 02/27/2024 10:54 AM EST [facility] Basophils Absolute 0.10 0.00 - 0.20 K/[facility] LAB HEMETOLOGY METHOD 02/27/2024 10:54 AM EST [facility] Immature Granulocytes Absolute 0.07(H) 0.00 - 0.03 K/[facility] LAB HEMETOLOGY METHOD 02/27/2024 10:54 AM EST [facility] Blood Venous blood specimen / Unknown 02/27/2024 8:40 AM EST 02/27/2024 9:44 AM EST us Aleksander Welch MD LAB BLOOD ORDERABLES Final Resul t Performing Organization Address City/[facility]/ZIP Co de Phone Number [facility] [address] [place] [address], [place] [phone] * Thyroid stimulating hormone (02/27/2024 8:40 AM EST) TSH 0.59 0.40 - 4.00 mcIU/mL LAB CHEMISTRY METHOD 02/27/2024 10:54 AM EST [facility] Blood Venous blood specimen / Unknown 02/27/2024 8:40 AM EST 02/27/2024 9:44 AM EST us Aleksander Welch MD LAB BLOOD ORDERABLES Final Resul t [facility] [address] [place] [address], [place] [phone] * Prostate specific antigen diagnostic (02/27/2024 8:40 AM EST) PSA 0.42 0.00 - 4.00 ng/mL LAB CHEMISTRY METHOD 02/27/2024 10:54 AM EST [facility] Blood Venous blood specimen / Unknown 02/27/2024 8:40 AM EST 02/27/2024 9:44 AM EST Narrative [facility] - 02/27/2024 10:54 AM EST The Siemens [employer] Chemiluminescent Immunoassay is used. Results obtained with different assay methods or kits cannot be used interchangeably. Results cannot be interpreted as absolute evidence of the presence or absence of malignant disease. us Aleksander Welch MD LAB BLOOD ORDERABLES Final Resul t Performing Organization Address [facility]/ZIP Co de Phone Number [facility] [address] [place] [address], [place] [phone] * (ABNORMAL) Hemoglobin A1c (02/27/2024 8:40 AM EST) Hemoglobin A1C 7.2(H) <6.5 % LAB CHEMISTRY METHOD 02/28/2024 12:23 PM EST [facility] Mean Bld Glu Estim. 160 mg/dL LAB CHEMISTRY METHOD 02/28/2024 12:23 PM EST [facility] Blood Venous blood specimen / Unknown 02/27/2024 8:40 AM EST 02/27/2024 9:44 AM EST us Aleksander Welch MD LAB BLOOD ORDERABLES Final Resul t Performing Organization Address [facility]/ZIP Co de Phone Number [facility] [address] [place] [address], [place] [phone] * (ABNORMAL) Lipid panel with reflex to direct LDL (02/27/2024 8:40 AM EST) Cholesterol 193 0 - 200 mg/dL LAB CHEMISTRY METHOD 02/27/2024 10:54 AM EST [facility] Triglycerides 81 0 - 150 mg/dL LAB CHEMISTRY METHOD 02/27/2024 10:54 AM EST [facility] HDL 70 >=40 mg/dL LAB CHEMISTRY METHOD 02/27/2024 10:54 AM [facility] LDL Calculated 107(H) 0 - 100 mg/dL LAB CHEMISTRY METHOD 02/27/2024 10:54 AM EST [facility] VLDL Cholesterol Tim 16.2 mg/dL LAB CHEMISTRY METHOD 02/27/2024 10:54 AM [facility] Non HDL Chol. (LDL+VLDL) 123 <145 mg/dL LAB CHEMISTRY METHOD 02/27/2024 10:54 AM [facility] Chol/HDL Ratio 2.8 0.0 - 4.4 LAB CHEMISTRY METHOD 02/27/2024 10:54 AM [facility] Blood Venous blood specimen / Unknown 02/27/2024 8:40 AM EST 02/27/2024 9:44 AM EST us Aleksander Welch MD LAB BLOOD ORDERABLES Final Resul t [facility] [address] [place] [address], [place] [phone] * (ABNORMAL) Comprehensive metabolic panel (02/27/2024 8:40 AM EST) Sodium 139 133 - 145 mmol/L LAB CHEMISTRY METHOD 02/27/2024 10:54 AM [facility] Potassium 4.4 3.5 - 5.5 mmol/L LAB CHEMISTRY METHOD 02/27/2024 10:54 AM [facility] Chloride 105 96 - 110 mmol/L LAB CHEMISTRY METHOD 02/27/2024 10:54 AM [facility] CO2 28 21 - 32 mmol/L LAB CHEMISTRY METHOD 02/27/2024 10:54 AM [facility] Anion Gap 6 3 - 11 LAB CHEMISTRY METHOD 02/27/2024 10:54 AM [facility] Glucose 76 70 - 100 mg/dL LAB CHEMISTRY METHOD 02/27/2024 10:54 AM [facility] BUN 15 5 - 25 mg/dL LAB CHEMISTRY METHOD 02/27/2024 10:54 AM [facility] Creatinine 0.96 0.70 - 1.30 mg/dL LAB CHEMISTRY METHOD 02/27/2024 10:54 AM [facility] eGFR 93 >=60 mL/min/1. 73m2 LAB CHEMISTRY METHOD 02/27/2024 10:54 AM [facility] Comment:Calculation based on the Chronic Kidney Disease Epidemiology Collaboration (CKD-EPI) equation refit without adjustment for race. BUN/Creatinine Ratio 15.6 LAB CHEMISTRY METHOD 02/27/2024 10:54 AM [facility] Calcium 9.8 8.5 - 10.5 mg/dL LAB CHEMISTRY METHOD 02/27/2024 10:54 AM [facility] AST (SGOT) 21 10 - 42 unit/L LAB CHEMISTRY METHOD 02/27/2024 10:54 AM [facility] ALT (SGPT) 23 10 - 60 unit/L LAB CHEMISTRY METHOD 02/27/2024 10:54 AM [facility] Alkaline Phosphatase 125(H) 42 - 121 unit/L LAB CHEMISTRY METHOD 02/27/2024 10:54 AM [facility] Total Protein 7.1 6.0 - 8.0 g/dL LAB CHEMISTRY METHOD 02/27/2024 10:54 AM [facility] Albumin 3.4 3.2 - 5.0 g/dL LAB CHEMISTRY METHOD 02/27/2024 10:54 AM [facility] Total Bilirubin 0.2 0.0 - 1.4 mg/dL LAB CHEMISTRY METHOD 02/27/2024 10:54 AM [facility] Blood Venous blood specimen / Unknown 02/27/2024 8:40 AM EST 02/27/2024 9:44 AM EST Aleksander Welch MD LAB BLOOD ORDERABLES Final Resul t [facility] [address] [place] [address], documented in this encounter Visit Diagnoses Diagnosis Type 1 diabetes mellitus with diabetic nephropathy (CMS/[facility] V24, [facility] V28) Benign prostatic hyperplasia with lower urinary tract symptoms documented in this encounter Care Teams Reefer Truck Driver Relationship Specialty Start Date End Date Aleksander Welch MD [address] [place] [address] Dr [address] [place], [place] PCP - General Internal Medicine 07/11/24 documented as of this encounter
--- OUTSIDE RECORDS SUMMARY | 2025-01-09 11:59 | XMS_ITS | Encounter Summary ---
Author Organization [facility] Address [address] [place] [address] Care Team Providers Care Retirement Plan Specialist Name Role Phone Aleksander Welch MD Primary Care Provider [phone] Encounter Details Date Type Department Care Team (Late st Contact Info) Description 07/11/2024 Lab Requisition [facility] - Main Lab [address] [facility] [place] [address] Aleksander Welch MD [address] [place] [address] Dr [address] [place] Type 2 diabetes mellitus without complications (CMS/HCC V24, CMS/HCC V28) Social History Tobacco Use Types Packs/Day Years Used Date Smoking Tobacco: Never Assessed Sex and Gender Information Value Date Recorded Sex Assigned at Not on file Legal Sex Male 9:40 AM EST Gender Identity Not on file Sexual Orientation Not on file documented as of this encounter Plan of Treatment Not on file documented as of this encounter Visit Diagnoses Diagnosis Type 2 diabetes mellitus without complications (CMS/HCC V24, CMS/HCC V28) documented in this encounter Care Teams Retirement Plan Specialist Relationship Specialty Start Date End Date Aleksander Welch MD [address] [place] [address] Dr [address] [place] PCP - General Internal Medicine 07/11/24 documented as of this encounter
--- OUTSIDE RECORDS SUMMARY | 2025-01-09 11:59 | XMS_ITS | Encounter Summary ---
Author Organization [facility] Address [address] [place] [address] Care Team Providers Care Manager Real Estate Name Role Phone Azalea Ann PA-C Primary Care Provider [phone] Encounter Details Date Type Department Care Team (Late st Contact Info) Description 09/29/2021 Lab Requisition [facility] Pathology & Laboratory Medicine - [facility] [address] [place], [place] [id number] Outr Resulting Lab, Provider Social History Tobacco [...] Name Priority Date/Time Associated Diagnosis Comments HIV 1/2 ANTIGEN AND ANTIBODY, 4TH GENERATION Routine 09/29/2021 17:09 EDT documented in this encounter Results * HIV 1/2 ANTIGEN AND ANTIBODY, 4TH GENERATION (09/29/2021 17:09 EDT) HIV 1 and 2 Antibody/p24 Antigen, 4th Generation Negative Negative 10/03/2021 9:51 EDT [facility] Comment:If acute HIV-1 infec tion is suspected in a high risk patient, submit plasma specimen for HIV-1 RNA quantitation test. Blood VENOUS BLOOD / Unknown 09/29/2021 17:09 EDT 09/30/2021 21:21 EDT Narrative [facility] - 10/03/2021 9:51 EDT Fourth Generation assay performed on the Siemens Spirationaur XPT. us Provider Outr Resulting Lab IMMUNOLOGY AND SEROL OGY ORDERABLES Final Result [facility] [address] [place] [address] documented in this encounter Visit Diagnoses Not on filedocumented in this encounter Care Teams Manager Real Estate Relationship Specialty Start Date End Date Azalea Ann PA-C [address] [place] [address] PCP - General 09/21/21 documented as of this encounter
--- OUTSIDE RECORDS SUMMARY | 2025-01-09 11:59 | XMS_ITS | Encounter Summary ---
Author Organization [facility] Address [address] [place] [address] Care Team Providers Care Bulk Driver Name Role Phone Marcus Hudson MD Primary Care Provider [phone] Azalea Ann PA-C Primary Care Provider [phone] Encounter Details Date Type Department Care Team (Late st Contact Info) Description 05/11/2020 Lab Requisition [facility] Pathology & Laboratory Medicine - [facility] [address] [place], [place] [address] Outr Resulting Lab, Provider Social History Tobacco [...] Date/Time Associated Diagnosis Comments HEMOGLOBIN A1C Routine 05/11/2020 12:18 EST documented in this encounter Results * (ABNORMAL) HEMOGLOBIN A1C (05/11/2020 12:18 EST) Hemoglobin A1c 8.3(H) <5.7 % 05/12/2020 8:27 EST [facility] Comment: Glycemic Status References: Normal: <5.7% Pre-Diabetes: 5.7% - 6.4% Diagnostic of Diabetes: > or = 6.5% (if confirmed) Goals for glycemic control in diabetics (ADA 2017): <7.0% target for non adults with diabetes. <7.5% target for children and adolescents with Type I Diabetes. More or less stringent targets may be appropriate for individual patients. Est Avg Glucose 192 mg/dL 8:27 EST [facility] Comment:The eAG represents t he A1c result expressed as average glucose in mg/dL. Blood VENOUS BLOOD / Unknown 05/11/2020 12:18 EST 05/11/2020 21:40 EST us Provider Outr Resulting Lab CHEMISTRY & BLOOD GA S ORDERABLES Final Result Performing Organization Address [facility] de Phone Number [facility] [address] [place] [address] documented in this encounter Visit Diagnoses Not on filedocumented in this encounter Care Teams Bulk Driver Relationship Specialty Start Date End Date Marcus Hudson MD [address] [place] [address] PCP - General 05/19/09 09/20/21 Azalea Ann PA-C [address] [place] [address] PCP - General 09/21/21 documented as of this encounter
--- OUTSIDE RECORDS SUMMARY | 2025-01-09 11:59 | XMS_ITS | Encounter Summary ---
Author Organization [facility] Address [address] [place] [address] Care Team Providers Care Brush Material Preparer Name Role Phone Marcus Hudson MD Primary Care Provider [phone] Azalea Ann PA-C Primary Care Provider [phone] Encounter Details Date Type Department Care Team (Late st Contact Info) Description 01/14/2020 Lab Requisition [facility] Pathology & Laboratory Medicine - [facility] [address] [place], [place] [address] Outr Resulting Lab, Provider Social History Tobacco [...] Name Priority Date/Time Associated Diagnosis Comments URINE [id number] NE RATIO (ACR) Routine 01/14/2020 14:04 EDT documented in this encounter Results * (ABNORMAL) ALBUMIN, URINE (01/14/2020 14:04 EDT) Albumin, Urine 12.3 See Note mg/dL 2019 23:[address] [facility] Comment: NOTE: Reference range not established Creatinine, Urine 64.0 See Note mg/dL 01/14/2020 23:[address] [facility] Comment: NOTE: Reference range not established Lab Urine Albumin to Creatinine Ratio 192(H) <30 ug/mg Creatinine 01/14/2020 23:[address] [facility] Comment: Urine Albumin/Creatinine Ratio: Normal: <30 ug/mg Creatinine Moderately increased albuminuria: 30-300 ug/mg Creatinine Anyagloria increased albuminuria: >300 ug/mg Creatinine Urine URINE SPECIMEN OBTAINED BY CLEAN CATCH PROCEDURE / Unknown 01/14/2020 14:04 EDT 01/14/2020 22:19 EDT us Provider Outr Resulting Lab CHEMISTRY & BLOOD GA S ORDERABLES Final Result [facility] [address] [place] [address] documented in this encounter Visit Diagnoses Not on filedocumented in this encounter Care Teams Brush Material Preparer Relationship Specialty Start Date End Date Marcus Hudson MD [address] [place] [address] PCP - General 05/19/09 09/20/21 Azalea Ann PA-C [address] [place] [address] PCP - General 09/21/21 documented as of this encounter
--- OUTSIDE RECORDS SUMMARY | 2025-01-09 11:59 | XMS_ITS | Encounter Summary ---
Author Organization [facility] Address [address] [place] [address] Care Team Providers Care Compensator Name Role Phone Marcus Hudson MD Primary Care Provider [phone] Azalea Ann PA-C Primary Care Provider [phone] Encounter Details Date Type Department Care Team (Late st Contact Info) Description 01/14/2020 Lab Requisition [facility] Pathology & Laboratory Medicine - [facility] [address] [place], [place] [address] Outr Resulting Lab, Provider Social History Tobacco [...] Date/Time Associated Diagnosis Comments HEMOGLOBIN A1C Routine 01/14/2020 14:04 EDT documented in this encounter Results * (ABNORMAL) HEMOGLOBIN A1C (01/14/2020 14:04 EDT) Hemoglobin A1c 9.2(H) <5.7 % 01/15/2020 10:44 EDT [facility] Comment: Glycemic Status References: Normal: <5.7% Pre-Diabetes: 5.7% - 6.4% Diagnostic of Diabetes: > or = 6.5% (if confirmed) Goals for glycemic control in diabetics (ADA 2017): <7.0% target for non adults with diabetes. <7.5% target for children and adolescents with Type I Diabetes. More or less stringent targets may be appropriate for individual patients. Est Avg Glucose 217 mg/dL 0 10:44 EDT [facility] Comment:The eAG represents t he A1c result expressed as average glucose in mg/dL. Blood VENOUS BLOOD / Unknown 01/14/2020 14:04 EDT 01/14/2020 22:25 EDT us Provider Outr Resulting Lab CHEMISTRY & BLOOD GA S ORDERABLES Final Result Performing Organization Address [facility] de Phone Number [facility] [address] [place] [address] documented in this encounter Visit Diagnoses Not on filedocumented in this encounter Care Teams Compensator Relationship Specialty Start Date End Date Marcus Hudson MD [address] [place] [address] PCP - General 05/19/09 09/20/21 Azalea Ann PA-C [address] [place] [address] PCP - General 09/21/21 documented as of this encounter
--- OUTSIDE RECORDS SUMMARY | 2025-01-09 11:59 | XMS_ITS | Encounter Summary ---
Author Organization [facility] Address [address] [place] [address] Care Team Providers Care Dairy Science Teacher Name Role Phone Azalea Ann PA-C Primary Care Provider [phone] Encounter Details Date Type Department Care Team (Late st Contact Info) Description 08/07/2023 Lab Requisition [facility] Pathology & Laboratory Medicine - [facility] [address] [place], [place] [id number] Outr Resulting Lab, Provider Social History Tobacco [...] Date/Time Associated Diagnosis Comments HEMOGLOBIN A1C Routine 08/02/2023 6:30 EDT documented in this encounter Results * (ABNORMAL) HEMOGLOBIN A1C (08/02/2023 6:30 EDT) Hemoglobin A1c 7.5(H) <5.7 % 08/07/2023 23:29 EDT [facility] Comment: Glycemic Status References: Normal: <5.7% Pre-Diabetes: 5.7% - 6.4% Diagnostic of Diabetes: > or = 6.5% (if confirmed) Est Avg Glucose 169 mg/dL 4 23:29 EDT [facility] Comment:The eAG represents t he A1c result expressed as average glucose in mg/dL. Blood VENOUS BLOOD / Unknown 08/02/2023 6:30 EDT 08/07/2023 22:03 EDT us Provider Outr Resulting Lab CHEMISTRY & BLOOD GA S ORDERABLES Final Result Performing Organization Address City/State/[facility] Co de Phone Number [facility] [address] [place], [place] [phone] documented in this encounter Visit Diagnoses Not on filedocumented in this encounter Care Teams Dairy Science Teacher Relationship Specialty Start Date End Date Azalea Ann PA-C [address] [place] [address] PCP - General 09/21/21 documented as of this encounter
--- OUTSIDE RECORDS SUMMARY | 2025-01-09 11:59 | XMS_ITS | Encounter Summary ---
Author Organization [facility] Address [address] [place] [address] Care Team Providers Care Tent Assembler Name Role Phone Marcus Hudson MD Primary Care Provider [phone] Azalea Ann PA-C Primary Care Provider [phone] Encounter Details Date Type Department Care Team (Late st Contact Info) Description 08/01/2019 Lab Requisition [facility] Pathology & Laboratory Medicine - [facility] [address] [place] [address] Nils Smallwood PA [address] [place], [place] [id number] Encounter for other general examination Social History Tobacco Use Types Packs/Day Years [...] Procedure Name Priority Date/Time Associated Diagnosis Comments COVID-19 TESTING Today 08/01/2019 15:1 1 EDT Encounter for other general examination documented in this encounter Results * COVID-19 TESTING (08/01/2019 15:11 EDT) COVID-19 Result Not Detected Not Detected 08/02/2019 18:50 EDT [facility] Swab ENTIRE NASOPHARYNX / Unknown 08/01/2019 15:11 EDT 08/01/2019 20:27 EDT Nils GARRETT MICROBIOLOGY - GENERAL O RDERABLES Final Result [facility] [place] documented in this encounter Visit Diagnoses Diagnosis Encounter for other general examination documented in this encounter Care Teams Tent Assembler Relationship Specialty Start Date End Date Marcus Hudson MD [address] [place] [address] PCP - General 05/19/09 09/20/21 Azalea Ann PA-C [address] [place] [address] PCP - General 09/21/21 documented as of this encounter
--- OUTSIDE RECORDS SUMMARY | 2025-01-09 11:59 | XMS_ITS | Encounter Summary ---
Author Organization [facility] Address [address] [place] [address] Care Team Providers Care Documentum Consultant Name Role Phone Azalea Ann PA-C Primary Care Provider [phone] Encounter Details Date Type Department Care Team (Late st Contact Info) Description 10/17/2021 Lab Requisition [facility] Pathology & Laboratory Medicine - [facility] [address] [place] [address] Julio C Isabel MD [address] [place] [address] Encounter for other general examination Social History [...] Procedure Name Priority Date/Time Associated Diagnosis Comments SURGICAL PATHOLOGY Today 10/14/2021 14 :13 EDT documented in this encounter Results * SURGICAL PATHOLOGY (10/14/2021 14:13 EDT) Note to Patient The following pathology results have been interpreted by your pathologist and may be available to you before your health provider has had the opportunity to review them. Please allow time for your provider to receive these results and explore management options, if applicable. 10/21/2021 19:10 EDT [facility] Final Diagnosis A. ESOPHAGUS, DISTAL, BIOPSY: - Gastric mucosa showing reactive (chemical) gastropathy. B. COLON, SIGMOID, POLYPS X 2, BIOPSIES: - Hyperplastic polyps. 10/21/2021 19:10 [facility] Attestation By the signature below, the attending physician certifies that they have 1) personally conducted a gross and/or microscopic examination of the described specimen(s), and/or personally interpreted the results of laboratory testing of the described specimen(s), and 2) personally rendered or confirmed the above diagnosis. 10/21/2021 19:10 [facility] at 1910 EDT Clinical History Chronic nausea; heartburn 10/21/2021 19:10 [facility] Gross Description A. Received in formalin labelled with proper patient identification (initials D, B) and distal esophagus are 5 fragments of pink-mcmanus soft tissue (ranging from 0.2 cm to 0.5 cm in greatest dimension). The specimen is entirely submitted in A1. B. Received in formalin labelled with proper patient identification (initials D, B) and sigmoid are 3 fragments of mcmanus soft tissue (ranging from 0.1 cm to 0.3 cm in greatest dimension). The specimen is entirely submitted in B1. GERRY LIU(ASCP) 10/19/2021 14:33 10/21/2021 19:10 T [facility] Performing Lab [facility] 10/21/2021 19:10 [facility] Scanned Images 10/21/2021 19:10 [facility] Tissue ESOPHAGEAL STRUCTURE / Unknown 10/14/2021 14:13 EDT 10/19/2021 8:53 EDT Tissue specimen (specimen) POLYP OF COLON / Unknown 10/14/2021 14:13 EDT 10/19/2021 8:53 EDT us Julio C Isabel MD PATHOLOGY ORDERABLES Final Re sult [facility] [address] [place] [address] documented in this encounter Visit Diagnoses Diagnosis Encounter for other general examination documented in this encounter Care Teams Documentum Consultant Relationship Specialty Start Date End Date Azalea Ann PA-C [address] [place] [address] PCP - General 09/21/21 documented as of this encounter
--- OUTSIDE RECORDS SUMMARY | 2025-01-09 11:59 | XMS_ITS | Encounter Summary ---
Author Organization [facility] Address [address] [place] [address] Care Team Providers Care Watch Assembler Name Role Phone Marcus Hudson MD Primary Care Provider [phone] Azalea Ann PA-C Primary Care Provider [phone] Encounter Details Date Type Department Care Team (Late st Contact Info) Description 04/15/[address] [facility] Pathology & Laboratory Medicine - [facility] [address] [place], [place] [address] Outr Resulting Lab, Provider Social History Tobacco [...] Date/Time Associated Diagnosis Comments HEMOGLOBIN A1C Routine 04/15/2020 9:17 EST documented in this encounter Results * (ABNORMAL) HEMOGLOBIN A1C (04/15/2020 9:17 EST) Hemoglobin A1c 8.3(H) <5.7 % 04/16/2020 7:49 EST [facility] Comment: Glycemic Status References: Normal: <5.7% Pre-Diabetes: 5.7% - 6.4% Diagnostic of Diabetes: > or = 6.5% (if confirmed) Goals for glycemic control in diabetics (ADA 2017): <7.0% target for non adults with diabetes. <7.5% target for children and adolescents with Type I Diabetes. More or less stringent targets may be appropriate for individual patients. Est Avg Glucose 192 mg/dL 0 7:49 EST [facility] Comment:The eAG represents t he A1c result expressed as average glucose in mg/dL. Blood VENOUS BLOOD / Unknown 04/15/2020 9:17 EST 04/15/2020 18:14 EST us Provider Outr Resulting Lab CHEMISTRY & BLOOD GA S ORDERABLES Final Result Performing Organization Address City/State/[facility] Co de Phone Number [facility] [address] [place] [address] documented in this encounter Visit Diagnoses Not on filedocumented in this encounter Care Teams Watch Assembler Relationship Specialty Start Date End Date Marcus Hudson MD [address] [place], [place] [id number] PCP - General 05/19/09 09/20/21 Azalea Ann PA-C [address] [place] [address] PCP - General 09/21/21 documented as of this encounter
--- OUTSIDE RECORDS SUMMARY | 2025-01-09 11:59 | XMS_ITS | Clinical Summary ---
Author Organization [facility] Address [facility] [place] [address] Care Team Providers Care Violent Crimes Detective Name Role Phone Loyd Thorne GANESH Primary Care Provider [phone] Allergies Active Allergy Reactions Criticality Noted Date [...] opioid overdose) for up to 2 doses. [place] into one nostril (either left or right). [...] metabolic encephalopathy 11/26/2023 DKA (diabetic ketoacidosis) 11/26/2023 ROSEANN (acute kidney injury) 11/26/2023 Coag negative Staphylococcus [...] drink = 0.6 oz pur e alcohol) [facility] Utilities Answer Date Recorded In the past 12 months has th e Floobits, Giraffe Friend, oil, or water eblizz threatened to shut off services in your [...] place to sleep or slept in a care home (including now)? No 08/13/2023 Housing Stability Vital Sign Answer Freddy e Recorded In the last 12 months, was t here a time when you were not able to pay the mortgage or rent on time? No 11/26/2023 In the past 12 months, how m any times have you moved where you were living? 1 11/26/2023 At any time in the past 12 m [facility], were you homeless or living in a care home (including now)? No 11/26/2023 DH IPV Inpatient [...] 09/04/1986 Zoster vaccine (1 of 2) 09/04/2017 DM Hemoglobin A1c 02/26/2024 11/26/2023, 06/16/2023 Covid-19 Vaccine (6 - 2024-2 6 season) 2024 04/11/2023, 01/18/2022, 05/11/2021, Additional history exists Influenza (Flu) vaccine (1 o f 1 [...] - 199 mg/dL 12/28/2023 8:52 AM EDT [facility] Comment:Glucose Concentratio n >=200 mg/dL plus symptoms is consistent with Diabetes Mellitus. Blood Urea Nitrogen 55(H) 10 - 20 mg/dL 12/28/2023 8:52 AM EDT [facility] Creatinine 1.38 0.80 - 1.50 mg/dL 12/28/2023 8:52 AM EDT [facility] Sodium 138 135 - 145 mMol/L 12/28/2023 8:52 AM EDT [facility] Potassium 4.3 3.5 - 5.0 mMol/L 12/28/2023 8:52 AM EDT [facility] Chloride 103 98 - 107 mMol/L 12/28/2023 8:52 AM EDT [facility] Carbon Dioxide 26 22 - 31 mMol/L 12/28/2023 8:52 AM EDT [facility] Anion Gap 9 5 - 15 mMol/L 12/28/2023 8:52 AM EDT [facility] Calcium 9.3 8.5 - 10.5 mg/dL 12/28/2023 8:52 AM [facility] Est Glomerular Filtration Rate - Male 60 mL/min/1. 73 m 12/28/2023 8:52 AM T [facility] Comment: This patient's estimated GFR was [...] Rivero MD CHEMISTRY ORDERABLES Final Re sult [facility] [place] [place] [address] * (ABNORMAL) Blood Gas, Arterial POC (12/06/2023 5:33 AM EDT) pH, Arterial 7.40 7.35 - 7.45 12/06/2023 6:53 AM EDT [facility] PCO2, Arterial 40 35 - 45 mmHg 12/06/2023 6:53 AM [facility] PO2, Arterial 97 85 - 104 mmHg 12/06/2023 6:53 AM [facility] Bicarbonate, Arterial 24.2 20.0 - 26.0 mmol/L 12/06/2023 6:53 AM [facility] Base Excess, Arterial -0.5 -3.0 - 3.0 mmol/L 12/06/2023 6:53 AM [facility] Hemoglobin, Arterial 9.4(L) 13.7 - 16.5 g/dL 12/06/2023 6:53 AM [facility] Oxyhemoglobin, Arterial 96.3 94.0 - 97.0 % 12/06/2023 6:53 AM [facility] Carboxyhemoglobin, Arterial 0.6 % 12/06/2023 6:53 AM [facility] Comment: Nonsmokers: 0.5-1.5% COHB Smokers: Variable but usually less than 10% Toxic: 20-30% COHB Lethal: Greater than 60% COHB Methemoglobin, Arterial 0.3 <=1.5 % 12/06/2023 6:53 AM [facility] Sodium, Arterial 136 135 - 145 mmol/L 12/06/2023 6:53 AM [facility] Potassium, Arterial 3.9 3.5 - 5.0 mmol/L 12/06/2023 6:53 AM [facility] Chloride, Arterial 103 98 - 107 mmol/L 12/06/2023 6:53 AM [facility] Lactate, Arterial 1.8 0.5 - 2.2 mmol/L 12/06/2023 6:53 AM [facility] Fraction of Inspired Oxygen 21 % 12/06/2023 6:53 AM [facility] PF Ratio 462 Ratio 12/06/2023 6:53 AM [facility] Comment:PF ratio calculated using the non-temperature corrected pO2 result. IONIZED CALCIUM, ARTERIAL 1.18 1.15 - 1.33 mmol/L 12/06/2023 6:53 AM EDT [facility] Glucose, Arterial 138 65 - 199 mg/dL 12/06/2023 6:53 AM EDT [facility] Comment:Glucose Concentratio n >=200 mg/dL plus symptoms is consistent with Diabetes Mellitus. Blood ARTERIAL BLOOD / Unknown 12/06/2023 5:33 AM EDT 12/06/2023 6:53 AM EDT us Fam Vanessa DO POINT OF CARE TEST ORDERABLES Fi nal Result Performing Organization Address City/[facility]/ZIP Co de Phone Number [facility] [place] [address] * (ABNORMAL) Hemoglobin A1c (11/26/2023 5:59 AM EDT) Hemoglobin A1c 8.6(H) 4.3 - 5.6 % 11/26/2023 8:08 AM EDT [facility] Comment: Per ADA guidelines, without clear [...] red blood cell turnover may not be retail representative of glycemic control. Reference Interval: 4.3 - 5.6% 5.7 - 6.4%: Consistent with prediabetes >=6.5%: Consistent with diagnosis of diabetes mellitus Estimated Average Glucose 200 mg/dL 11/26/2023 8:08 AM EDT [facility] Blood VENOUS BLOOD SPECIMEN / Unknown IP Care Team Draw / Unknown 11/26/2023 5:59 AM EDT 11/26/2023 6:08 AM EDT us Jack Bernal MD CHEMISTRY ORDERABLES Final R esult [facility] [place] [address] * HDL/Cholesterol Profile (06/16/2023 6:35 AM EST) Cholesterol, Total 141 mg/dL [facility] Comment: Lower Risk: <200 mg/dL Average Risk: 200-239 mg/dL Higher Risk: >nz=280 mg/dL HDL Cholesterol 36 mg/dL [facility] Comment: Males: Higher Risk: <40 mg/dL Females: Higher Risk: <50 mg/dL Cholesterol/HDL Ratio 3.9 ratio [facility] Chol/HDL Interpretation See Note [facility] Comment: Lipid management should be guided by a patient s ASCVD risk, goals and preferences. ACC/AHA Guidelines recommend high intensity statin if clinical ASCVD or LDL greater than or equal to 190 mg/dL. http://CoPromote.com/DPT-RIS-Dkpkrcxpv Measure LDL if Total Cholesterol minus HDL Cholesterol is greater than 220 mg/dL. Adults aged 40-75 with LDL 70-189 mg/dL should have their 10 year ASCVD risk estimated with the ACC/AHA ASCVD risk chemical unit operator http://tools.acc.org/GNANI-Zjon-Caclrukna/ Statin should be discussed if risk greater [...] CHEMISTRY ORDERABLES Final Result Performing Organization Address City/[facility]/ZIP Co de Phone Number [facility] [place] [address] from Last 3 Months or Most Recently Relevant to Health Maintenance [place] Advance Directives Documents on File Type Date Recorded Patient Drawing In Machine Tender Expl anation Advance Directives and Living Will [...] Status decision made by: Patient Care Teams Violent Crimes Detective Relationship Specialty Start Date End Date Loyd Thorne APRN [address] [place] [address] PCP - General Family Medicine 04/25/17
--- OUTSIDE RECORDS SUMMARY | 2025-01-09 12:00 | XMS_ITS | Encounter Summary ---
Author Organization [facility] Address [address] [place] [address] Care Team Providers Care Pharmacy Stock Clerk Name Role Phone Aleksander Welch MD Primary Care Provider [phone] Encounter Details Date Type Department Care Team (Late st Contact Info) Description 03/26/2024 Lab Requisition [facility] - Main Lab [address] [facility] [place] [address] Aleksander Welch MD [address] [place] [address] [address] ARTURO Oseguera Hemiplegia 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 (CMS/HCC V24, CMS/HCC V28) Social History Tobacco [...] Procedure Name Priority Date/Time Associated Diagnosis Comments PROSTATE SPECIFIC ANTIGEN SCREEN Routine 03/26/2024 6:55 AM EST Hemiplegia 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 (CMS/HCC) LIPID PANEL WITH REFLEX TO DIRECT LDL Routine 03/26/2024 6:55 AM EST Hemiplegia 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 (CMS/HCC) CBC WITH AUTO DIFFERENTIAL Routine 03/26/2024 6:55 AM EST Hemiplegia 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 (CMS/HCC) CBC AND DIFFERENTIAL Routine 03/26/2024 6:55 AM EST Hemiplegia 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 (CMS/HCC) THYROID STIMULATING HORMONE Routine 03/26/2024 6:55 AM EST Hemiplegia 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 (CMS/HCC) HEMOGLOBIN A1C Routine 03/26/2024 6:55 AM EST Hemiplegia 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 (CMS/HCC) COMPREHENSIVE METABOLIC PANEL Routine 03/26/2024 6:55 AM EST Hemiplegia 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 (CMS/HCC) documented in this encounter Results * (ABNORMAL) CBC auto differential (03/26/2024 6:55 AM EST) [facility] WBC 7.2 4.8 - 10.8 K/mcL LAB HEMETOLOGY METHOD 03/26/2024 9:47 AM [facility] RBC 3.20(L) 4.50 - 5.50 M/mcL LAB HEMETOLOGY METHOD 03/26/2024 9:47 AM [facility] Hemoglobin 10.0(L) 13.5 - 17.5 g/dL LAB HEMETOLOGY METHOD 03/26/2024 9:47 AM [facility] Hematocrit 30.5(L) 42.0 - 54.0 % LAB HEMETOLOGY METHOD 03/26/2024 9:47 AM [facility] MCV 94.1 79.0 - 98.0 FL LAB HEMETOLOGY METHOD 03/26/2024 9:47 AM [facility] MCH 30.9 27.0 - 32.0 pcg LAB HEMETOLOGY METHOD 03/26/2024 9:47 AM [facility] MCHC 32.8 32.0 - 37.0 g/dL LAB HEMETOLOGY METHOD 03/26/2024 9:47 AM [facility] RDW 12.3 11.0 - 15.0 % LAB HEMETOLOGY METHOD 03/26/2024 9:47 AM [facility] Platelets 361 130 - 400 K/mcL LAB HEMETOLOGY METHOD 03/26/2024 9:47 AM [facility] MPV 10.2 7.0 - 11.0 FL LAB HEMETOLOGY METHOD 03/26/2024 9:47 AM [facility] NRBC 0.0 <1.0 % LAB HEMETOLOGY METHOD 03/26/2024 9:47 AM [facility] NRBC Absolute 0.00 <0.10 K/mcL LAB HEMETOLOGY METHOD 03/26/2024 9:47 AM [facility] Neutrophils Relative 68.9 % LAB HEMETOLOGY METHOD 03/26/2024 9:47 AM [facility] Lymphocytes Relative 19.2 % LAB HEMETOLOGY METHOD 03/26/2024 9:47 AM [facility] Monocytes Relative 5.7 % LAB HEMETOLOGY METHOD 03/26/2024 9:47 AM [facility] Eosinophils Relative 4.3 % LAB HEMETOLOGY METHOD 03/26/2024 9:47 AM [facility] Basophils Relative 1.3 % LAB HEMETOLOGY METHOD 03/26/2024 9:47 AM [facility] Immature Granulocytes Relative 0.6 % LAB HEMETOLOGY METHOD 03/26/2024 9:47 AM [facility] Neutrophils Absolute 4.97 1.50 - 7.00 K/mcL LAB HEMETOLOGY METHOD 03/26/2024 9:47 AM [facility] Lymphocytes Absolute 1.38 1.00 - 5.00 K/mcL LAB HEMETOLOGY METHOD 03/26/2024 9:47 AM [facility] Monocytes Absolute 0.41 0.20 - 1.00 K/mcL LAB HEMETOLOGY METHOD 03/26/2024 9:47 AM [facility] Eosinophils Absolute 0.31 0.00 - 0.50 K/mcL LAB HEMETOLOGY METHOD 03/26/2024 9:47 AM EST [facility] Basophils Absolute 0.09 0.00 - 0.20 K/[facility] LAB HEMETOLOGY METHOD 03/26/2024 9:47 AM EST [facility] Immature Granulocytes Absolute 0.04(H) 0.00 - 0.03 K/[facility] LAB HEMETOLOGY METHOD 03/26/2024 9:47 AM EST [facility] Blood Venous blood specimen / Unknown 03/26/2024 6:55 AM EST 03/26/2024 8:55 AM EST us Aleksander Welch MD LAB BLOOD ORDERABLES Final Resul t Performing Organization Address [facility]/[place] Co de Phone Number [facility] [address] [place] [address], [place] [phone] * Prostate specific antigen screen (03/26/2024 6:55 AM EST) PSA 0.08 0.00 - 4.00 ng/mL LAB CHEMISTRY METHOD 03/26/2024 11:33 AM EST [facility] Blood Venous blood specimen / Unknown 03/26/2024 6:55 AM EST 03/26/2024 8:55 AM EST Narrative [facility] - 03/26/2024 11:33 AM EST The Siemens Advia Centaur Chemiluminescent Immunoassay is used. Results obtained with different assay methods or kits cannot be used interchangeably. Results cannot be interpreted as absolute evidence of the presence or absence of malignant disease. us Aleksander Welch MD LAB BLOOD ORDERABLES Final Resul t Performing Organization Address City/[facility]/ZIP Co de Phone Number [facility] [address] [place] [address], [place] [phone] * Thyroid stimulating hormone (03/26/2024 6:55 AM EST) TSH 3.31 0.40 - 4.00 mcIU/mL LAB CHEMISTRY METHOD 03/26/2024 11:33 AM EST [facility] Blood Venous blood specimen / Unknown 03/26/2024 6:55 AM EST 03/26/2024 8:55 AM EST us Aleksander Welch MD LAB BLOOD ORDERABLES Final Resul t Performing Organization Address City/[facility]/ZIP Co de Phone Number [facility] [address] [place] [address], [place] [phone] * Hemoglobin A1c (03/26/2024 6:55 AM EST) Hemoglobin A1C 6.4 <6.5 % LAB CHEMISTRY METHOD 03/26/2024 12:45 PM EST [facility] Mean Bld Glu Estim. 137 mg/dL LAB CHEMISTRY METHOD 03/26/2024 12:45 PM EST [facility] Blood Venous blood specimen / Unknown 03/26/2024 6:55 AM EST 03/26/2024 8:55 AM EST us Aleksander Welch MD LAB BLOOD ORDERABLES Final Resul t Performing Organization Address [facility]/ZIP Co de Phone Number [facility] [address] [place] [address], [place] [phone] * Lipid panel with reflex to direct LDL (03/26/2024 6:55 AM EST) Cholesterol 173 0 - 200 mg/dL LAB CHEMISTRY METHOD 03/26/2024 9:47 AM EST [facility] Triglycerides 55 0 - 150 mg/dL LAB CHEMISTRY METHOD 03/26/2024 9:47 AM EST [facility] HDL 75 >=40 mg/dL LAB CHEMISTRY METHOD 03/26/2024 9:47 AM EST [facility] LDL Calculated 87 0 - 100 mg/dL LAB CHEMISTRY METHOD 03/26/2024 9:47 AM [facility] VLDL Cholesterol Itm 11 mg/dL LAB CHEMISTRY METHOD 03/26/2024 9:47 AM [facility] Non HDL Chol. (LDL+VLDL) 98 <145 mg/dL LAB CHEMISTRY METHOD 03/26/2024 9:47 AM [facility] Chol/HDL Ratio 2.3 0.0 - 4.4 LAB CHEMISTRY METHOD 03/26/2024 9:47 AM [facility] Blood Venous blood specimen / Unknown 03/26/2024 6:55 AM EST 03/26/2024 8:55 AM EST us Aleksander Welch MD LAB BLOOD ORDERABLES Final Resul t [facility] [address] [place] [address], * (ABNORMAL) Comprehensive metabolic panel (03/26/2024 6:55 AM EST) Sodium 136 133 - 145 mmol/L LAB CHEMISTRY METHOD 03/26/2024 9:54 AM [facility] Potassium 4.6 3.5 - 5.5 mmol/L LAB CHEMISTRY METHOD 03/26/2024 9:54 AM [facility] Chloride 104 96 - 110 mmol/L LAB CHEMISTRY METHOD 03/26/2024 9:54 AM [facility] CO2 24 21 - 32 mmol/L LAB CHEMISTRY METHOD 03/26/2024 9:54 AM [facility] Anion Gap 8 3 - 11 LAB CHEMISTRY METHOD 03/26/2024 9:54 AM [facility] Glucose 471(HH) 70 - 100 mg/dL LAB CHEMISTRY METHOD 03/26/2024 9:54 AM [facility] BUN 35(H) 5 - 25 mg/dL LAB CHEMISTRY METHOD 03/26/2024 9:54 AM [facility] Comment:Results verified by repeat testing Creatinine 1.31(H) 0.70 - 1.30 mg/dL LAB CHEMISTRY METHOD 03/26/2024 9:54 AM [facility] eGFR 64 >=60 mL/min/1. 73m2 LAB CHEMISTRY METHOD 03/26/2024 9:54 AM [facility] Comment:Calculation based on the Chronic Kidney Disease Epidemiology Collaboration (CKD-EPI) equation refit without adjustment for race. BUN/Creatinine Ratio 26.7 LAB CHEMISTRY METHOD 03/26/2024 9:54 AM [facility] Calcium 9.4 8.5 - 10.5 mg/dL LAB CHEMISTRY METHOD 03/26/2024 9:54 AM [facility] AST (SGOT) 14 10 - 42 unit/L LAB CHEMISTRY METHOD 03/26/2024 9:54 AM [facility] ALT (SGPT) 19 10 - 60 unit/L LAB CHEMISTRY METHOD 03/26/2024 9:54 AM [facility] Alkaline Phosphatase 125(H) 42 - 121 unit/L LAB CHEMISTRY METHOD 03/26/2024 9:54 AM [facility] Total Protein 6.2 6.0 - 8.0 g/dL LAB CHEMISTRY METHOD 03/26/2024 9:54 AM [facility] Albumin 3.2 3.2 - 5.0 g/dL LAB CHEMISTRY METHOD 03/26/2024 9:54 AM [facility] Total Bilirubin 0.3 0.0 - 1.4 mg/dL LAB CHEMISTRY METHOD 03/26/2024 9:54 AM [facility] Blood Venous blood specimen / Unknown 03/26/2024 6:55 AM EST 03/26/2024 8:55 AM EST us Aleksander Welch MD LAB BLOOD ORDERABLES Final Resul t [facility] [address] [place] [address], documented in this encounter Visit Diagnoses Diagnosis Hemiplegia 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 (CMS/HCC V24, CMS/HCC V28) documented in this encounter Care Teams Pharmacy Stock Clerk Relationship Specialty Start Date End Date Aleksander Welch MD [address] [place] [address] Dr [address] [place], [place] PCP - General Internal Medicine 07/11/24 documented as of this encounter
== END 2025-01-09 11:19 | disposition home or self-care (01) ==
LOC: HO.US 11:18
PROVIDERS: PCP Hospitalist; Visit Provider Internal Medicine Nephrology
DX: N18.31 Chronic kidney disease, stage 3a (principal); N25.0 Renal osteodystrophy
CPT/HCPCS: 76775

== ENCOUNTER → 2025-01-09 11:24 | Outpatient (BNV) | payer MEDICAID, SELFPAY | PROVIDERS: PCP Hospitalist; Visit Provider Radiology Diagnostic Radiology | DX: N18.30 Chronic kidney disease, stage 3 unspecified (principal) | CPT/HCPCS: 76775 ==

== ENCOUNTER 2025-02-27 09:07 | Outpatient (AMB) | payer MEDICAID, SELFPAY ==
--- NOTE | 2025-02-27 09:12 | A.OFFVIS_ITS ---
Intake Visit Reasons: 6m/PVR Intake Note: Patient is Present for Follow Up Urology Medication: Finasteride, Tamsulosin Antibiotic Allergies: Penicillin Blood Thinners: Eliquis PVR: 100ml Home Energy Auditor Required: No Allergies Penicillins Adverse Reaction (Verified 02/27/25 09:21) Gastrointestinal Upset HPI Comments Details: Adriel is a male. Resident of [facility]. Seen for the following urologic conditions - urinary retention Six-month follow-up after starting finasteride PVR 100 cc Recent renal ultrasound normal PSA low less than 0.5 May come off finasteride Continue tamsulosin 12 month follow-up Episode of urinary retention Renetta Placed on tamsulosin Passed voiding trial at [facility] facility Does have occasional constipation [facility] Medical History (Updated 02/06/25 @ 13:10 by Roberta Edwards RN) DVT (deep venous thrombosis) CVA (cerebral vascular accident) Left hemiplegia Hepatitis C antibody positive Diabetes Elevated cholesterol Depression with anxiety Bipolar disorder Panic disorder PTSD (post-traumatic stress disorder) Carotid stenosis, right Hepatic steatosis BPH (benign prostatic hyperplasia) Osteoarthritis Opioid dependence Surgical History History of back surgery H/O colonoscopy History of esophagogastroduodenoscopy (EGD) Social History Alcohol intake: former Comment: Quit around 30-40 years ago per patient. Review of Systems Const Denies chills and Denies fever(s) Card Reports no additional complaints and Denies syncope Resp Denies cough GI Denies abdominal pain and Denies heartburn Reports as per HPI and Denies change in libido Neuro Denies syncope Psych Denies change in libido Endo Denies change in libido Physical Exam Const General: cooperative, healthy appearing, comfortable and no acute distress Orientation/consciousness: patient oriented x3 HEENT Face and sinus: Yes normal facial exam Mouth: moist mucous membranes Neck Neck: Yes normal visual inspection, Yes full ROM and Yes trachea midline Chest Chest palpation & inspection: normal inspection of the chest Resp Effort & Inspection: normal respiratory effort, able to speak in complete sentences and no respiratory distress GI Inspection: Yes normal to inspection Back/Spine/Pelvis Cervical Spine: normal cervical lordosis Thoracic/Lumbar Spine: thoracic and lumbar spine normal to inspection Skin General skin exam: no rashes or lesions noted Neuro General: patient oriented x3, gait normal, tone normal and moves all extremities Extrem General: Yes normal to inspection and Yes capillary refill normal Office Procedures Post Void Residual Post Residual Void Post Void Residual (PVR): 100 [id number] Void Residual by ultrasound Assessment & Plan Assessment & Plan (1) BPH (benign prostatic hyperplasia): Code(s): N40.0 - Benign prostatic hyperplasia without lower urinary tract symptoms Category: Medical (2) Urinary retention with incomplete bladder emptying: Code(s): R33.9 - Retention of urine, unspecified Category: Medical Plan Twelve month follow-up PVR Orders: Orders AMB Post Void Residual by ultrasound Today N40.0 - Benign prostatic hyperplasia without lower urinary tract symptoms Medications: Changed From tamsulosin 0.4 mg PO DAILY N40.0 - Benign prostatic hyperplasia without lower urinary tract symptoms To tamsulosin 0.4 mg PO BEDTIME 90 caps 3RF 90 days N40.0 - Benign prostatic hyperplasia without lower urinary tract symptoms Discontinued finasteride Discontinued Reason: Patient Completed Course 5 mg PO DAILY 90 days 90 tabs 1RF R33.9 - Retention of urine, unspecified Patient Instructions: This note is constructed using voice recognition software. While every effort has been made to ensure accuracy heating and air conditioning mechanic errors may have been included. Imaging studies, laboratory and physical exam results were discussed and reviewed in detail. No major barriers to patient understanding were identified. An opportunity to ask questions regarding the treatment plan was provided. All questions were answered. The patient expressed understanding and agreement with the above treatment plan. The patient is aware they should contact our office by phone for worsening of their current condition or the appearance of new urologic symptoms. Compliance is encouraged with any medications and followup testing that is ordered. It is a privilege to participate in the urologic care of your patient. If you have any questions or concerns regarding treatment for the above conditions, or other urologic issues, please do not hesitate to contact me. The office telephone contact is [phone]. Sincerely, Dr August Amato MD, [facility] - Urology Compassionate Specialist Care for the Genitourinary System Coding Level of Care Code Est Pt Level 3 (11234) Complex EM visit Add On G2211 Diagnoses BPH (benign prostatic hyperplasia) N40.0 Urinary retention with incomplete bladder emptying R33.9 CPT Codes Post Residual Void - PVR CPT Code: 19591-Nprq Void Residual by ultrasound ([id number])
--- OUTSIDE RECORDS SUMMARY | 2025-02-27 10:12 | XMS_ITS | Encounter Summary ---
Author Organization [facility] Address [address] [place] [address] Care Team Providers Care Psychotherapist Social Worker Name Role Phone Aleksander Welch MD Primary Care Provider [phone] Encounter Details Date Type Department Care Team (Late st Contact Info) Description 09/24/2024 Lab Requisition [facility] - Main Lab [address] [facility] [place] [address] Aleksander Welch MD [address] [place] [address] [address] [place], [place] Chronic kidney disease, stage 3a (CMS/HCC V24, [...] CBC auto differential (09/24/2024 7:05 AM EDT) [facility] WBC 6.4 4.8 - 10.8 K/mcL LAB [...] LAB HEMETOLOGY METHOD 09/24/2024 9:08 AM EDT [facility] Lymphocytes Absolute 1.71 1.00 - 5.00 K/mcL LAB HEMETOLOGY METHOD 09/24/2024 9:08 AM EDT [facility] Monocytes Absolute 0.46 0.20 - 1.00 K/mcL LAB HEMETOLOGY METHOD 09/24/2024 9:08 AM EDT [facility] Eosinophils Absolute 0.43 0.00 - 0.50 K/mcL LAB HEMETOLOGY METHOD 09/24/2024 9:08 AM EDT [facility] Basophils Absolute 0.08 0.00 - 0.20 K/mcL LAB HEMETOLOGY METHOD 09/24/2024 9:08 AM EDT [facility] Immature Granulocytes Absolute 0.03 0.00 - 0.03 K/mcL LAB HEMETOLOGY METHOD 09/24/2024 9:08 AM EDT [facility] Blood Venous blood specimen / Unknown 09/24/2024 7:05 AM EDT 09/24/2024 8:39 AM EDT us Aleksander Welch MD LAB BLOOD ORDERABLES Final Resul t Performing Organization Address [facility]/ZIP Co de Phone Number [facility] [address] [place] [address], [place] [phone] * Thyroid stimulating hormone (09/24/2024 7:05 AM EDT) TSH 1.32 0.40 - 4.00 mcIU/mL LAB CHEMISTRY METHOD 09/24/2024 11:14 AM EDT [facility] Blood Venous blood specimen / Unknown 09/24/2024 7:05 AM EDT 09/24/2024 8:39 AM EDT us Aleksander Welch MD LAB BLOOD ORDERABLES Final Resul t [facility] [address] [place] [address], [place] [phone] * Prostate specific antigen diagnostic (09/24/2024 7:05 AM EDT) Pathologist [facility] PSA 0.09 0.00 - 4.00 ng/mL LAB CHEMISTRY METHOD 09/24/2024 10:51 AM EDT [facility] Blood Venous blood specimen / Unknown 09/24/2024 7:05 AM EDT 09/24/2024 8:39 AM EDT Narrative [facility] - 09/24/2024 10:51 AM EDT The Siemens Advia TelemetryWebaur Chemiluminescent Immunoassay is used. Results obtained with different assay methods or kits cannot be used interchangeably. Results cannot be interpreted as absolute evidence of the presence or absence of malignant disease. Aleksander Welch MD LAB BLOOD ORDERABLES Final Resul t [facility] [address] [place] [address], [place] [phone] * Lipid panel with reflex to direct LDL (09/24/2024 7:05 AM EDT) Pathologist [facility] Cholesterol 167 0 - 200 mg/dL LAB CHEMISTRY METHOD 09/24/2024 9:26 AM EDT [facility] Triglycerides 111 0 - 150 mg/dL LAB CHEMISTRY METHOD 09/24/2024 9:26 AM EDT [facility] HDL 62 >=40 mg/dL LAB CHEMISTRY METHOD 09/24/2024 9:26 AM EDT [facility] LDL Calculated 83 0 - 100 mg/dL LAB CHEMISTRY METHOD 09/24/2024 9:26 AM EDT [facility] VLDL Cholesterol Tim 22.2 mg/dL LAB CHEMISTRY METHOD 09/24/2024 9:26 AM EDT [facility] Non HDL Chol. (LDL+VLDL) 105 <145 mg/dL LAB CHEMISTRY METHOD 09/24/2024 9:[address] [facility] Chol/HDL Ratio 2.7 0.0 - 4.4 LAB CHEMISTRY METHOD 09/24/2024 9:[address] [facility] Blood Venous blood specimen / Unknown 09/24/2024 7:05 AM EDT 09/24/2024 8:39 AM EDT us Aleksander Welch MD LAB BLOOD ORDERABLES Final Resul t [facility] [address] [place] [address], * (ABNORMAL) Comprehensive metabolic panel (09/24/2024 7:05 [...] MD LAB BLOOD ORDERABLES Final Resul t [facility] [address] [place] [address], documented in this encounter Visit Diagnoses Diagnosis Chronic kidney disease, stage 3a (CMS/HCC V24, CMS/HCC V28) Other hyperlipidemia Anemia, unspecified Benign prostatic hyperplasia with lower urinary tract symptoms Encounter for other specified special examinations documented in this encounter Care Teams Psychotherapist Social Worker Relationship Specialty Start Date End Date Aleksander Welch MD [address] [place] [address] Dr [address] ARTURO Oseguera PCP - General Internal Medicine 07/11/24 documented as of this encounter
--- OUTSIDE RECORDS SUMMARY | 2025-02-27 10:12 | XMS_ITS | Encounter Summary ---
Author Organization [facility] Address [address] [place] [address] Care Team Providers Care Framework Developer Name Role Phone Aleksander Welch MD Primary Care Provider [phone] Encounter Details Date Type Department Care Team (Late st Contact Info) Description 10/20/2024 Lab Requisition [facility] - Main Lab [address] [facility] [place] [address] Aleksander Welch MD [address] [place] [address] [address] [place] Type 1 diabetes mellitus with diabetic polyneuropathy (CMS/HCC V24, CMS/[facility] V28) Social History Tobacco Use Types Packs/Day [...] diabetes mellitus with diabetic polyneuropathy (CMS/HCC V24, CMS/[facility] V28) documented in this encounter Results * [...] MD LAB BLOOD ORDERABLES Final Resul t [facility] [address] [place] [address], documented in this encounter Visit Diagnoses Diagnosis Type 1 diabetes mellitus with diabetic polyneuropathy (CMS/HCC V24, CMS/HCC V28) documented in this encounter Care Teams Framework Developer Relationship Specialty Start Date End Date Aleksander Welch MD [address] [place] [address] Dr [address] [place], [place] PCP - General Internal Medicine 07/11/24 documented as of this encounter
--- OUTSIDE RECORDS SUMMARY | 2025-02-27 10:12 | XMS_ITS | Encounter Summary ---
Author Organization [employer] [facility] Address [address] [place] [address] Care Team Providers Care Stonemason Supervisor Name Role Phone Aleksander Welch MD Primary Care Provider [phone] Encounter Details Date Type Department Care Team (Late st Contact Info) Description 01/20/2025 Lab Requisition [facility] - Main Lab [address] [facility] [place] [address] Aleksander Welch MD [address] [place] [address] [address] [place], [place] Hemiplegia and hemiparesis following cerebral infarction affecting [...] Date/Time Associated Diagnosis Comments HEMOGLOBIN A1C Routine 01/20/2025 6:42 AM EDT Hemiplegia 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 (CMS/HCC V24, CMS/HCC V28) documented in this encounter Results * (ABNORMAL) Hemoglobin A1c (01/20/2025 6:42 AM EDT) Hemoglobin A1C 8.0(H) <6.5 % LAB CHEMISTRY METHOD 01/20/2025 11:43 AM EDT [facility] Mean Bld Glu Estim. 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
--- OUTSIDE RECORDS SUMMARY | 2025-02-27 10:12 | XMS_ITS | Clinical Summary ---
Author Organization [address] [facility] Address [address] [place] [address] Phone Care Team Providers Care Home Paraprofessional Name Role Phone Aleksander Welch MD Primary Care Provider [phone] Encounters Date Type Department Care Team Description 02/03/2025 Lab Requisition [facility] [address] [place] [phone] Aleksander Welch MD Encounter for other specified special examinations 01/20/2025 Lab Requisition [facility] [address] [place] [phone] Aleksander Welch MD Hemiplegia 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 ([facility] V24, CMS/[facility] V28) 01/16/2025 Lab Requisition [facility] [address] [place] [phone] Aleksander Welch MD Hemiplegia 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 ([facility] V24, [facility] V28) 01/13/2025 Lab Requisition [facility] [address] [place] [phone] Aleksander Welch MD Dysuria 01/13/2025 Lab Requisition [facility] [address] [place] [phone] Aleksander Welch MD Hemiplegia 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 ([facility] V24, [facility] V28) from Last 3 Months Social History Tobacco Use Types Packs/Day Years Used Date Smoking Tobacco: Never Assessed Sex and Gender Information Value Date Recorded Sex Assigned at Not on file Legal Sex Male 9:40 AM EST Gender Identity Not on file Sexual Orientation Not on file Plan of Treatment Health Maintenance Due Date Last Done Comments Colorectal Cancer Screening: Colonoscopy 1967 Diabetes: Annual Foot Exam 09/04/1977 Diabetes: Annual Retina Eye Exam 09/04/1977 DTaP,Tdap,and Td Vaccines (1 - Tdap) 09/04/1986 Hepatitis A Vaccines (1 of 2 - Risk 2-dose series) 09/04/1986 Hepatitis B Vaccines (1 of 3 - 19+ 3-dose series) 09/04/1986 Pneumococcal Vaccine: 50+ Years (1 of 2 - PCV) 09/04/1986 RSV Immunization Adult Patients (1 - Risk 50-74 years 1-dose series) 09/04/2017 Zoster Vaccines (1 of 2) 09/04/2017 Social Influencers of Health Screening 02/27/2024 Depression Screening 04/23/2024 Diabetes: Annual Urine Albumin-Creatinine Ratio (uACR) 07/11/2024 COVID-19 Vaccine ( season) 2024 Influenza Vaccine (#1) 2024 Diabetes: Blood Sugar Control Test (HGBA1C) 07/20/2025 01/20/2025, 10/20/2024, 07/11/2024, Additional history exists Diabetes: Annual GFR (Glomerular Filtration Rate) 01/13/2026 01/13/2025, 11/04/2024, 09/24/2024, Additional history exists Hypertension/CHF/CAD Annual BMP Blood Test 01/13/2026 01/13/2025, 11/04/2024, 09/24/2024, Additional history exists Cholesterol Screening (Lipid Panel) [...] Procedure Name Priority Date/Time Associated Diagnosis Comments VITAMIN D 25 HYDROXY Routine 02/03/2025 7:06 AM EDT Encounter for other specified special examinations HEMOGLOBIN A1C Routine 01/20/2025 6:42 AM EDT Hemiplegia 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 (CMS/HCC V24, CMS/HCC V28) URINALYSIS WITH REFLEX MICROSCOPIC Routine 01/16/2025 12:00 AM EDT Hemiplegia 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 (CMS/HCC V24, CMS/HCC V28) URINALYSIS WITH REFLEX MICROSCOPIC Routine 01/16/2025 12:00 AM EDT Hemiplegia 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 (CMS/HCC V24, CMS/HCC V28) CULTURE URINE Routine 01/16/2025 12:00 AM EDT Hemiplegia 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 (CMS/HCC V24, CMS/HCC V28) COMPLETE BLOOD COUNT Routine 01/13/2025 6:45 AM EDT Hemiplegia 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 (CMS/HCC V24, CMS/HCC V28) COMPREHENSIVE METABOLIC PANEL Routine 01/13/2025 6:45 AM EDT Hemiplegia 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 (CMS/HCC V24, CMS/HCC V28) HEPATITIS C ANTIBODY Routine 11/04/2024 8:53 AM EDT Chronic kidney disease (CKD) stage G3a/A1, moderately decreased glomerular filtration rate (GFR) between 45-59 mL/min/1.73 square meter and albuminuria creatinine ratio les* (CMS/HCC V24, CMS/HCC V28) Renal osteodystrophy LIPID PANEL WITH REFLEX TO DIRECT LDL Routine 09/24/2024 7:05 AM EDT Chronic kidney disease, stage 3a ([facility] V24, [facility] V28) Other hyperlipidemia Anemia, unspecified Benign prostatic hyperplasia with lower urinary tract symptoms Encounter for other specified special examinations HIV 1, 2 ANTIBODY, P24 ANTIGEN WITH REFLEX TO DIFFERENTIATION Routine 09/12/2024 6:59 AM EDT Chronic viral hepatitis C ([facility] V24, [facility] V28) from Last 3 Months or Most Recently Relevant to Health Maintenance Results * Vitamin D 25 hydroxy (02/03/2025 7:06 AM EDT) Vit D, 25-Hydroxy 32.9 30.0 - 80.0 ng/mL LAB CHEMISTRY METHOD 02/03/2025 9:15 AM EDT [facility] Blood Venous blood specimen / Unknown 02/03/2025 7:06 AM EDT 02/03/2025 7:54 AM EDT us Aleksander Welch MD LAB BLOOD ORDERABLES Final Resul t [facility] [address] [place] [address], [place] [phone] * (ABNORMAL) Hemoglobin A1c (01/20/2025 6:42 AM EDT) Hemoglobin A1C 8.0(H) <6.5 % LAB CHEMISTRY METHOD 01/20/2025 11:43 AM EDT [facility] Mean Bld Glu Estim. 183 mg/dL LAB CHEMISTRY METHOD 01/20/2025 11:43 AM EDT [facility] Blood Venous blood specimen / Unknown 01/20/2025 6:42 AM EDT 01/20/2025 7:11 AM EDT us Aleksander Welch MD LAB BLOOD ORDERABLES Final Resul t [facility] [address] [place] [address], * (ABNORMAL) Urinalysis with reflex microscopic (01/16/2025 12:00 AM EDT) Specific Painter Urine 1.017 1.003 - 1.030 LAB URINALYSIS - AUTOMATED METHOD 01/16/2025 8:44 AM [facility] pH, Urine 5.5 5.0 - 8.0 pH LAB URINALYSIS - AUTOMATED METHOD 01/16/2025 8:44 AM [facility] Leukocytes, Urine Moderate(A) Negative LAB URINALYSIS - AUTOMATED METHOD 01/16/2025 8:44 AM [facility] Nitrite, Urine Negative Negative LAB URINALYSIS - AUTOMATED METHOD 01/16/2025 8:44 AM [facility] Protein, Urine 30(A) <=Trace mg/dL LAB URINALYSIS - AUTOMATED METHOD 01/16/2025 8:44 AM [facility] Glucose, Urine Negative Negative mg/dL LAB URINALYSIS - AUTOMATED METHOD 01/16/2025 8:44 AM [facility] Ketones, Urine Negative Negative mg/dL LAB URINALYSIS - AUTOMATED METHOD 01/16/2025 8:44 AM [facility] Urobilinogen , Urine 1.0 0.2 - 1.0 mg/dL LAB URINALYSIS - AUTOMATED METHOD 01/16/2025 8:44 AM [facility] Bilirubin, Urine Negative Negative LAB URINALYSIS - AUTOMATED METHOD 01/16/2025 8:44 AM [facility] Blood, Urine Negative Negative LAB URINALYSIS - AUTOMATED METHOD 01/16/2025 8:44 AM [facility] RBC, Urine 2.2 0 - 4 /HPF LAB URINALYSIS - AUTOMATED METHOD 01/16/2025 8:44 AM EDT [facility] WBC, Urine 105.7(H) 0 - 4 /HPF LAB URINALYSIS - AUTOMATED METHOD 01/16/2025 8:44 AM EDT [facility] Squamous Epithelial, Urine 1 0 - 60 /LPF LAB URINALYSIS - AUTOMATED METHOD 01/16/2025 8:44 AM EDT [facility] Bacteria, Urine Negative Negative /HPF LAB URINALYSIS - AUTOMATED METHOD 01/16/2025 8:44 AM EDT [facility] Hyaline Casts, Urine 1.2 0 - 3 /LPF LAB URINALYSIS - AUTOMATED METHOD 01/16/2025 8:44 AM [facility] Yeast, Urine Present(A) None /HPF LAB URINALYSIS - AUTOMATED METHOD 01/16/2025 8:44 AM EDT [facility] Urine Urine specimen obtained by clean catch procedure / Unknown 01/16/2025 01/16/2025 7:51 AM EDT us Aleksander Welch MD LAB URINE ORDERABLES Final Resul t Performing Organization Address City/[facility]/ZIP Co de Phone Number [facility] [address] [place] [address], [place] [phone] * Culture urine (01/16/2025 12:00 AM EDT) Culture, Urine No growth 01/17/2025 7:16 AM EDT [facility] Urine Urine specimen obtained by clean catch procedure / Unknown 01/16/2025 01/16/2025 7:51 AM EDT us Aleksander Welch MD LAB MICROBIOLOGY - GENERAL ORDER SANTY Final Result Performing Organization Address City/[facility]/ZIP Co de Phone Number [facility] [address] [place] [address], [place] [phone] * (ABNORMAL) Complete blood count (01/13/2025 6:45 AM EDT) [facility] WBC 5.1 4.8 - 10.8 K/mcL LAB HEMETOLOGY METHOD 01/13/2025 8:09 AM [facility] RBC 4.10(L) 4.50 - 5.50 M/mcL LAB HEMETOLOGY METHOD 01/13/2025 8:09 AM [facility] Hemoglobin 12.6(L) 13.5 - 17.5 g/dL LAB HEMETOLOGY METHOD 01/13/2025 8:09 AM [facility] Hematocrit 36.2(L) 42.0 - 54.0 % LAB HEMETOLOGY METHOD 01/13/2025 8:09 AM [facility] MCV 87.9 79.0 - 98.0 FL LAB HEMETOLOGY METHOD 01/13/2025 8:09 AM [facility] MCH 30.6 27.0 - 32.0 pcg LAB HEMETOLOGY METHOD 01/13/2025 8:09 AM [facility] MCHC 34.8 32.0 - 37.0 g/dL LAB HEMETOLOGY METHOD 01/13/2025 8:09 AM [facility] RDW 11.9 11.0 - 15.0 % LAB HEMETOLOGY METHOD 01/13/2025 8:09 AM [facility] Platelets 222 130 - 400 K/mcL LAB HEMETOLOGY METHOD 01/13/2025 8:09 AM [facility] MPV 10.6 7.0 - 11.0 FL LAB HEMETOLOGY METHOD 01/13/2025 8:09 AM [facility] NRBC 0.0 <1.0 % LAB HEMETOLOGY METHOD 01/13/2025 8:09 AM EDT [facility] NRBC Absolute 0.00 <0.10 K/mcL LAB HEMETOLOGY METHOD 01/13/2025 8:09 AM [facility] Blood Venous blood specimen / Unknown 01/13/2025 6:45 AM EDT 01/13/2025 7:35 AM EDT us Aleksander Welch MD LAB BLOOD ORDERABLES Final Resul t [facility] [address] [place] [address], [place] [phone] * (ABNORMAL) Comprehensive metabolic panel (01/13/2025 6:45 AM EDT) Sodium 138 133 - 145 mmol/L LAB CHEMISTRY METHOD 01/13/2025 8:31 AM [facility] Potassium 4.2 3.5 - 5.5 mmol/L LAB CHEMISTRY METHOD 01/13/2025 8:31 AM [facility] Chloride 104 96 - 110 mmol/L LAB CHEMISTRY METHOD 01/13/2025 8:31 AM [facility] CO2 27 21 - 32 mmol/L LAB CHEMISTRY METHOD 01/13/2025 8:31 AM [facility] Anion Gap 7 3 - 11 LAB CHEMISTRY METHOD 01/13/2025 8:31 AM [facility] Glucose 296(H) 70 - 100 mg/dL LAB CHEMISTRY METHOD 01/13/2025 8:31 AM [facility] BUN 22 5 - 25 mg/dL LAB CHEMISTRY METHOD 01/13/2025 8:31 AM [facility] Creatinine 1.28 0.70 - 1.30 mg/dL LAB CHEMISTRY METHOD 01/13/2025 8:31 AM [facility] eGFR 65 >=60 mL/min/1. 73m2 LAB CHEMISTRY METHOD 01/13/2025 8:31 AM [facility] Comment:Calculation based on the Chronic Kidney Disease Epidemiology Collaboration (CKD-EPI) equation refit without adjustment for race. BUN/Creatinine Ratio 17.2 LAB CHEMISTRY METHOD 01/13/2025 8:31 AM [facility] Calcium 9.2 8.5 - 10.5 mg/dL LAB CHEMISTRY METHOD 01/13/2025 8:31 AM [facility] AST (SGOT) 15 10 - 42 unit/L LAB CHEMISTRY METHOD 01/13/2025 8:31 AM [facility] ALT (SGPT) 18 10 - 60 unit/L LAB CHEMISTRY METHOD 01/13/2025 8:31 AM [facility] Alkaline Phosphatase 113 42 - 121 unit/L LAB CHEMISTRY METHOD 01/13/2025 8:31 AM [facility] Total Protein 6.4 6.0 - 8.0 g/dL LAB CHEMISTRY METHOD 01/13/2025 8:31 AM [facility] Albumin 3.7 3.2 - 5.0 g/dL LAB CHEMISTRY METHOD 01/13/2025 8:31 AM [facility] Total Bilirubin 0.3 0.0 - 1.4 mg/dL LAB CHEMISTRY METHOD 01/13/2025 8:31 AM [facility] Blood Venous blood specimen / Unknown 01/13/2025 6:45 AM EDT 01/13/2025 7:35 AM EDT us Aleksander Welch MD LAB BLOOD ORDERABLES Final Resul t [facility] [address] [place] [address], * (ABNORMAL) Hepatitis C antibody (11/04/2024 8:53 AM EDT) Hepatitis C Antibody Positive (A) Negative LAB CHEMISTRY METHOD 11/04/2024 2:12 PM EDT [facility] Comment:If confirmation of t his positive HCV Ab screening test is needed, please redraw and order HCV Viral Load. Note--> This test may not be added on due to different specimen requirements. Blood Venous blood specimen / Unknown Venipuncture / Unknown 11/04/2024 8:53 AM EDT 11/04/2024 10:45 AM EDT us Chinmay Saenz MD LAB BLOOD ORDERABLES Final Re sult [facility] [address] [place] [address], [place] [phone] * Lipid panel with reflex to direct LDL (09/24/2024 7:05 AM EDT) Cholesterol 167 0 - 200 mg/dL LAB CHEMISTRY METHOD 09/24/2024 9:26 AM [facility] Triglycerides 111 0 - 150 mg/dL LAB CHEMISTRY METHOD 09/24/2024 9:26 AM [facility] HDL 62 >=40 mg/dL LAB CHEMISTRY METHOD 09/24/2024 9:26 AM [facility] LDL Calculated 83 0 - 100 mg/dL LAB CHEMISTRY METHOD 09/24/2024 9:26 AM [facility] VLDL Cholesterol Tim 22.2 mg/dL LAB CHEMISTRY METHOD 09/24/2024 9:26 AM [facility] Non HDL Chol. (LDL+VLDL) 105 <145 mg/dL LAB CHEMISTRY METHOD 09/24/2024 9:26 AM [facility] Chol/HDL Ratio 2.7 0.0 - 4.4 LAB CHEMISTRY METHOD 09/24/2024 9:26 AM [facility] Blood Venous blood specimen / Unknown 09/24/2024 7:05 AM EDT 09/24/2024 8:39 AM EDT us Aleksander Welch MD LAB BLOOD ORDERABLES Final Resul t Performing Organization Address [facility]/ZIP Co de Phone Number [facility] [address] [place] [address], [place] [phone] * HIV 1,2 antibody, p24 antigen with reflex to differentiation (09/12/2024 6:59 AM EDT) HIV Combo AB/AG Negative Negative LAB CHEMISTRY METHOD 09/12/2024 12:02 PM EDT [facility] Blood Venous blood specimen / Unknown 09/12/2024 6:59 AM EDT 09/12/2024 8:57 AM EDT Narrative [facility] - 09/12/2024 12:02 PM EDT This [...] ORDERABLES Final Resul t Performing Organization Address [facility] de Phone Number [facility] [address] [place] [address], [place] [phone] from Last 3 Months or Most Recently Relevant to Health Maintenance Insurance MEDICAID - [place] MEDICA[place] - [place] Care Teams Home Paraprofessional Relationship Specialty Start Date End Date Aleksander Welch MD [address] [place] [address] Dr [address] [place] PCP - General Internal Medicine 07/11/24
--- OUTSIDE RECORDS SUMMARY | 2025-02-27 10:12 | XMS_ITS | Encounter Summary ---
Author Organization [employer] Address [address] [place] [address] Care Team Providers Care Counseling Center Director Name Role Phone Aleksander Welch MD Primary Care Provider [phone] Encounter Details Date Type Department Care Team (Late st Contact Info) Description 09/12/2024 Lab Requisition [facility] - Main Lab [address] [facility] [place] [address] Alma Coon MD [address] [place] [id number] Chronic viral hepatitis C (CMS/HCC V24, [...] time with INR (09/12/2024 6:59 AM EDT) [facility] Protime 12.8 10.6 - 13.9 sec LAB COAGULATION METHOD 09/12/2024 5:19 PM EDT [facility] INR 1.0 LAB COAGULATION METHOD 09/12/2024 5:19 PM EDT [facility] Blood Venous blood specimen / Unknown 09/12/2024 6:59 AM EDT 09/12/2024 3:12 PM EDT Alma Coon MD LAB BLOOD ORDERABLES Kena l Result Performing Organization Address City/[facility]/ZIP Co de Phone Number [facility] [address] [place] [address], [place] [phone] * Treponema pallidum antibody with reflex to RPR and particle agglutination (09/12/2024 6:59 AM EDT) [facility] T. Pallidum Antibodies Negative Negative LAB CHEMISTRY METHOD 09/12/2024 10:38 PM EDT [facility] Blood Venous blood specimen / Unknown 09/12/2024 6:59 AM EDT 09/12/2024 9:01 AM EDT us Alma Coon MD LAB BLOOD ORDERABLES Kena l Result Performing Organization Address City/[facility]/ZIP Co de Phone Number [facility] [address] [place] [address], [place] [phone] * Hepatitis B surface antigen with reflex to confirmation (09/12/2024 6:59 AM EDT) Pathologist [facility] Hepatitis B Surface Ag Negative Negative LAB CHEMISTRY METHOD 09/12/2024 10:51 PM EDT [facility] Blood Venous blood specimen / Unknown 09/12/2024 6:59 AM EDT 09/12/2024 9:01 AM EDT Narrative [facility] - 09/12/2024 10:51 PM EDT Over the counter supplements containing high doses of biotin may interfere with this assay. If interference is suspected, patients shoud be retested after refraining from biotin supplements for 72 hours. us Alma Coon MD LAB BLOOD ORDERABLES Kena l Result Performing Organization Address [facility] Co de Phone Number [facility] [address] [place] [address], * HIV 1,2 antibody, p24 antigen with reflex to differentiation (09/12/2024 6:59 AM EDT) [facility] HIV Combo AB/AG Negative Negative LAB CHEMISTRY METHOD 09/12/2024 10:41 PM EDT [facility] Blood Venous blood specimen / Unknown 09/12/2024 6:59 AM EDT 09/12/2024 9:01 AM EDT Narrative [facility] - 09/12/2024 10:41 PM EDT [...] ORDERABLES Kena l Result Performing Organization Address [facility]/ZIP Co de Phone Number [facility] [address] [place] [address], [place] [phone] * (ABNORMAL) Hepatitis B surface antibody (09/12/2024 6:59 AM EDT) [facility] Hepatitis B Surface Ab Positive (A) Negative LAB CHEMISTRY METHOD 09/12/2024 10:02 PM EDT [facility] Hepatitis B Surface Ab Quantitative >1,000.0 mIU/mL LAB CHEMISTRY METHOD 09/12/2024 10:02 PM EDT [facility] Blood Venous blood specimen / Unknown 09/12/2024 6:59 AM EDT 09/12/2024 9:01 AM EDT Narrative [facility] - 09/12/2024 10:02 PM EDT >=10 mIU/mL is considered to be consistent with immunity. Alma Coon MD LAB BLOOD ORDERABLES Kena l Result [facility] [address] [place] [address], [place] [phone] * Bilirubin, total and direct (09/12/2024 6:59 AM EDT) [facility] Total Bilirubin 0.3 0.0 - 1.4 mg/dL LAB CHEMISTRY METHOD 09/12/2024 9:37 PM EDT [facility] Bilirubin, Direct 0.1 0.0 - 0.3 mg/dL LAB CHEMISTRY METHOD 09/12/2024 9:37 PM EDT [facility] Bilirubin, Indirect 0.2 0.0 - 1.1 mg/dL LAB CHEMISTRY METHOD 09/12/2024 9:37 PM EDT [facility] Blood Venous blood specimen / Unknown 09/12/2024 6:59 AM EDT 09/12/2024 9:01 AM EDT Alma Coon MD LAB BLOOD ORDERABLES Kena l Result Performing Organization Address [facility]/ZIP Co de Phone Number [facility] [address] [place] [address], [place] [phone] * Albumin (09/12/2024 6:59 AM EDT) Albumin 3.7 3.2 - 5.0 g/dL LAB CHEMISTRY METHOD 09/12/2024 9:37 PM EDT [facility] Blood Venous blood specimen / Unknown 09/12/2024 6:59 AM EDT 09/12/2024 9:01 AM EDT Alma Coon MD LAB BLOOD ORDERABLES Kena l Result Performing Organization Address [facility] Co de Phone Number [facility] [address] [place] [address], * (ABNORMAL) Creatinine (09/12/2024 6:59 AM EDT) Creatinine 1.38(H) 0.70 - 1.30 mg/dL LAB CHEMISTRY METHOD 09/12/2024 9:37 PM EDT [facility] eGFR 60 >=60 mL/min/1. 73m2 LAB CHEMISTRY METHOD 09/12/2024 9:37 PM EDT [facility] Comment:Calculation based on the Chronic Kidney Disease Epidemiology Collaboration (CKD-EPI) equation refit without adjustment for race. Blood Venous blood specimen / Unknown 09/12/2024 6:59 AM EDT 09/12/2024 9:01 AM EDT us Alma Coon MD LAB BLOOD ORDERABLES Kena l Result Performing Organization Address [facility]/ZIP Co de Phone Number [facility] [address] [place] [address], [place] [phone] * Aspartate aminotransferase (09/12/2024 6:59 AM EDT) AST (SGOT) 23 10 - 42 unit/L LAB CHEMISTRY METHOD 09/12/2024 9:37 PM EDT [facility] Comment:Hemolysis present Blood Venous blood specimen / Unknown 09/12/2024 6:59 AM EDT 09/12/2024 9:01 AM EDT Alma Coon MD LAB BLOOD ORDERABLES Kena l Result Performing Organization Address City/[facility]/ZIP Co de Phone Number [facility] [address] [place] [address], [place] [phone] * Alanine aminotransferase (09/12/2024 6:59 AM EDT) Pathologist [facility] ALT (SGPT) 23 10 - 60 unit/L LAB CHEMISTRY METHOD 09/12/2024 9:37 PM EDT [facility] Blood Venous blood specimen / Unknown 09/12/2024 6:59 AM EDT 09/12/2024 9:01 AM EDT Alma Coon MD LAB BLOOD ORDERABLES Kena l Result [facility] [address] [place] [address], [place] [phone] * (ABNORMAL) CBC auto differential (09/12/2024 6:59 AM EDT) WBC 6.9 4.8 - 10.8 K/[facility] LAB HEMETOLOGY METHOD 09/12/2024 5:02 PM EDT [facility] RBC 4.20(L) 4.50 - 5.50 M/mcL LAB HEMETOLOGY METHOD 09/12/2024 5:02 PM EDT [facility] Hemoglobin 12.7(L) 13.5 - 17.5 g/dL LAB HEMETOLOGY METHOD 09/12/2024 [facility] Hematocrit 39.2(L) 42.0 - 54.0 % LAB HEMETOLOGY METHOD 09/12/2024 5:[facility] MCV 93.3 79.0 - 98.0 FL LAB HEMETOLOGY METHOD 09/12/2024 5:02 PM [facility] MCH 30.2 27.0 - 32.0 pcg LAB HEMETOLOGY METHOD 09/12/2024 5:02 PM [facility] MCHC 32.4 32.0 - 37.0 g/dL LAB HEMETOLOGY METHOD 09/12/2024 5:02 PM [facility] RDW 13.2 11.0 - 15.0 % LAB HEMETOLOGY METHOD 09/12/2024 5:02 PM [facility] Platelets 252 130 - 400 K/mcL LAB HEMETOLOGY METHOD 09/12/2024 5:02 PM [facility] MPV 11.4(H) 7.0 - 11.0 FL LAB HEMETOLOGY METHOD 09/12/2024 5:02 PM [facility] NRBC 0.0 <1.0 % LAB HEMETOLOGY METHOD 09/12/2024 5:02 PM [facility] NRBC Absolute 0.00 <0.10 K/mcL LAB HEMETOLOGY METHOD 09/12/2024 5:02 PM [facility] Neutrophils Relative 56.4 % LAB HEMETOLOGY METHOD 09/12/2024 5:02 PM [facility] Lymphocytes Relative 26.3 % LAB HEMETOLOGY METHOD 09/12/2024 5:02 PM [facility] Monocytes Relative 6.0 % LAB HEMETOLOGY METHOD 09/12/2024 5:02 PM [facility] Eosinophils Relative 9.8 % LAB HEMETOLOGY METHOD 09/12/2024 5:02 PM EDT [facility] Basophils Relative 1.2 % LAB HEMETOLOGY METHOD 09/12/2024 5:02 PM EDT [facility] Immature Granulocytes Relative 0.3 % LAB HEMETOLOGY METHOD 09/12/2024 5:02 PM EDT [facility] Neutrophils Absolute 3.88 1.50 - 7.00 K/mcL LAB HEMETOLOGY METHOD 09/12/2024 5:02 PM EDT [facility] Lymphocytes Absolute 1.81 1.00 - 5.00 K/mcL LAB HEMETOLOGY METHOD 09/12/2024 5:[facility] Monocytes Absolute 0.41 0.20 - 1.00 K/mcL LAB HEMETOLOGY METHOD 09/12/2024 5:02 PM EDT [facility] Eosinophils Absolute 0.67(H) 0.00 - 0.50 K/mcL LAB HEMETOLOGY METHOD 09/12/2024 5:02 PM EDT [facility] Basophils Absolute 0.08 0.00 - 0.20 K/mcL LAB HEMETOLOGY METHOD 09/12/2024 5:[facility] Immature Granulocytes Absolute 0.02 0.00 - 0.03 K/mcL LAB HEMETOLOGY METHOD 09/12/2024 5:02 PM EDT [facility] Blood Venous blood specimen / Unknown 09/12/2024 6:59 AM EDT 09/12/2024 9:01 AM EDT us Alma Coon MD LAB BLOOD ORDERABLES Kena lim Result [facility] [address] [place] [address], * Hepatitis A antibody IgM (09/12/2024 6:59 AM EDT) Hepatitis A Antibody IgM Negative Negative LAB CHEMISTRY METHOD 09/12/2024 1:55 PM EDT [facility] Blood Venous blood specimen / Unknown 09/12/2024 6:59 AM EDT 09/12/2024 9:01 AM EDT Narrative [facility] - 09/12/2024 1:55 PM EDT Over the counter supplements containing high doses of biotin may interfere with this assay. If interference is suspected, patients shoud be retested after refraining from biotin supplements for 72 hours. us Alma Coon MD LAB BLOOD ORDERABLES Kena l Result Performing Organization Address City/[facility]/ZIP Co de Phone Number [facility] [address] [place] [address], [place] [phone] * White - K2EDTA (09/12/2024 6:59 AM EDT) Pathologist [facility] Extra Tube Hold for add-ons. 09/12/2024 11:01 AM EDT [facility] Comment:Auto resulted. Blood Venous blood specimen / Unknown 09/12/2024 6:59 AM EDT 09/12/2024 9:01 AM EDT us Alma Coon MD LAB BLOOD ORDERABLES Kena l Result [facility] [address] [place] [address], [place] [phone] * Lavender tube (09/12/2024 6:59 AM EDT) Pathologist [facility] Extra Tube Hold for add-ons. 09/12/2024 11:01 AM EDT [facility] Comment:Auto resulted. Blood Venous blood specimen / Unknown 09/12/2024 6:59 AM EDT 09/12/2024 9:01 AM EDT us Alma Coon MD LAB BLOOD ORDERABLES Kena l Result Performing Organization Address [facility] Co de Phone Number [facility] [address] [place] [address], [place] [phone] * SST tube (09/12/2024 6:59 AM EDT) [facility] Extra Tube Hold for add-ons. 09/12/2024 11:01 AM EDT [facility] Comment:Auto resulted. Blood Venous blood specimen / Unknown 09/12/2024 6:59 AM EDT 09/12/2024 9:01 AM EDT us Alma Coon MD LAB BLOOD ORDERABLES Kena l Result Performing Organization Address [facility] de Phone Number [facility] [address] [place] [address], [place] [phone] * (ABNORMAL) Hepatitis A antibody total with reflex IgM (09/12/2024 6:59 AM EDT) [facility] Hep A Total Ab Positive( A) Negative LAB CHEMISTRY METHOD 09/12/2024 12:04 PM EDT [facility] Blood Venous blood specimen / Unknown 09/12/2024 6:59 AM EDT 09/12/2024 9:01 AM EDT Narrative [facility] - 09/12/2024 12:04 PM EDT Over the counter supplements containing high doses of biotin may interfere with this assay. If interference is suspected, patients shoud be retested after refraining from biotin supplements for 72 hours. us Alma Coon MD LAB BLOOD ORDERABLES Kena l Result Performing Organization Address [facility] Co de Phone Number [facility] [address] [place] [address], [place] [phone] documented in this encounter Visit Diagnoses Diagnosis Chronic viral hepatitis C (CMS/HCC V24, CMS/HCC V28) Chronic hepatitis C without mention of hepatic coma documented in this encounter Care Teams Counseling Center Director Relationship Specialty Start Date End Date Aleksander Welch MD [address] [place] [address] Dr [address] ARTURO Oseguera PCP - General Internal Medicine 07/11/24 documented as of this encounter
--- OUTSIDE RECORDS SUMMARY | 2025-02-27 10:12 | XMS_ITS | Encounter Summary ---
Author Organization [employer] Address [address] [place] [address] Care Team Providers Care Hammersmith Helper Name Role Phone Aleksander Welch MD Primary Care Provider [phone] Encounter Details Date Type Department Care Team (Late st Contact Info) Description 01/16/2025 Lab Requisition [facility] - Main Lab [address] [facility] [place] [address] Aleksander Welch MD [address] [place] [address] [address] ARTURO Oseguera Hemiplegia and [...] Associated Diagnosis Comments URINALYSIS WITH REFLEX MICROSCOPIC Routine 01/16/2025 12:00 [...] Results * (ABNORMAL) Urinalysis with reflex microscopic (01/16/2025 12:00 AM EDT) [facility] Specific [place] Urine 1.017 1.003 - 1.030 LAB URINALYSIS - AUTOMATED METHOD 01/16/2025 8:[address] [facility] pH, Urine 5.5 5.0 - 8.0 pH LAB URINALYSIS - AUTOMATED METHOD 01/16/2025 8:[address] [facility] Leukocytes, Urine Moderate(A) Negative LAB URINALYSIS - AUTOMATED METHOD 01/16/2025 8:[address] [facility] Nitrite, Urine Negative Negative LAB URINALYSIS - AUTOMATED METHOD 01/16/2025 8:[address] [facility] Protein, Urine 30(A) <=Trace mg/dL LAB URINALYSIS - AUTOMATED METHOD 01/16/2025 8:[address] [facility] Glucose, Urine Negative Negative mg/dL LAB URINALYSIS - AUTOMATED METHOD 01/16/2025 8:[address] [facility] Ketones, Urine Negative Negative mg/dL LAB URINALYSIS - AUTOMATED METHOD 01/16/2025 8:[address] [facility] Urobilinogen , Urine 1.0 0.2 - 1.0 mg/dL LAB URINALYSIS - AUTOMATED METHOD 01/16/2025 8:[address] [facility] Bilirubin, Urine Negative Negative LAB URINALYSIS - AUTOMATED METHOD 01/16/2025 8:[address] [facility] Blood, Urine Negative Negative LAB URINALYSIS - AUTOMATED METHOD 01/16/2025 8:[address] [facility] RBC, Urine 2.2 0 - 4 /HPF LAB URINALYSIS - AUTOMATED METHOD 01/16/2025 8:[address] [facility] WBC, Urine 105.7(H) 0 - 4 /HPF LAB URINALYSIS - AUTOMATED METHOD 01/16/2025 8:[address] [facility] Squamous Epithelial, Urine 1 0 - 60 /LPF LAB URINALYSIS - AUTOMATED METHOD 01/16/2025 8:44 AM EDT [facility] Bacteria, Urine Negative Negative /HPF LAB URINALYSIS - AUTOMATED METHOD 01/16/2025 8:44 AM EDT [facility] Hyaline Casts, Urine 1.2 0 - 3 /LPF LAB URINALYSIS - AUTOMATED METHOD 01/16/2025 8:44 AM EDT [facility] Yeast, Urine Present(A) None /HPF LAB URINALYSIS - AUTOMATED METHOD 01/16/2025 8:44 AM EDT [facility] Urine Urine specimen obtained by clean catch procedure / Unknown 01/16/2025 01/16/2025 7:51 AM EDT us Aleksander Welch MD LAB URINE ORDERABLES Final Resul t Performing Organization Address City/[facility]/ZIP Co de Phone Number [facility] [address] [place] [address], [place] [phone] * Culture urine (01/16/2025 12:00 AM EDT) Culture, Urine No growth 01/17/2025 7:16 AM EDT [facility] Urine Urine specimen obtained by clean catch procedure / Unknown 01/16/2025 01/16/2025 7:51 AM EDT us Aleksander Welch MD LAB MICROBIOLOGY - GENERAL ORDER SANTY Final Result Performing Organization Address City/[facility]/ZIP Co de Phone Number [facility] [address] [place] [address], [place] [phone] documented in this encounter Visit Diagnoses Diagnosis Hemiplegia 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 (CMS/HCC V24, CMS/HCC V28) documented in this encounter Care Teams Hammersmith Helper Relationship Specialty Start Date End Date Aleksander Welch MD [address] [place] [address] Dr [facility] ARTURO Oseguera PCP - General Internal Medicine 07/11/24 documented as of this encounter
--- OUTSIDE RECORDS SUMMARY | 2025-02-27 10:12 | XMS_ITS | Encounter Summary ---
Author Organization [facility] Address [address] [place] [address] Care Team Providers Care Business Initiatives Manager Name Role Phone Marcus Hudson MD Primary Care Provider [phone] Azalea Ann PA-C Primary Care Provider [phone] Encounter Details Date Type Department Care Team (Late st Contact Info) Description 08/01/2019 Lab Requisition [facility] [address] [place] [address] Nils Smallwood PA [address] [place], [place] [id number] Encounter for other general examination Social History [...] Not Detected Not Detected 08/02/2019 18:[address] [facility] Swab ENTIRE NASOPHARYNX / Unknown 08/01/2019 15:11 EDT 08/01/2019 20:27 EDT Nils GARRETT MICROBIOLOGY - GENERAL O RDERABLES Final Result [facility] [place], [place] documented in this encounter Visit Diagnoses Diagnosis Encounter for other general examination documented in this encounter Care Teams Business Initiatives Manager Relationship Specialty Start Date End Date Marcus Hudson MD [address] [place] [address] PCP - General 05/19/09 09/20/21 Azalea Ann PA-C [address] [place] [address] PCP - General 09/21/21 documented as of this encounter
--- OUTSIDE RECORDS SUMMARY | 2025-02-27 10:12 | XMS_ITS | Encounter Summary ---
Author Organization [facility] Address [address] [place] [address] Care Team Providers Care Electronic Equipment Installer Name Role Phone Aleksander Welch MD Primary Care Provider [phone] Encounter Details Date Type Department Care Team (Late st Contact Info) Description 09/12/2024 Lab Requisition [facility] - Main Lab [address] [facility] [place] [address] Aleksander Welch MD [address] [place] [address] [address] [place] Chronic viral hepatitis C (CMS/HCC V24, CMS/HCC [...] Hold for add-ons. 09/12/2024 10:01 AM EDT [facility] Comment:Auto resulted. Blood Venous blood specimen / Unknown 09/12/2024 6:59 AM EDT 09/12/2024 8:57 AM EDT us Aleksander Welch MD LAB BLOOD ORDERABLES Final Resul t Performing Organization Address City/[facility]/ZIP Co de Phone Number [facility] [address] [place] [address], [place] [phone] * SST tube (09/12/2024 6:59 AM EDT) Extra Tube Hold for add-ons. 09/12/2024 10:01 AM EDT [facility] Comment:Auto resulted. Blood Venous blood specimen / Unknown 09/12/2024 6:59 AM EDT 09/12/2024 8:57 AM EDT us Aleksander Welch MD LAB BLOOD ORDERABLES Final Resul t Performing Organization Address [facility]/ZIP Co de Phone Number [facility] [address] [place] [address], [place] [phone] * (ABNORMAL) CBC auto differential (09/12/2024 6:59 AM EDT) WBC 6.6 4.8 - 10.8 K/[facility] LAB HEMETOLOGY METHOD 09/12/2024 9:37 AM EDT [facility] RBC 4.10(L) 4.50 - 5.50 M/[facility] LAB HEMETOLOGY METHOD 09/12/2024 9:37 AM EDT [facility] Hemoglobin 12.4(L) 13.5 - 17.5 g/dL LAB HEMETOLOGY METHOD 09/12/2024 9:37 AM [facility] Hematocrit 37.1(L) 42.0 - 54.0 % LAB HEMETOLOGY METHOD 09/12/2024 9:37 AM [facility] MCV 91.6 79.0 - 98.0 FL LAB HEMETOLOGY METHOD 09/12/2024 9:37 AM [facility] MCH 30.6 27.0 - 32.0 pcg LAB HEMETOLOGY METHOD 09/12/2024 9:37 AM [facility] MCHC 33.4 32.0 - 37.0 g/dL LAB HEMETOLOGY METHOD 09/12/2024 9:37 AM [facility] RDW 13.0 11.0 - 15.0 % LAB HEMETOLOGY METHOD 09/12/2024 9:37 AM [facility] Platelets 182 130 - 400 K/mcL LAB HEMETOLOGY METHOD 09/12/2024 9:37 AM [facility] Comment:reviewed by slide MPV 11.5(H) 7.0 - 11.0 FL LAB HEMETOLOGY METHOD 09/12/2024 9:37 AM [facility] NRBC 0.0 <1.0 % LAB HEMETOLOGY METHOD 09/12/2024 9:37 AM [facility] NRBC Absolute 0.00 <0.10 K/mcL LAB HEMETOLOGY METHOD 09/12/2024 9:37 AM [facility] Neutrophils Relative 56.9 % LAB HEMETOLOGY METHOD 09/12/2024 9:37 AM [facility] Lymphocytes Relative 26.4 % LAB HEMETOLOGY METHOD 09/12/2024 9:37 AM [facility] Monocytes Relative 6.6 % LAB HEMETOLOGY METHOD 09/12/2024 9:37 AM [facility] Eosinophils Relative 8.7 % LAB HEMETOLOGY METHOD 09/12/2024 9:37 AM EDT [facility] Basophils Relative 1.1 % LAB HEMETOLOGY METHOD 09/12/2024 9:37 AM EDT [facility] Immature Granulocytes Relative 0.3 % LAB HEMETOLOGY METHOD 09/12/2024 9:37 AM EDT [facility] Neutrophils Absolute 3.73 1.50 - 7.00 K/mcL LAB HEMETOLOGY METHOD 09/12/2024 9:37 AM EDT [facility] Lymphocytes Absolute 1.73 1.00 - 5.00 K/mcL LAB HEMETOLOGY METHOD 09/12/2024 9:37 AM EDT [facility] Monocytes Absolute 0.43 0.20 - 1.00 K/mcL LAB HEMETOLOGY METHOD 09/12/2024 9:37 AM EDT [facility] Eosinophils Absolute 0.57(H) 0.00 - 0.50 K/mcL LAB HEMETOLOGY METHOD 09/12/2024 9:37 AM EDT [facility] Basophils Absolute 0.07 0.00 - 0.20 K/mcL LAB HEMETOLOGY METHOD 09/12/2024 [facility] Immature Granulocytes Absolute 0.02 0.00 - 0.03 K/mcL LAB HEMETOLOGY METHOD 09/12/2024 9:37 AM EDT [facility] Blood Venous blood specimen / Unknown 09/12/2024 6:59 AM EDT 09/12/2024 8:57 AM EDT us Aleksander Welch MD LAB BLOOD ORDERABLES Final Resul t [facility] [address] [place] [address], * HIV 1,2 antibody, p24 antigen with reflex to differentiation (09/12/2024 6:59 AM EDT) [facility] HIV Combo AB/AG Negative Negative LAB CHEMISTRY METHOD 09/12/2024 12:02 PM EDT [facility] Blood Venous blood specimen / Unknown 09/12/2024 6:59 AM EDT 09/12/2024 8:57 AM EDT Narrative [facility] - 09/12/2024 12:02 PM [...] ORDERABLES Final Resul t Performing Organization Address City/[facility]/ZIP Co de Phone Number [facility] [address] [place] [address], [place] [phone] * Hepatitis C virus quantitative molecular study (09/12/2024 6:59 AM EDT) [facility] HCV Qual Interp Not Detected Not Detected LAB MOLECULAR DIAGNOSTICS METHOD 09/14/2024 12:43 PM EDT [facility] Comment:HCV RNA not detected , unable to report quantitative results. Blood Venous blood specimen / Unknown 09/12/2024 6:59 AM EDT 09/12/2024 8:57 AM EDT us Aleksander Welch MD LAB BLOOD ORDERABLES Final Resul t [facility] [address] [place] [address], [place] [phone] * Treponema pallidum antibody with reflex to RPR and particle agglutination (09/12/2024 6:59 AM EDT) [facility] T. Pallidum Antibodies Negative Negative LAB CHEMISTRY METHOD 09/12/2024 11:34 AM EDT [facility] Blood Venous blood specimen / Unknown 09/12/2024 6:59 AM EDT 09/12/2024 8:57 AM EDT us Aleksander Welch MD LAB BLOOD ORDERABLES Final Resul t Performing Organization Address [facility]/ZIP Co de Phone Number [facility] [address] [place] [address], [place] [phone] * (ABNORMAL) Creatinine (09/12/2024 6:59 AM EDT) Creatinine 1.38(H) 0.70 - 1.30 mg/dL LAB CHEMISTRY METHOD 09/12/2024 9:40 AM EDT [facility] eGFR 60 >=60 mL/min/1. 73m2 LAB CHEMISTRY METHOD 09/12/2024 9:40 AM EDT [facility] Comment:Calculation based on the Chronic Kidney Disease Epidemiology Collaboration (CKD-EPI) equation refit without adjustment for race. Blood Venous blood specimen / Unknown 09/12/2024 6:59 AM EDT 09/12/2024 8:57 AM EDT us Aleksander Welch MD LAB BLOOD ORDERABLES Final Resul t Performing Organization Address [facility]/ZIP Co de Phone Number [facility] [address] [place] [address], [place] [phone] * Alanine aminotransferase (09/12/2024 6:59 AM EDT) ALT (SGPT) 21 10 - 60 unit/L LAB CHEMISTRY METHOD 09/12/2024 9:40 AM EDT [facility] Blood Venous blood specimen / Unknown 09/12/2024 6:59 AM EDT 09/12/2024 8:57 AM EDT us Aleksander Welch MD LAB BLOOD ORDERABLES Final Resul t Performing Organization Address [facility] Co de Phone Number [facility] [address] [place] [address], [place] [phone] * Aspartate aminotransferase (09/12/2024 6:59 AM EDT) Pathologist [facility] AST (SGOT) 11 10 - 42 unit/L LAB CHEMISTRY METHOD 09/12/2024 9:40 AM EDT [facility] Blood Venous blood specimen / Unknown 09/12/2024 6:59 AM EDT 09/12/2024 8:57 AM EDT us Aleksander Welch MD LAB BLOOD ORDERABLES Final Resul t Performing Organization Address [facility] de Phone Number [facility] [address] [place] [address], [place] [phone] * Prothrombin time with INR (09/12/2024 6:59 AM EDT) [facility] Protime 12.8 10.6 - 13.9 sec LAB COAGULATION METHOD 09/12/2024 9:24 AM EDT [facility] INR 1.0 LAB COAGULATION METHOD 09/12/2024 9:24 AM EDT [facility] Blood Venous blood specimen / Unknown 09/12/2024 6:59 AM EDT 09/12/2024 8:57 AM EDT us Aleksander Welch MD LAB BLOOD ORDERABLES Final Resul t Performing Organization Address [facility] Co de Phone Number [facility] [address] [place] [address], [place] [phone] * Hepatitis B surface antigen with reflex to confirmation (09/12/2024 6:59 AM EDT) [facility] Hepatitis B Surface Ag Negative Negative LAB CHEMISTRY METHOD 09/12/2024 11:35 AM EDT [facility] Blood Venous blood specimen / Unknown 09/12/2024 6:59 AM EDT 09/12/2024 8:57 AM EDT [facility] - 09/12/2024 11:35 AM EDT Over the counter supplements containing high doses of biotin may interfere with this assay. If interference is suspected, patients shoud be retested after refraining from biotin supplements for 72 hours. us Aleksander Welch MD LAB BLOOD ORDERABLES Final Resul t Performing Organization Address [facility] de Phone Number [facility] [address] [place] [address], [place] [phone] * (ABNORMAL) Hepatitis B surface antibody (09/12/2024 6:59 AM EDT) Hepatitis B Surface Ab Positive (A) Negative LAB CHEMISTRY METHOD 09/12/2024 11:23 AM EDT [facility] Hepatitis B Surface Ab Quantitative >1,000.0 mIU/mL LAB CHEMISTRY METHOD 09/12/2024 11:23 AM EDT [facility] Blood Venous blood specimen / Unknown 09/12/2024 6:59 AM EDT 09/12/2024 8:57 AM EDT [facility] - 09/12/2024 11:23 AM EDT >=10 mIU/mL is considered to be consistent with immunity. us Aleksander Welch MD LAB BLOOD ORDERABLES Final Resul t Performing Organization Address [facility] de Phone Number [facility] [address] [place] [address], [place] [phone] * Bilirubin, total and direct (09/12/2024 6:59 AM EDT) Total Bilirubin 0.3 0.0 - 1.4 mg/dL LAB CHEMISTRY METHOD 09/12/2024 9:40 AM EDT [facility] Bilirubin, Direct 0.1 0.0 - 0.3 mg/dL LAB CHEMISTRY METHOD 09/12/2024 9:40 AM EDT [facility] Bilirubin, Indirect 0.2 0.0 - 1.1 mg/dL LAB CHEMISTRY METHOD 09/12/2024 9:40 AM EDT [facility] Blood Venous blood specimen / Unknown 09/12/2024 6:59 AM EDT 09/12/2024 8:57 AM EDT us Aleksander Welch MD LAB BLOOD ORDERABLES Final Resul t Performing Organization Address City/[facility]/ZIP Co de Phone Number [facility] [address] [place] [address], [place] [phone] * Albumin (09/12/2024 6:59 AM EDT) Albumin 3.7 3.2 - 5.0 g/dL LAB CHEMISTRY METHOD 09/12/2024 9:40 AM EDT [facility] Blood Venous blood specimen / Unknown 09/12/2024 6:59 AM EDT 09/12/2024 8:57 AM EDT us Aleksander Welch MD LAB BLOOD ORDERABLES Final Resul t Performing Organization Address [facility]/ZIP Co de Phone Number [facility] [address] [place] [address], [place] [phone] documented in this encounter Visit Diagnoses Diagnosis Chronic viral hepatitis C (CMS/HCC V24, CMS/HCC V28) Chronic hepatitis C without mention of hepatic coma documented in this encounter Care Teams Electronic Equipment Installer Relationship Specialty Start Date End Date Aleksander Welch MD [address] [place] [address] Dr Rajani Oseguera [place] PCP - General Internal Medicine 07/11/24 documented as of this encounter
--- OUTSIDE RECORDS SUMMARY | 2025-02-27 10:12 | XMS_ITS | Encounter Summary ---
Author Organization [facility] Address [address] [place] [address] Care Team Providers Care Synchro Assembler Name Role Phone Marcus Hudson MD Primary Care Provider [phone] Azalea Ann PA-C Primary Care Provider [phone] Encounter Details Date Type Department Care Team (Late st Contact Info) Description 01/14/2020 Lab Requisition [facility] Pathology & Laboratory Medicine - [facility] [address] [place], [place] [id number] Outr Resulting Lab, Provider Social History Tobacco [...] Name Priority Date/Time Associated Diagnosis Comments URINE [id number] NE RATIO (ACR) Routine 01/14/2020 14:04 EDT documented in this encounter Results * (ABNORMAL) ALBUMIN, URINE (01/14/2020 14:04 EDT) Albumin, Urine 12.3 See Note mg/dL 2019 23:32 EDT [facility] Comment: NOTE: Reference range not established Creatinine, Urine 64.0 See Note mg/dL 01/14/2020 23:32 EDT [facility] Comment: NOTE: Reference range not established Lab Urine Albumin to Creatinine Ratio 192(H) <30 ug/mg Creatinine 01/14/2020 23:32 EDT [facility] Comment: Urine Albumin/Creatinine Ratio: Normal: <30 ug/mg Creatinine Moderately increased albuminuria: 30-300 ug/mg Creatinine Althea increased albuminuria: >300 ug/mg Creatinine Urine URINE SPECIMEN OBTAINED BY CLEAN CATCH PROCEDURE / Unknown 01/14/2020 14:04 EDT 01/14/2020 22:19 EDT us Provider Outr Resulting Lab CHEMISTRY & BLOOD GA S ORDERABLES Final Result [facility] [address] [place] [address] documented in this encounter Visit Diagnoses Not on filedocumented in this encounter Care Teams Synchro Assembler Relationship Specialty Start Date End Date Marcus Hudson MD [address] [place] [address] PCP - General 05/19/09 09/20/21 Azalea Ann PA-C [address] [place] [address] PCP - General 09/21/21 documented as of this encounter
--- OUTSIDE RECORDS SUMMARY | 2025-02-27 10:12 | XMS_ITS | Encounter Summary ---
Author Organization [facility] Address [address] [place] [address] Care Team Providers Care Microbiology Quality Control Technician Name Role Phone Marcus Hudson MD Primary Care Provider [phone] Azalea Ann PA-C Primary Care Provider [phone] Encounter Details Date Type Department Care Team (Late st Contact Info) Description 08/12/2019 Lab Requisition [facility] Pathology & Laboratory Medicine - [facility] [address] [place] [address] Unknown, Provider, Social History Tobacco Use Types [...] Name Priority Date/Time Associated Diagnosis Comments URINE [id number] NE RATIO (ACR) Routine 08/12/2019 13:32 EDT documented in this encounter Results * (ABNORMAL) ALBUMIN, URINE (08/12/2019 13:32 EDT) Albumin, Urine 22.2 See Note mg/dL 2019 22:09 EDT [facility] Comment: NOTE: Reference range not established Creatinine, Urine 28.9 See Note mg/dL 08/12/2019 22:09 EDT [facility] Comment: NOTE: Reference range not established Lab Urine Albumin to Creatinine Ratio 768(H) <30 ug/mg Creatinine 08/12/2019 22:09 EDT [facility] Comment: Urine Albumin/Creatinine Ratio: Normal: <30 ug/mg Creatinine Moderately increased albuminuria: 30-300 ug/mg Creatinine Althea increased albuminuria: >300 ug/mg Creatinine Urine URINE SPECIMEN OBTAINED BY CLEAN CATCH PROCEDURE / Unknown 08/12/2019 13:32 EDT 08/12/2019 21:30 EDT us Provider Unknown CHEMISTRY & BLOOD GAS ORDERA BLES Final Result [facility] [address] [place] [address] documented in this encounter Visit Diagnoses Not on filedocumented in this encounter Care Teams Microbiology Quality Control Technician Relationship Specialty Start Date End Date Marcus Hudson MD [address] [place] [address] PCP - General 05/19/09 09/20/21 Azalea Ann PA-C [address] [place] [address] PCP - General 09/21/21 documented as of this encounter
--- OUTSIDE RECORDS SUMMARY | 2025-02-27 10:13 | XMS_ITS | Encounter Summary ---
Author Organization [employer] [facility] Address [address] [place] [address] Care Team Providers Care Legislative Assistant Name Role Phone Aleksander Welch MD Primary Care Provider [phone] Encounter Details Date Type Department Care Team (Late st Contact Info) Description 07/12/[address] [facility] - Main Lab [address] [place] [address] Aleksander Welch MD [address] [place] [address] [address] [place] Urinary tract infection, site not specified Social [...] reflex microscopic (07/12/2024 6:58 PM EDT) Specific [place] Urine 1.022 1.003 - 1.030 LAB URINALYSIS - AUTOMATED METHOD 07/12/2024 9:16 PM EDT [facility] pH, Urine 5.5 5.0 - 8.0 pH LAB URINALYSIS - AUTOMATED METHOD 07/12/2024 9:[address] [facility] Leukocytes, Urine Moderate(A) Negative LAB URINALYSIS - AUTOMATED METHOD 07/12/2024 9:[address] [facility] Nitrite, Urine Negative Negative LAB URINALYSIS - AUTOMATED METHOD 07/12/2024 9:[address] [facility] Protein, Urine 30(A) <=Trace mg/dL LAB URINALYSIS - AUTOMATED METHOD 07/12/2024 9:[address] [facility] Glucose, Urine 500(A) Negative mg/dL LAB URINALYSIS - AUTOMATED METHOD 07/12/2024 9:[address] [facility] Ketones, Urine Negative Negative mg/dL LAB URINALYSIS - AUTOMATED METHOD 07/12/2024 9:[address] [facility] Urobilinogen , Urine 1.0 0.2 - 1.0 mg/dL LAB URINALYSIS - AUTOMATED METHOD 07/12/2024 9:[address] [facility] Bilirubin, Urine Negative Negative LAB URINALYSIS - AUTOMATED METHOD 07/12/2024 9:[address] [facility] Blood, Urine Small(A) Negative LAB URINALYSIS - AUTOMATED METHOD 07/12/2024 9:[address] [facility] RBC, Urine 10(H) 0 - 4 /HPF 07/12/2024 9:[address] [facility] WBC, Urine >100(H) 0 - 4 /HPF 07/12/2024 9:[address] [facility] Squamous Epithelial, Urine 2 0 - 60 /LPF 07/12/2024 9:[address] [facility] Bacteria, Urine Negative Negative /HPF 07/12/2024 9:[address] [facility] Hyaline Casts, Urine 0 0 - 3 /LPF 07/12/2024 9:16 PM EDT [facility] Yeast, Urine Present(A) None /HPF 07/12/2024 9:16 PM EDT [facility] Urine Urine specimen obtained by clean catch procedure / Unknown 07/12/2024 6:58 PM EDT 07/12/2024 8:54 PM EDT us Aleksander Welch MD LAB URINE ORDERABLES Final Resul t Performing Organization Address City/[facility]/ZIP Co de Phone Number [facility] [address] [place] [address], [place] [phone] * Reyes urine culture tube (07/12/2024 6:58 PM EDT) Extra Tube Hold for add-ons. 07/12/2024 10:03 PM EDT [facility] Comment:Auto resulted. Urine Urine specimen obtained by clean catch procedure / Unknown 07/12/2024 6:58 PM EDT 07/12/2024 8:54 PM EDT us Aleksander Welch MD LAB URINE ORDERABLES Final Resul t Performing Organization Address City/[facility] Co de Phone Number [facility] [address] [place] [address], [place] [phone] documented in this encounter Visit Diagnoses Diagnosis Urinary tract infection, site not specified documented in this encounter Care Teams Legislative Assistant Relationship Specialty Start Date End Date Aleksander Welch MD [address] [place] [address] Dr Rajani [address] Oseguera PCP - General Internal Medicine 07/11/24 documented as of this encounter
--- OUTSIDE RECORDS SUMMARY | 2025-02-27 10:13 | XMS_ITS | Encounter Summary ---
Author Organization [facility] Address [address] [place] [address] Care Team Providers Care Director Translational Name Role Phone Aleksander Welch MD Primary Care Provider [phone] Encounter Details Date Type Department Care Team (Late st Contact Info) Description 06/25/2024 Lab Requisition [facility] - Main Lab [address] [place] [address] Aleksander Welch MD [address] [place] [address] [address] [place] Bipolar disorder, unspecified (CMS/HCC V24, CMS/[facility] V28) Social History Tobacco Use Types Packs/Day [...] 06/25/2024 6:32 AM EST Bipolar disorder, unspecified ([facility]) documented in this encounter Results * (ABNORMAL) Hemoglobin A1c (06/25/2024 6:32 AM EST) Hemoglobin A1C 7.9(H) <6.5 % LAB CHEMISTRY METHOD 06/25/2024 11:00 AM EST [facility] Mean Bld Glu Estim. 180 mg/dL LAB CHEMISTRY METHOD 06/25/2024 11:00 AM EST [facility] Blood Venous blood specimen / Unknown 06/25/2024 6:32 AM EST 06/25/2024 7:49 AM EST us Aleksander Welch MD LAB BLOOD ORDERABLES Final Resul t [facility] [address] [place] [address], documented in this encounter Visit Diagnoses Diagnosis Bipolar disorder, unspecified (CMS/[facility] V24, CMS/HCC V28) Bipolar disorder, unspecified documented in this encounter Care Teams Director Translational Relationship Specialty Start Date End Date Aleksander Welch MD [address] [place] [address] Dr [address] [place], [place] PCP - General Internal Medicine 07/11/24 documented as of this encounter
--- OUTSIDE RECORDS SUMMARY | 2025-02-27 10:13 | XMS_ITS | Encounter Summary ---
Author Organization [facility] Address [address] [place] [address] Care Team Providers Care Testing Tech Name Role Phone Marcus Hudson MD Primary Care Provider [phone] Azalea Ann PA-C Primary Care Provider [phone] Encounter Details Date Type Department Care Team (Late st Contact Info) Description 08/16/2021 Lab Requisition [facility] Pathology & Laboratory Medicine - [facility] [address] [place], [place] [address] Outr Resulting Lab, Provider Social History Tobacco [...] A1c 7.4(H) <5.7 % 08/18/2021 20:[address] [facility] Comment: Glycemic Status References: Normal: <5.7% Pre-Diabetes: 5.7% - 6.4% Diagnostic of Diabetes: > or = 6.5% (if confirmed) Est Avg Glucose 166 mg/dL 2 20:[address] [facility] Comment:The eAG represents t he A1c result expressed as average glucose in mg/dL. Blood VENOUS BLOOD / Unknown 08/16/2021 12:39 EDT 08/16/2021 21:30 EDT us Provider Outr Resulting Lab CHEMISTRY & BLOOD GA S ORDERABLES Final Result [facility] [address] [place] [address] documented in this encounter Visit Diagnoses Not on filedocumented in this encounter Care Teams Testing Tech Relationship Specialty Start Date End Date Marcus Hudson MD [address] [place] [address] PCP - General 05/19/09 09/20/21 Azalea Ann PA-C [address] [place] [address] PCP - General 09/21/21 documented as of this encounter
--- OUTSIDE RECORDS SUMMARY | 2025-02-27 10:13 | XMS_ITS | Encounter Summary ---
Author Organization [facility] Address [address] [place] [address] Care Team Providers Care Coyote Hunter Name Role Phone Marcus Hudson MD Primary Care Provider [phone] Azalea Ann PA-C Primary Care Provider [phone] Encounter Details Date Type Department Care Team (Late st Contact Info) Description 01/14/2020 Lab Requisition [facility] Pathology & Laboratory Medicine - [facility] [address] [place], [place] [id number] Outr Resulting Lab, Provider Social History Tobacco [...] A1c 9.2(H) <5.7 % 01/15/2020 10:44 EDT [facility] Comment: Glycemic Status References: [...] Avg Glucose 217 mg/dL 0 10:44 EDT [facility] Comment:The eAG represents t he A1c result expressed as average glucose in mg/dL. Blood VENOUS BLOOD / Unknown 01/14/2020 14:04 EDT 01/14/2020 22:25 EDT us Provider Outr Resulting Lab CHEMISTRY & BLOOD GA S ORDERABLES Final Result Performing Organization Address City/[facility] Co de Phone Number [facility] [address] [place] [address] documented in this encounter Visit Diagnoses Not on filedocumented in this encounter Care Teams Coyote Hunter Relationship Specialty Start Date End Date Marcus Hudson MD [address] [place] [address] PCP - General 05/19/09 09/20/21 Azalea Ann PA-C [address] [place] [address] PCP - General 09/21/21 documented as of this encounter
--- OUTSIDE RECORDS SUMMARY | 2025-02-27 10:13 | XMS_ITS | Clinical Summary ---
Author Organization [facility] Address [address] [address] Phone Care Team Providers Care It Quality Assurance Analyst Name Role Phone Unavailable Primary Care Provider [...] Office Visit [facility] [address] [address] Chinmay Saenz MD Chronic kidney disease, stage 2 (mild) (Primary Dx); Type 2 diabetes mellitus with diabetic chronic kidney disease (HCC) from Last 3 Months Family History Relation [...] Office Visit [facility] [address] [address] Dina Hicks ARNP [address] [phone] Health Maintenance Due Date Last Done Comments [...] (#1) 2024 Diabetes: Hemoglobin A1C 01/20/2025 025, 10/20/2024, 07/11/2024, Additional history exists Procedures Procedure Name Priority Date/Time Associated Diagnosis Comments ALT EXT LABS Routine 01/02/2025 from Last 3 Months Results * (ABNORMAL) [...] 27 22 - 30 mmol/L eGFR Non-Afr Samoan 83 01/02/2025 Historical Provider LAB BLOOD ORDERABLES Kena l Result from Last 3 Months Insurance [facility]
--- OUTSIDE RECORDS SUMMARY | 2025-02-27 10:13 | XMS_ITS | Encounter Summary ---
Author Organization [facility] Address [address] [place] [address] Care Team Providers Care Venetian Blind Cleaner Name Role Phone Azalea Ann PA-C Primary Care Provider [phone] Encounter Details Date Type Department Care Team (Late st Contact Info) Description 08/07/2022 Lab Requisition [facility] Pathology & Laboratory Medicine - [facility] [address] [place], [place] [address] Outr Resulting Lab, Provider Social History Tobacco [...] RNA Qualitative Undetected Undetected 08/09/2022 12:03 EDT [facility] Blood VENOUS BLOOD / Unknown 08/07/2022 15:01 EDT 08/07/2022 21:55 EDT Narrative [facility] - 08/09/2022 12:03 EDT The quantification range of this assay is 15 IU/mL to 100,000,000 IU/mL. Testing was performed using the Joanna HCV test ([employer] with the joanna [id number] System. us Provider Outr Resulting Lab CHEMISTRY & BLOOD GA S ORDERABLES Final Result Performing Organization Address [facility] de Phone Number [facility] [address] [place] [address] * PSA TOTAL, DIAGNOSTIC (08/07/2022 15:01 EDT) PSA 0.2 <=3.5 ng/mL 08/07/2022 23:34 EDT [facility] Blood VENOUS BLOOD / Unknown 08/07/2022 15:01 EDT 08/07/2022 21:49 EDT Narrative [facility] - 08/07/2022 23:34 EDT NOTE: Serum PSA concentration should not be interpreted as absolute evidence for the presence or absence of malignant disease. Assayed on Siemens ADVIA Centaur XPT using chemiluminescent technology. Values obtained by using different assay methods cannot be used interchangeably. Provider Outr Resulting Lab CHEMISTRY & BLOOD GA S ORDERABLES Final Result Performing Organization Address [facility] de Phone Number [facility] [address] [place] [address] * (ABNORMAL) HEMOGLOBIN A1C (08/07/2022 15:01 EDT) Hemoglobin A1c 7.1(H) <5.7 % 08/07/2022 23:53 EDT [facility] Comment: Glycemic Status References: Normal: <5.7% Pre-Diabetes: 5.7% - 6.4% Diagnostic of Diabetes: > or = 6.5% (if confirmed) Est Avg Glucose 157 mg/dL 23:53 EDT [facility] Comment:The eAG represents t he A1c result expressed as average glucose in mg/dL. Blood VENOUS BLOOD / Unknown 08/07/2022 15:01 EDT 08/07/2022 21:49 EDT us Provider Outr Resulting Lab CHEMISTRY & BLOOD GA S ORDERABLES Final Result Performing Organization Address City/State/[facility] Co de Phone Number [facility] [address] [place] [address] documented in this encounter Visit Diagnoses Not on filedocumented in this encounter Care Teams Venetian Blind Cleaner Relationship Specialty Start Date End Date Azalea Ann PA-C [address] [place] [address] PCP - General 09/21/21 documented as of this encounter
--- OUTSIDE RECORDS SUMMARY | 2025-02-27 10:13 | XMS_ITS | Encounter Summary ---
Author Organization [facility] Address [address] [place] [address] Care Team Providers Care Torch Straightener Name Role Phone Aleksander Welch MD Primary Care Provider [phone] Encounter Details Date Type Department Care Team (Late st Contact Info) Description 07/11/2024 Lab Requisition [facility] - Main Lab [address] [facility] [employer] [place] [address] Aleksander Welch MD [address] [place] [address] [address] [place] Type 2 diabetes mellitus without complications (CMS/HCC [...] V28) documented in this encounter Care Teams Torch Straightener Relationship Specialty Start Date End Date Aleksander Welch MD [address] [place] [address] Dr [address] [place] PCP - General Internal Medicine 07/11/24 documented as of this encounter
--- OUTSIDE RECORDS SUMMARY | 2025-02-27 10:13 | XMS_ITS | Encounter Summary ---
Author Organization [facility] Address [address] [place] [address] Care Team Providers Care Special Day Class Teacher Name Role Phone Marcus Hudson MD Primary Care Provider [phone] Azalea Ann PA-C Primary Care Provider [phone] Encounter Details Date Type Department Care Team (Late st Contact Info) Description 04/15/2020 Lab Requisition [facility] Pathology & Laboratory Medicine - [facility] [address] [place], [place] [phone] Outr Resulting Lab, Provider Social History Tobacco [...] A1c 8.3(H) <5.7 % 04/16/2020 7:49 EST [facility] Comment: Glycemic Status [...] Avg Glucose 192 mg/dL 0 7:49 EST [facility] Comment:The eAG represents t he A1c result expressed as average glucose in mg/dL. Blood VENOUS BLOOD / Unknown 04/15/2020 9:17 EST 04/15/2020 18:14 EST us Provider Outr Resulting Lab CHEMISTRY & BLOOD GA S ORDERABLES Final Result Performing Organization Address City/State/[facility] Co de Phone Number [facility] [address] [place] [address] documented in this encounter Visit Diagnoses Not on filedocumented in this encounter Care Teams Special Day Class Teacher Relationship Specialty Start Date End Date Marcus Hudson MD [address] [place], [place] [phone] PCP - General 05/19/09 09/20/21 Azalea Ann PA-C [address] [place] [address] PCP - General 09/21/21 documented as of this encounter
--- OUTSIDE RECORDS SUMMARY | 2025-02-27 10:13 | XMS_ITS | Encounter Summary ---
Author Organization [facility] Address [address] [place] [address] Care Team Providers Care Invasive Cardiovascular Technologist Name Role Phone Aleksander Welch MD Primary Care Provider Encounter Details Date Type Department Care Team (Late st Contact Info) Description 02/03/2025 Lab Requisition [facility] - Main Lab [address] [place] [phone] Aleksander Welch MD [address] [place] [address] Dr [address] [place], [place] Encounter for other specified special examinations Social [...] EDT Encounter for other specified special examinations documented in this encounter Results * Vitamin D 25 hydroxy (02/03/2025 7:06 AM EDT) Vit D, 25-Hydroxy 32.9 30.0 - 80.0 ng/mL LAB CHEMISTRY METHOD 02/03/2025 9:15 AM EDT [facility] Blood Venous blood specimen / Unknown 02/03/2025 7:06 AM EDT 02/03/2025 7:54 AM EDT us Aleksander Welch MD LAB BLOOD ORDERABLES Final Resul t [facility] [address] [place], [place] [address] [phone] documented in this encounter Visit Diagnoses Diagnosis Encounter for other specified special examinations documented in this encounter Care Teams Invasive Cardiovascular Technologist Relationship Specialty Start Date End Date Aleksander Welch MD [address] [place] [address] Dr [address] ARTURO Oseguera PCP - General Internal Medicine 07/11/24 documented as of this encounter
--- OUTSIDE RECORDS SUMMARY | 2025-02-27 10:13 | XMS_ITS | Clinical Summary ---
Author Organization [facility] Address [address] [place] [address] Care Team Providers Care Trauma Doctor Name Role Phone Azalea Ann PA-C Primary [...] Comments Hepatitis B Vaccine (1 of - 19+ 3-dose series) 09/04/1986 COVID-19 Vaccine (2023-2 5 [...] RNA Qualitative Undetected Undetected 08/09/2022 12:03 EDT [facility] Blood VENOUS BLOOD / Unknown 08/07/2022 15:01 EDT 08/07/2022 21:55 EDT Narrative [facility] - 08/09/2022 12:03 EDT The quantification range of this assay is 15 IU/mL to 100,000,000 IU/mL. Testing was performed using the Joanna HCV test ([employer] with the joanna [id number] System. us Provider Outr Resulting Lab CHEMISTRY & BLOOD GA S ORDERABLES Final Result [facility] [address] [place] [address] from Last 3 Months or Most Recently Relevant to Health Maintenance Insurance [place] Care Teams Trauma Doctor Relationship Specialty Start Date End Date Azalea Ann PA-C [address] [place] [address] PCP - General 09/21/21
--- OUTSIDE RECORDS SUMMARY | 2025-02-27 10:13 | XMS_ITS | Encounter Summary ---
Author Organization [facility] Address [address] [place] [address] Care Team Providers Care Work Force Advisor Name Role Phone Aleksander Welch MD Primary Care Provider [phone] Encounter Details Date Type Department Care Team (Late st Contact Info) Description 07/11/2024 Lab Requisition [facility] - Main Lab [address] [facility] [place] [address] Aleksander Welch MD [address] [place] [address] [address] [place] Type 1 diabetes mellitus with diabetic polyneuropathy [...] Type 1 diabetes mellitus with diabetic polyneuropathy ([facility]/HCC) HEMOGLOBIN A1C Routine 07/11/2024 7:09 AM EDT Type 1 diabetes mellitus with diabetic polyneuropathy ([facility]) documented in this encounter Results * (ABNORMAL) Hemoglobin A1c (07/11/2024 7:09 AM EDT) Hemoglobin A1C 7.4(H) <6.5 % LAB CHEMISTRY METHOD 07/11/2024 8:54 AM EDT [facility] Mean Bld Glu Estim. 166 mg/dL LAB CHEMISTRY METHOD 07/11/2024 8:54 AM T [facility] Blood Venous blood specimen / Unknown 07/11/2024 7:09 AM EDT 07/11/2024 7:44 AM EDT us Aleksander Welch MD LAB BLOOD ORDERABLES Final Resul t [facility] [address] [place] [address], [place] [phone] * (ABNORMAL) Complete blood count (07/11/2024 7:09 AM EDT) [facility] WBC 5.6 4.8 - 10.8 K/mcL LAB HEMETOLOGY METHOD 07/11/2024 8:02 AM EDT [facility] RBC 3.80(L) 4.50 - 5.50 M/mcL LAB [facility] Hemoglobin 11.1(L) 13.5 - 17.5 g/dL LAB HEMETOLOGY METHOD 07/11/2024 8:02 AM [facility] Hematocrit 33.9(L) 42.0 - 54.0 % LAB HEMETOLOGY METHOD 07/11/2024 8:02 AM [facility] MCV 90.2 79.0 - 98.0 FL LAB [facility]EMETOLOGY METHOD [facility]24 [facility] MCH 29.5 27.0 - 32.0 pcg LAB HEMETOLOGY METHOD 07/11/2024 8:02 AM [facility] MCHC 32.7 32.0 - 37.0 g/dL LAB HEMETOLOGY METHOD 07/11/2024 8:02 AM [facility] RDW 13.4 11.0 - 15.0 % LAB HEMETOLOGY METHOD 07/11/2024 8:02 AM [facility] Platelets 231 130 - 400 K/mcL LAB HEMETOLOGY METHOD 07/11/2024 8:02 AM EDT [facility] MPV 10.2 7.0 - 11.0 FL LAB HEMETOLOGY METHOD 07/11/2024 8:02 AM EDT [facility] NRBC 0.0 <1.0 % LAB HEMETOLOGY METHOD 07/11/2024 8:02 AM EDT [facility] NRBC Absolute 0.00 <0.10 K/mcL LAB HEMETOLOGY METHOD 07/11/2024 8:02 AM EDT [facility] Blood Venous blood specimen / Unknown 07/11/2024 7:09 AM EDT 07/11/2024 7:44 AM EDT us Aleksander Welch MD LAB BLOOD ORDERABLES Final Resul t [facility] [address] [place] [address], documented in this encounter Visit Diagnoses Diagnosis Type 1 diabetes mellitus with diabetic polyneuropathy (CMS/HCC V24, CMS/HCC V28) documented in this encounter Care Teams Work Force Advisor Relationship Specialty Start Date End Date Aleksander Welch MD [address] [place] [address] Dr [address] [place], [place] PCP - General Internal Medicine 07/11/24 documented as of this encounter
--- OUTSIDE RECORDS SUMMARY | 2025-02-27 10:13 | XMS_ITS | Encounter Summary ---
Author Organization [facility] Address [address] [place] [address] Care Team Providers Care Scientific Linguist Name Role Phone Azalea Ann PA-C Primary Care Provider [phone] Encounter Details Date Type Department Care Team (Late st Contact Info) Description 10/17/2021 Lab Requisition [facility] Pathology & Laboratory Medicine - [facility] [address] [place] [address] Julio C Isabel MD [address] [place] [address] Encounter for other general examination Social History [...] management options, if applicable. 10/21/2021 19:10 EDT [facility] Final Diagnosis A. ESOPHAGUS, DISTAL, BIOPSY: - Gastric mucosa showing reactive (chemical) gastropathy. B. COLON, SIGMOID, POLYPS X 2, BIOPSIES: - Hyperplastic polyps. 10/21/2021 19:10 [facility] Attestation By the signature below, the attending physician certifies that they have 1) personally conducted a gross and/or microscopic examination of the described specimen(s), and/or personally interpreted the results of laboratory testing of the described specimen(s), and 2) personally rendered or confirmed the above diagnosis. 10/21/2021 19:10 [facility] at 1910 EDT Clinical History Chronic nausea; heartburn 10/21/2021 19:10 [facility] Gross Description A. Received in [...] B1. GERRY LIU(ASCP) 10/19/2021 14:33 10/21/2021 19:10 [facility] Performing Lab [facility] 10/21/2021 19:10 [facility] Scanned Images 10/21/2021 19:10 [facility] Tissue ESOPHAGEAL STRUCTURE / Unknown 10/14/2021 14:13 EDT 10/19/2021 8:53 EDT Tissue specimen (specimen) POLYP OF COLON / Unknown 10/14/2021 14:13 EDT 10/19/2021 8:53 EDT us Julio C Isabel MD PATHOLOGY ORDERABLES Final Re sult [facility] [address] [place] [address] documented in this encounter Visit Diagnoses Diagnosis Encounter for other general examination documented in this encounter Care Teams Scientific Linguist Relationship Specialty Start Date End Date Azalea Ann PA-C [address] [place] [address] PCP - General 09/21/21 documented as of this encounter
--- OUTSIDE RECORDS SUMMARY | 2025-02-27 10:13 | XMS_ITS | Encounter Summary ---
Author Organization [employer] Address [address] [place] [address] Care Team Providers Care Data Warehouse Developer Name Role Phone Aleksander Welch MD Primary Care Provider [phone] Encounter Details Date Type Department Care Team (Late st Contact Info) Description 03/26/2024 Lab Requisition [facility] - Main Lab 299 [facility] [place] [address] Aleksander Welch MD [address] [place] [address] Dr [address] ARTURO Oseguera Hemiplegia and [...] CBC auto differential (03/26/2024 6:55 AM EST) [facility] WBC 7.2 4.8 - 10.8 K/mcL LAB HEMETOLOGY METHOD 03/26/2024 9:47 AM [facility] RBC 3.20(L) 4.50 - 5.50 M/mcL LAB HEMETOLOGY METHOD 03/26/2024 9:47 AM [facility] Hemoglobin 10.0(L) 13.5 - 17.5 g/dL LAB HEMETOLOGY METHOD 03/26/2024 9:47 AM [facility] LAB Hematocrit 30.5(L) 42.0 - 54.0 % LAB HEMETOLOGY METHOD 03/26/2024 9:47 AM [facility] MCV 94.1 79.0 - 98.0 FL LAB HEMETOLOGY METHOD 03/26/2024 9:47 AM [facility] LAB MCH 30.9 27.0 - 32.0 pcg LAB HEMETOLOGY METHOD 03/26/2024 9:47 AM [facility] LAB MCHC 32.8 32.0 - 37.0 g/dL LAB HEMETOLOGY METHOD 03/26/2024 9:47 AM [facility] RDW 12.3 11.0 - 15.0 % LAB HEMETOLOGY METHOD 03/26/2024 9:47 AM [facility] LAB Platelets 361 130 - 400 K/mcL LAB HEMETOLOGY METHOD 03/26/2024 9:47 AM [facility] MPV 10.2 7.0 - 11.0 FL LAB HEMETOLOGY METHOD 03/26/2024 9:47 AM [facility] NRBC 0.0 <1.0 % LAB HEMETOLOGY METHOD 03/26/2024 9:47 AM [facility] NRBC Absolute 0.00 <0.10 K/mcL LAB HEMETOLOGY METHOD 03/26/2024 9:47 AM [facility] Neutrophils Relative 68.9 % LAB HEMETOLOGY METHOD 03/26/2024 9:47 AM [facility] Lymphocytes Relative 19.2 % LAB HEMETOLOGY METHOD 03/26/2024 9:47 AM [facility] Monocytes Relative 5.7 % LAB HEMETOLOGY METHOD 03/26/2024 9:47 AM [facility] Eosinophils Relative 4.3 % LAB HEMETOLOGY METHOD 03/26/2024 9:47 AM [facility] Basophils Relative 1.3 % LAB HEMETOLOGY METHOD 03/26/2024 9:47 AM [facility] Immature Granulocytes Relative 0.6 % LAB HEMETOLOGY METHOD 03/26/2024 9:47 AM [facility] Neutrophils Absolute 4.97 1.50 - 7.00 K/mcL LAB HEMETOLOGY METHOD 03/26/2024 9:47 AM [facility] Lymphocytes Absolute 1.38 1.00 - 5.00 K/mcL LAB HEMETOLOGY METHOD 03/26/2024 9:47 AM [facility] Monocytes Absolute 0.41 0.20 - 1.00 K/mcL LAB HEMETOLOGY METHOD 03/26/2024 9:47 AM [facility] Eosinophils Absolute 0.31 0.00 - 0.50 K/mcL LAB HEMETOLOGY METHOD 03/26/2024 9:47 AM EST [facility] Basophils Absolute 0.09 0.00 - 0.20 K/[facility] LAB HEMETOLOGY METHOD 03/26/2024 9:47 AM EST [facility] LAB Immature Granulocytes Absolute 0.04(H) 0.00 - 0.03 K/[facility] LAB HEMETOLOGY METHOD 03/26/2024 9:47 AM EST [facility] LAB Blood Venous blood specimen / Unknown 03/26/2024 6:55 AM EST 03/26/2024 8:55 AM EST us Aleksander Welch MD LAB BLOOD ORDERABLES Final Resul t Performing Organization Address [facility] Co de Phone Number [facility] LAB [address] [place] [address], [place] [phone] * Prostate specific antigen screen (03/26/2024 6:55 AM EST) PSA 0.08 0.00 - 4.00 ng/mL LAB CHEMISTRY METHOD 03/26/2024 11:33 AM EST [facility] Blood Venous blood specimen / Unknown 03/26/2024 6:55 AM EST 03/26/2024 8:55 AM EST Narrative [facility] - 03/26/2024 11:33 AM EST The Siemens Advia Centaur Chemiluminescent Immunoassay is used. Results obtained with different assay methods or kits cannot be used interchangeably. Results cannot be interpreted as absolute evidence of the presence or absence of malignant disease. us Aleksander Welch MD LAB BLOOD ORDERABLES Final Resul t Performing Organization Address City/[facility]/ZIP Co de Phone Number [facility] [address] [place] [address], [place] [phone] * Thyroid stimulating hormone (03/26/2024 6:55 AM EST) TSH 3.31 0.40 - 4.00 mcIU/mL LAB CHEMISTRY METHOD 03/26/2024 11:33 AM EST [facility] Blood Venous blood specimen / Unknown 03/26/2024 6:55 AM EST 03/26/2024 8:55 AM EST us Aleksander Welch MD LAB BLOOD ORDERABLES Final Resul t Performing Organization Address City/[facility]/ZIP Co de Phone Number [facility] [address] [place] [address], [place] [phone] * Hemoglobin A1c (03/26/2024 6:55 AM EST) Hemoglobin A1C 6.4 <6.5 % LAB CHEMISTRY METHOD 03/26/2024 12:45 PM EST [facility] Mean Bld Glu Estim. 137 mg/dL LAB CHEMISTRY METHOD 03/26/2024 12:45 PM EST [facility] Blood Venous blood specimen / Unknown 03/26/2024 6:55 AM EST 03/26/2024 8:55 AM EST us Aleksander Welch MD LAB BLOOD ORDERABLES Final Resul t Performing Organization Address [facility]/ZIP Co de Phone Number [facility] [address] [place] [address], [place] [phone] * Lipid panel with reflex to direct LDL (03/26/2024 6:55 AM EST) Cholesterol 173 0 - 200 mg/dL LAB CHEMISTRY METHOD 03/26/2024 9:47 AM EST [facility] Triglycerides 55 0 - 150 mg/dL LAB CHEMISTRY METHOD 03/26/2024 9:47 AM EST [facility] HDL 75 >=40 mg/dL LAB CHEMISTRY METHOD 03/26/2024 9:47 AM EST [facility] LDL Calculated 87 0 - 100 mg/dL LAB CHEMISTRY METHOD 03/26/2024 9:47 AM [facility] VLDL Cholesterol Tim 11 mg/dL LAB CHEMISTRY METHOD 03/26/2024 9:47 AM [facility] Non HDL Chol. (LDL+VLDL) 98 <145 mg/dL LAB CHEMISTRY METHOD 03/26/2024 9:47 AM [facility] Chol/HDL Ratio 2.3 0.0 - 4.4 LAB CHEMISTRY METHOD 03/26/2024 9:47 AM [facility] Blood Venous blood specimen / Unknown 03/26/2024 6:55 AM EST 03/26/2024 8:55 AM EST us Aleksander Welch MD LAB BLOOD ORDERABLES Final Resul t [facility] [address] [place] [address], * (ABNORMAL) Comprehensive metabolic panel (03/26/2024 6:55 AM EST) Sodium 136 133 - 145 mmol/L LAB CHEMISTRY METHOD 03/26/2024 9:54 AM [facility] Potassium 4.6 3.5 - 5.5 mmol/L LAB CHEMISTRY METHOD 03/26/2024 9:54 AM [facility] Chloride 104 96 - 110 mmol/L LAB CHEMISTRY METHOD 03/26/2024 9:54 AM [facility] CO2 24 21 - 32 mmol/L LAB CHEMISTRY METHOD 03/26/2024 9:54 AM [facility] Anion Gap 8 3 - 11 LAB CHEMISTRY METHOD 03/26/2024 9:54 AM [facility] Glucose 471(HH) 70 - 100 mg/dL LAB CHEMISTRY METHOD 03/26/2024 9:54 AM [facility] BUN 35(H) 5 - 25 mg/dL LAB CHEMISTRY METHOD 03/26/2024 9:54 AM [facility] Comment:Results verified by repeat testing Creatinine 1.31(H) 0.70 - 1.30 mg/dL LAB CHEMISTRY METHOD 03/26/2024 9:54 AM [facility] eGFR 64 >=60 mL/min/1. 73m2 LAB CHEMISTRY METHOD 03/26/2024 9:54 AM [facility] LAB Comment:Calculation based on the Chronic Kidney Disease Epidemiology Collaboration (CKD-EPI) equation refit without adjustment for race. BUN/Creatinine Ratio 26.7 LAB CHEMISTRY METHOD 03/26/2024 9:54 AM [facility] Calcium 9.4 8.5 - 10.5 mg/dL LAB CHEMISTRY METHOD 03/26/2024 9:54 AM [facility] AST (SGOT) 14 10 - 42 unit/L LAB CHEMISTRY METHOD 03/26/2024 9:54 AM [facility] ALT (SGPT) 19 10 - 60 unit/L LAB CHEMISTRY METHOD 03/26/2024 9:54 AM [facility] Alkaline Phosphatase 125(H) 42 - 121 unit/L LAB CHEMISTRY METHOD 03/26/2024 9:54 AM [facility] Total Protein 6.2 6.0 - 8.0 g/dL LAB CHEMISTRY METHOD 03/26/2024 9:54 AM [facility] Albumin 3.2 3.2 - 5.0 g/dL LAB CHEMISTRY METHOD 03/26/2024 9:54 AM [facility] Total Bilirubin 0.3 0.0 - 1.4 mg/dL LAB CHEMISTRY METHOD 03/26/2024 9:54 AM [facility] Blood Venous blood specimen / Unknown 03/26/2024 6:55 AM EST 03/26/2024 8:55 AM EST us Aleksander Welch MD LAB BLOOD ORDERABLES Final Resul t [facility] [address] [place] [address], documented in this encounter Visit Diagnoses Diagnosis Hemiplegia 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 (CMS/HCC V24, CMS/HCC V28) documented in this encounter Care Teams Data Warehouse Developer Relationship Specialty Start Date End Date Aleksander Welch MD [address] [place] [address] Dr [address] [place], [place] PCP - General Internal Medicine 07/11/24 documented as of this encounter
--- OUTSIDE RECORDS SUMMARY | 2025-02-27 10:13 | XMS_ITS | Encounter Summary ---
Author Organization [employer] [facility] Address [address] [place] [address] Care Team Providers Care Combined Rail Operator Name Role Phone Aleksander Welch MD Primary Care Provider [phone] Encounter Details Date Type Department Care Team (Late st Contact Info) Description 01/13/2025 Lab Requisition [facility] - Main Lab [address] [place] [address] Aleksander Welch MD [address] [place] [address] Dr [address] ARTURO Oseguera Hemiplegia and [...] Associated Diagnosis Comments COMPLETE BLOOD COUNT Routine 01/13/2025 6:45 AM EDT Hemiplegia 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 (CMS/HCC V24, CMS/HCC V28) COMPREHENSIVE METABOLIC PANEL Routine 01/13/2025 6:45 AM EDT Hemiplegia 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 (CMS/HCC V24, CMS/HCC V28) documented in this encounter Results * (ABNORMAL) Complete blood count (01/13/2025 6:45 AM EDT) WBC 5.1 4.8 - 10.8 K/mcL LAB HEMETOLOGY METHOD 01/13/2025 8:09 AM EDT [facility] RBC 4.10(L) 4.50 - 5.50 M/mcL LAB HEMETOLOGY METHOD 01/13/2025 8:09 AM [facility] Hemoglobin 12.6(L) 13.5 - 17.5 g/dL LAB HEMETOLOGY METHOD 01/13/2025 8:09 AM [facility] LAB Hematocrit 36.2(L) 42.0 - 54.0 % LAB HEMETOLOGY METHOD 01/13/2025 8:09 AM [facility] LAB MCV 87.9 79.0 - 98.0 FL LAB HEMETOLOGY METHOD 01/13/2025 8:09 AM [facility] LAB MCH 30.6 27.0 - 32.0 pcg LAB HEMETOLOGY METHOD 01/13/2025 8:09 AM [facility] LAB MCHC 34.8 32.0 - 37.0 g/dL LAB HEMETOLOGY METHOD 01/13/2025 8:09 AM [facility] LAB RDW 11.9 11.0 - 15.0 % LAB HEMETOLOGY METHOD 01/13/2025 8:09 AM [facility] LAB Platelets 222 130 - 400 K/mcL LAB HEMETOLOGY METHOD 01/13/2025 8:09 AM [facility] LAB MPV 10.6 7.0 - 11.0 FL LAB HEMETOLOGY METHOD 01/13/2025 8:09 AM [facility] LAB NRBC 0.0 <1.0 % LAB HEMETOLOGY METHOD 01/13/2025 8:09 AM [facility] LAB NRBC Absolute 0.00 <0.10 K/mcL LAB HEMETOLOGY METHOD 01/13/2025 8:09 AM [facility] LAB Blood Venous blood specimen / Unknown 01/13/2025 6:45 AM EDT 01/13/2025 7:35 AM EDT us Aleksander Welch MD LAB BLOOD ORDERABLES Final Resul t [facility] [address] [place] [address], * (ABNORMAL) Comprehensive metabolic panel (01/13/2025 6:45 AM EDT) Sodium 138 133 - 145 mmol/L LAB CHEMISTRY METHOD 01/13/2025 8:31 AM [facility] Potassium 4.2 3.5 - 5.5 mmol/L LAB CHEMISTRY METHOD 01/13/2025 8:31 AM [facility] Chloride 104 96 - 110 mmol/L LAB CHEMISTRY METHOD 01/13/2025 8:31 AM [facility] CO2 27 21 - 32 mmol/L LAB CHEMISTRY METHOD 01/13/2025 8:31 AM [facility] Anion Gap 7 3 - 11 LAB CHEMISTRY METHOD 01/13/2025 8:31 AM [facility] Glucose 296(H) 70 - 100 mg/dL LAB CHEMISTRY METHOD 01/13/2025 8:31 AM [facility] BUN 22 5 - 25 mg/dL LAB CHEMISTRY METHOD 01/13/2025 8:31 AM [facility] Creatinine 1.28 0.70 - 1.30 mg/dL LAB CHEMISTRY METHOD 01/13/2025 8:31 AM [facility] LAB eGFR 65 >=60 mL/min/1. 73m2 LAB CHEMISTRY METHOD 01/13/2025 8:31 AM [facility] LAB Comment:Calculation based on the Chronic Kidney Disease Epidemiology Collaboration (CKD-EPI) equation refit without adjustment for race. BUN/Creatinine Ratio 17.2 LAB CHEMISTRY METHOD 01/13/2025 8:31 AM [facility] Calcium 9.2 8.5 - 10.5 mg/dL LAB CHEMISTRY METHOD 01/13/2025 8:31 AM EDT [facility] AST (SGOT) 15 10 - 42 unit/L LAB CHEMISTRY METHOD 01/13/2025 8:31 AM T [facility] ALT (SGPT) 18 10 - 60 unit/L LAB CHEMISTRY METHOD 01/13/2025 8:31 AM T [facility] Alkaline Phosphatase 113 42 - 121 unit/L LAB CHEMISTRY METHOD 01/13/2025 8:31 AM EDT [facility] Total Protein 6.4 6.0 - 8.0 g/dL LAB CHEMISTRY METHOD 01/13/2025 8:31 AM [facility] Albumin 3.7 3.2 - 5.0 g/dL LAB CHEMISTRY METHOD 01/13/2025 8:31 AM [facility] LAB Total Bilirubin 0.3 0.0 - 1.4 mg/dL LAB CHEMISTRY METHOD 01/13/2025 8:31 AM T [facility] Blood Venous blood specimen / Unknown 01/13/2025 6:45 AM EDT 01/13/2025 7:35 AM EDT us Aleksander Welch MD LAB BLOOD ORDERABLES Final Resul t [facility] [address] [place] [address], documented in this encounter Visit Diagnoses Diagnosis Hemiplegia 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 (CMS/HCC V24, CMS/HCC V28) documented in this encounter Care Teams Combined Rail Operator Relationship Specialty Start Date End Date Aleksander Welch MD [address] [facility] [address] [place] [address] [place] PCP - General Internal Medicine 07/11/24 documented as of this encounter
--- OUTSIDE RECORDS SUMMARY | 2025-02-27 10:13 | XMS_ITS | Encounter Summary ---
Author Organization [employer] Address [address] [place] [address] Care Team Providers Care Seasonal Greenery Bundler Name Role Phone Aleksander Welch MD Primary Care Provider [phone] Encounter Details Date Type Department Care Team (Late st Contact Info) Description 02/27/2024 Lab Requisition [facility] - Main Lab 299 [facility] [place] [address] Aleksander Welch MD [address] [place] [address] [address] [place] Type 1 diabetes mellitus with diabetic nephropathy [...] differential (02/27/2024 8:40 AM EST) [facility] WBC 11.0(H) 4.8 - 10.8 K/mcL LAB HEMETOLOGY METHOD 02/27/2024 10:54 AM [facility] RBC 3.40(L) 4.50 - 5.50 M/mcL LAB HEMETOLOGY METHOD 02/27/2024 10:54 AM [facility] Hemoglobin 10.6(L) 13.5 - 17.5 g/dL LAB HEMETOLOGY METHOD 02/27/2024 10:54 AM [facility] LAB Hematocrit 32.3(L) 42.0 - 54.0 % LAB HEMETOLOGY METHOD 02/27/2024 10:54 AM [facility] LAB MCV 94.7 79.0 - 98.0 FL LAB HEMETOLOGY METHOD 02/27/2024 10:54 AM [facility] MCH 31.1 27.0 - 32.0 pcg LAB HEMETOLOGY METHOD 02/27/2024 10:54 AM [facility] LAB MCHC 32.8 32.0 - 37.0 g/dL LAB HEMETOLOGY METHOD 02/27/2024 10:54 AM [facility] RDW 13.7 11.0 - 15.0 % LAB HEMETOLOGY METHOD 02/27/2024 10:54 AM [facility] Platelets 377 130 - 400 K/mcL LAB HEMETOLOGY METHOD 02/27/2024 10:54 AM [facility] MPV 10.8 7.0 - 11.0 FL LAB HEMETOLOGY METHOD 02/27/2024 10:54 AM [facility] NRBC 0.0 <1.0 % LAB HEMETOLOGY METHOD 02/27/2024 10:54 AM [facility] NRBC Absolute 0.00 <0.10 K/mcL LAB HEMETOLOGY METHOD 02/27/2024 10:54 AM [facility] Neutrophils Relative 78.2 % LAB HEMETOLOGY METHOD 02/27/2024 10:54 AM [facility] Lymphocytes Relative 12.3 % LAB HEMETOLOGY METHOD 02/27/2024 10:54 AM [facility] Monocytes Relative 4.9 % LAB HEMETOLOGY METHOD 02/27/2024 10:54 AM [facility] Eosinophils Relative 3.1 % LAB HEMETOLOGY METHOD 02/27/2024 10:54 AM [facility] Basophils Relative 0.9 % LAB HEMETOLOGY METHOD 02/27/2024 10:54 AM [facility] Immature Granulocytes Relative 0.6 % LAB HEMETOLOGY METHOD 02/27/2024 10:54 AM [facility] Neutrophils Absolute 8.59(H) 1.50 - 7.00 K/mcL LAB HEMETOLOGY METHOD 02/27/2024 10:54 AM [facility] Lymphocytes Absolute 1.35 1.00 - 5.00 K/mcL LAB HEMETOLOGY METHOD 02/27/2024 10:54 AM [facility] Monocytes Absolute 0.54 0.20 - 1.00 K/mcL LAB HEMETOLOGY METHOD 02/27/2024 10:54 AM EST [facility] Eosinophils Absolute 0.34 0.00 - 0.50 K/[facility] LAB HEMETOLOGY METHOD 02/27/2024 10:54 AM EST [facility] LAB Basophils Absolute 0.10 0.00 - 0.20 K/[facility] LAB HEMETOLOGY METHOD 02/27/2024 10:54 AM EST [facility] LAB Immature Granulocytes Absolute 0.07(H) 0.00 - 0.03 K/[facility] LAB HEMETOLOGY METHOD 02/27/2024 10:54 AM EST [facility] LAB Blood Venous blood specimen / Unknown 02/27/2024 8:40 AM EST 02/27/2024 9:44 AM EST us Aleksander Welch MD LAB BLOOD ORDERABLES Final Resul t Performing Organization Address City/[facility]/ZIP Co de Phone Number [facility] [address] [place] [address], [place] [phone] * Thyroid stimulating hormone (02/27/2024 8:40 AM EST) TSH 0.59 0.40 - 4.00 mcIU/mL LAB CHEMISTRY METHOD 02/27/2024 10:54 AM EST [facility] LAB Blood Venous blood specimen / Unknown 02/27/2024 8:40 AM EST 02/27/2024 9:44 AM EST us Aleksander Welch MD LAB BLOOD ORDERABLES Final Resul t [facility] [address] [place] [address], [place] [phone] * Prostate specific antigen diagnostic (02/27/2024 8:40 AM EST) PSA 0.42 0.00 - 4.00 ng/mL LAB CHEMISTRY METHOD 02/27/2024 10:54 AM EST [facility] LAB Blood Venous blood specimen / Unknown 02/27/2024 8:40 AM EST 02/27/2024 9:44 AM EST Narrative [facility] - 02/27/2024 10:54 AM EST The Siemens Advia Centaur Chemiluminescent Immunoassay is used. Results obtained with different assay methods or kits cannot be used interchangeably. Results cannot be interpreted as absolute evidence of the presence or absence of malignant disease. us Aleksander Welch MD LAB BLOOD ORDERABLES Final Resul t Performing Organization Address [facility]/ZIP Co de Phone Number [facility] [address] [place] [address], [place] [phone] * (ABNORMAL) Hemoglobin A1c (02/27/2024 8:40 AM EST) Hemoglobin A1C 7.2(H) <6.5 % LAB CHEMISTRY METHOD 02/28/2024 12:23 PM EST [facility] Mean Bld Glu Estim. 160 mg/dL LAB CHEMISTRY METHOD 02/28/2024 12:23 PM EST [facility] Blood Venous blood specimen / Unknown 02/27/2024 8:40 AM EST 02/27/2024 9:44 AM EST us Aleksander Welch MD LAB BLOOD ORDERABLES Final Resul t Performing Organization Address [facility]/ZIP Co de Phone Number [facility] [address] [place] [address], [place] [phone] * (ABNORMAL) Lipid panel with reflex to direct LDL (02/27/2024 8:40 AM EST) Cholesterol 193 0 - 200 mg/dL LAB CHEMISTRY METHOD 02/27/2024 10:54 AM EST [facility] Triglycerides 81 0 - 150 mg/dL LAB CHEMISTRY METHOD 02/27/2024 10:54 AM EST [facility] HDL 70 >=40 mg/dL LAB CHEMISTRY METHOD 02/27/2024 10:54 AM [facility] LDL Calculated 107(H) 0 - 100 mg/dL LAB CHEMISTRY METHOD 02/27/2024 10:54 AM EST [facility] VLDL Cholesterol Tim 16.2 mg/dL LAB CHEMISTRY METHOD 02/27/2024 10:54 AM [facility] Non HDL Chol. (LDL+VLDL) 123 <145 mg/dL LAB CHEMISTRY METHOD 02/27/2024 10:54 AM [facility] Chol/HDL Ratio 2.8 0.0 - 4.4 LAB CHEMISTRY METHOD 02/27/2024 10:54 AM [facility] Blood Venous blood specimen / Unknown 02/27/2024 8:40 AM EST 02/27/2024 9:44 AM EST us Aleksander Welch MD LAB BLOOD ORDERABLES Final Resul t [facility] [address] [place] [address], [place] [phone] * (ABNORMAL) Comprehensive metabolic panel (02/27/2024 8:40 AM EST) Sodium 139 133 - 145 mmol/L LAB CHEMISTRY METHOD 02/27/2024 10:54 AM [facility] Potassium 4.4 3.5 - 5.5 mmol/L LAB CHEMISTRY METHOD 02/27/2024 10:54 AM [facility] Chloride 105 96 - 110 mmol/L LAB CHEMISTRY METHOD 02/27/2024 10:54 AM [facility] CO2 28 21 - 32 mmol/L LAB CHEMISTRY METHOD 02/27/2024 10:54 AM [facility] Anion Gap 6 3 - 11 LAB CHEMISTRY METHOD 02/27/2024 10:54 AM [facility] Glucose 76 70 - 100 mg/dL LAB CHEMISTRY METHOD 02/27/2024 10:54 AM [facility] BUN 15 5 - 25 mg/dL LAB CHEMISTRY METHOD 02/27/2024 10:54 AM [facility] Creatinine 0.96 0.70 - 1.30 mg/dL LAB CHEMISTRY METHOD 02/27/2024 10:54 AM [facility] eGFR 93 >=60 mL/min/1. 73m2 LAB CHEMISTRY METHOD 02/27/2024 10:54 AM [facility] Comment:Calculation based on the Chronic Kidney Disease Epidemiology Collaboration (CKD-EPI) equation refit without adjustment for race. BUN/Creatinine Ratio 15.6 LAB CHEMISTRY METHOD 02/27/2024 10:54 AM [facility] Calcium 9.8 8.5 - 10.5 mg/dL LAB CHEMISTRY METHOD 02/27/2024 10:54 AM [facility] AST (SGOT) 21 10 - 42 unit/L LAB CHEMISTRY METHOD 02/27/2024 10:54 AM [facility] ALT (SGPT) 23 10 - 60 unit/L LAB CHEMISTRY METHOD 02/27/2024 10:54 AM [facility] Alkaline Phosphatase 125(H) 42 - 121 unit/L LAB CHEMISTRY METHOD 02/27/2024 10:54 AM [facility] Total Protein 7.1 6.0 - 8.0 g/dL LAB CHEMISTRY METHOD 02/27/2024 10:54 AM [facility] Albumin 3.4 3.2 - 5.0 g/dL LAB CHEMISTRY METHOD 02/27/2024 10:54 AM [facility] Total Bilirubin 0.2 0.0 - 1.4 mg/dL LAB CHEMISTRY METHOD 02/27/2024 10:54 AM [facility] Blood Venous blood specimen / Unknown 02/27/2024 8:40 AM EST 02/27/2024 9:44 AM EST Aleksander Welch MD LAB BLOOD ORDERABLES Final Resul t [facility] [address] [place] [address], documented in this encounter Visit Diagnoses Diagnosis Type 1 diabetes mellitus with diabetic nephropathy (CMS/[facility] V24, [facility] V28) Benign prostatic hyperplasia with lower urinary tract symptoms documented in this encounter Care Teams Seasonal Greenery Bundler Relationship Specialty Start Date End Date Aleksander Welch MD [address] [place] [address] Dr [address] [place], [place] PCP - General Internal Medicine 07/11/24 documented as of this encounter
--- OUTSIDE RECORDS SUMMARY | 2025-02-27 10:13 | XMS_ITS | Encounter Summary ---
Author Organization [facility] Address [address] [place] [address] Care Team Providers Care Kier Tender Name Role Phone Marcus Hudson MD Primary Care Provider [phone] Azalea Ann PA-C Primary Care Provider [phone] Encounter Details Date Type Department Care Team (Late st Contact Info) Description 11/22/2020 Lab Requisition [facility] Pathology & Laboratory Medicine - [facility] [address], [place] [id number] Outr Resulting Lab, Provider Social History Tobacco [...] A1c 8.7(H) <5.7 % 11/22/2020 22:40 EDT [facility] Comment: New methodology in [...] Est Avg Glucose 203 mg/dL 22:40 EDT [facility] Comment:The eAG represents t he A1c result expressed as average glucose in mg/dL. Blood VENOUS BLOOD / Unknown 11/22/2020 15:45 EDT 11/22/2020 21:32 EDT us Provider Outr Resulting Lab CHEMISTRY & BLOOD GA S ORDERABLES Final Result Performing Organization Address City/State/[facility] Co de Phone Number [facility] [address] [place] [address] documented in this encounter Visit Diagnoses Not on filedocumented in this encounter Care Teams Kier Tender Relationship Specialty Start Date End Date Marcus Hudson MD [address] [place] [address] PCP - General 05/19/09 09/20/21 Azalea Ann PA-C [address] [place] [address] PCP - General 09/21/21 documented as of this encounter
--- OUTSIDE RECORDS SUMMARY | 2025-02-27 10:13 | XMS_ITS | Encounter Summary ---
Author Organization [facility] Address [address] [place] [address] Care Team Providers Care Wood Milling Machine Hand Name Role Phone Aleksander Welch MD Primary Care Provider [phone] Encounter Details Date Type Department Care Team (Late st Contact Info) Description 01/13/2025 Lab Requisition [facility] - Main Lab [address] [facility] [place] [address] Aleksander Welch MD [address] [place] [address] [address] [place] [address] Dysuria Social History Tobacco Use Types Packs/Day Years Used Date Smoking Tobacco: Never Assessed Sex and Gender Information Value Date Recorded Sex Assigned at Not on file Legal Sex Male 9:40 AM EST Gender Identity Not on file Sexual Orientation Not on file documented as of this encounter Plan of Treatment Not on file documented as of this encounter Visit Diagnoses Diagnosis Dysuria documented in this encounter Care Teams Wood Milling Machine Hand Relationship Specialty Start Date End Date Aleksander Welch MD [address] [place] [address] Dr [address] [place] [address] PCP - General Internal Medicine 07/11/24 documented as of this encounter
--- OUTSIDE RECORDS SUMMARY | 2025-02-27 10:13 | XMS_ITS | Encounter Summary ---
Author Organization [facility] Address [address] [place] [address] Care Team Providers Care Directory Carrier Name Role Phone Azalea Ann PA-C Primary Care Provider [phone] Encounter Details Date Type Department Care Team (Late st Contact Info) Description 08/07/2023 Lab Requisition [facility] Pathology & Laboratory Medicine - [facility] [address], [place] [phone] Outr Resulting Lab, Provider Social History Tobacco [...] A1c 7.5(H) <5.7 % 08/07/2023 23:29 EDT [facility] Comment: Glycemic Status References: Normal: <5.7% Pre-Diabetes: 5.7% - 6.4% Diagnostic of Diabetes: > or = 6.5% (if confirmed) Est Avg Glucose 169 mg/dL 4 23:29 EDT [facility] Comment:The eAG represents t he A1c result expressed as average glucose in mg/dL. Blood VENOUS BLOOD / Unknown 08/02/2023 6:30 EDT 08/07/2023 22:03 EDT us Provider Outr Resulting Lab CHEMISTRY & BLOOD GA S ORDERABLES Final Result Performing Organization Address City/State/[facility] Co de Phone Number [facility] [address] [place], [place] [phone] documented in this encounter Visit Diagnoses Not on filedocumented in this encounter Care Teams Directory Carrier Relationship Specialty Start Date End Date Azalea Ann PA-C [address] [place] [address] PCP - General 09/21/21 documented as of this encounter
--- OUTSIDE RECORDS SUMMARY | 2025-02-27 10:13 | XMS_ITS | Encounter Summary ---
Author Organization [facility] Address [address] [place] [address] Care Team Providers Care Software Testing Specialist Name Role Phone Azalea Ann PA-C Primary Care Provider [phone] Encounter Details Date Type Department Care Team (Late st Contact Info) Description 03/02/2022 Lab Requisition [facility] Pathology & Laboratory Medicine - [facility] [address] [place], [place] [phone] Outr Resulting Lab, Provider Social History Tobacco [...] RNA Qualitative Undetected Undetected 03/03/2022 13:33 EST [facility] Blood VENOUS BLOOD / Unknown 03/02/2022 12:15 EST 03/02/2022 21:12 EST Narrative [facility] - 03/03/2022 13:33 EST The quantification range of this assay is 15 IU/mL to 100,000,000 IU/mL. Testing was performed using the Joanna HCV test ([employer] with the joanna [id number] System. us Provider Outr Resulting Lab CHEMISTRY & BLOOD GA S ORDERABLES Final Result [facility] [address] [place] [address] documented in this encounter Visit Diagnoses Not on filedocumented in this encounter Care Teams Software Testing Specialist Relationship Specialty Start Date End Date Azalea Ann PA-C [address] [place] [address] PCP - General 09/21/21 documented as of this encounter
--- OUTSIDE RECORDS SUMMARY | 2025-02-27 10:13 | XMS_ITS | Encounter Summary ---
Author Organization [facility] Address [address] [place] [address] Care Team Providers Care Faa Certified Powerplant Mechanic Name Role Phone Azalea Ann PA-C Primary Care Provider [phone] Encounter Details Date Type Department Care Team (Late st Contact Info) Description 10/29/2023 Lab Requisition [facility] Pathology & Laboratory Medicine - [facility] [address] [place], [place] [phone] Outr Resulting Lab, Provider Social History Tobacco [...] IgG Antibody Positive(A) Negative 2023 11:[address] [facility] Comment:Specific anti-Borrel ia burgdorfei IgG antibodies are detected. Lyme IgM Antibody Negative Negative 024 11:[address] [facility] Comment:Specific anti-Borrel ia burgdorfei IgM antibodies are not detected. This does not exclude the possibility of B. burgdorferi infection. If exposure to B. burgdorferi is suspected, a second sample should be collected and tested 2-4 weeks later. Lyme Antibody Confirmation Interpretation See Comment 10/30/2023 11:[address] [facility] Comment:Indicative of B. bur gdorferi infection at some time in the past. Blood VENOUS BLOOD / Unknown 10/28/2023 14:15 EDT 10/29/2023 20:45 EDT us Provider Outr Resulting Lab IMMUNOLOGY AND SEROL OGY ORDERABLES Final Result Performing Organization Address City/[facility]/ZIP Co de Phone Number [facility] [address] [place] [address] * ANAPLASMA AND BABESIA TESTING BY PCR (10/28/2023 14:15 EDT) Anaplasma phagocytophilum Negative Negative 10/30/2023 16:[address] [facility] Babesia Species Negative Negative 16:[address] [facility] Blood VENOUS BLOOD / Unknown 10/28/2023 14:15 EDT 10/29/2023 20:45 EDT Narrative [facility] - 10/30/2023 16:21 EDT This test was developed and its performance characteristics determined by [facility]. It has not been cleared or approved [...] S ORDERABLES Final Result [facility] [address] [place], [place] [phone] * (ABNORMAL) LYME AB (10/28/2023 14:15 EDT) Lyme Ab Positive( A) Negative 10/30/2023 10:[address] [facility] Comment: Lyme confirmation added by [...] OGY ORDERABLES Final Result Performing Organization Address [facility] de Phone Number [facility] [address] [place] [address] * TSH (10/28/2023 14:15 EDT) Pathologist [facility] TSH 1.62 0.47 - 4.68 mIU/L 10/29/2023 21:[address] [facility] Blood VENOUS BLOOD / Unknown 10/28/2023 14:15 EDT 10/29/2023 20:45 EDT [address]arr[address] [facility] - 10/29/2023 21:36 EDT The results of this assay can be falsely lowered due to the consumption of Biotin. us Provider Outr Resulting Lab CHEMISTRY & BLOOD GA S ORDERABLES Final Result Performing Organization Address [facility] Co de Phone Number [facility] [address] [place], [place] [phone] documented in this encounter Visit Diagnoses Not on filedocumented in this encounter Care Teams Faa Certified Powerplant Mechanic Relationship Specialty Start Date End Date Azalea Ann PA-C [address] [place] [address] PCP - General 09/21/21 documented as of this encounter
--- OUTSIDE RECORDS SUMMARY | 2025-02-27 10:13 | XMS_ITS | Clinical Summary ---
Author Organization [facility] Address [facility] [place] [address] Care Team Providers Care Unarmed Security Guard Name Role Phone Loyd Thorne GANESH Primary Care Provider [phone] Allergies Active Allergy Reactions Criticality Noted Date [...] opioid overdose) for up to 2 doses. Galliano into one nostril (either left or right). [...] drink = 0.6 oz pur e alcohol) [facility] Utilities Answer Date Recorded In the past 12 months has th e [employer], oil, or water [employer] threatened to shut off services in your [...] place to sleep or slept in a custodial (including now)? No 08/13/2023 Housing Stability Vital [...] time in the past 12 m [facility], were you homeless or living in a custodial (including now)? No 11/26/2023 DH IPV Inpatient [...] 09/04/1986 Tetanus/Diphtheria/Pertussis Vaccines (1 - Tdap) 09/04/1986 RSV Vaccine (1 - Risk 50-74 years 1-dose series) 09/04/2017 Zoster vaccine (1 of 2) 09/04/2017 DM [...] Basic Metabolic Panel (12/28/2023 6:20 AM EDT) [facility] Glucose 127 65 - 199 mg/dL 12/28/2023 8:52 AM EDT [facility] Comment:Glucose Concentratio n >=200 mg/dL plus symptoms is consistent with Diabetes Mellitus. Blood Urea Nitrogen 55(H) 10 - 20 mg/dL 12/28/2023 8:52 AM EDT [facility] Creatinine 1.38 0.80 - 1.50 mg/dL 12/28/2023 8:52 AM EDT [facility] Sodium 138 135 - 145 mMol/L 12/28/2023 8:52 AM EDT [facility] Potassium 4.3 3.5 - 5.0 mMol/L 12/28/2023 8:52 AM EDT [facility] Chloride 103 98 - 107 mMol/L 12/28/2023 8:52 AM EDT [facility] Carbon Dioxide 26 22 - 31 mMol/L 12/28/2023 8:52 AM EDT [facility] Anion Gap 9 5 - 15 mMol/L 12/28/2023 8:52 AM EDT [facility] Calcium 9.3 8.5 - 10.5 mg/dL 12/28/2023 8:[address] [facility] Est Glomerular Filtration Rate - Male 60 mL/min/1. 73 m 12/28/2023 8:[address] [facility] Comment: This patient's estimated GFR [...] Rivero MD CHEMISTRY ORDERABLES Final Re sult [facility] [place] [address] * (ABNORMAL) Blood Gas, Arterial POC (12/06/2023 5:33 AM EDT) pH, Arterial 7.40 7.35 - 7.45 12/06/2023 6:[address] [facility] PCO2, Arterial 40 35 - 45 mmHg 12/06/2023 6:[address] [facility] PO2, Arterial 97 85 - 104 mmHg 12/06/2023 6:[address] [facility] Bicarbonate, Arterial 24.2 20.0 - 26.0 mmol/L 12/06/2023 6:[address] [facility] Base Excess, Arterial -0.5 -3.0 - 3.0 mmol/L 12/06/2023 6:[address] [facility] Hemoglobin, Arterial 9.4(L) 13.7 - 16.5 g/dL 12/06/2023 6:[address] [facility] Oxyhemoglobin, Arterial 96.3 94.0 - 97.0 % 12/06/2023 6:[address] [facility] Carboxyhemoglobin, Arterial 0.6 % 12/06/2023 6:[address] [facility] Comment: Nonsmokers: 0.5-1.5% COHB Smokers: Variable but usually less than 10% Toxic: 20-30% COHB Lethal: Greater than 60% COHB Methemoglobin, Arterial 0.3 <=1.5 % 12/06/2023 6:[address] [facility] Sodium, Arterial 136 135 - 145 mmol/L 12/06/2023 6:[address] [facility] Potassium, Arterial 3.9 3.5 - 5.0 mmol/L 12/06/2023 6:[address] [facility] Chloride, Arterial 103 98 - 107 mmol/L 12/06/2023 6:[address] [facility] Lactate, Arterial 1.8 0.5 - 2.2 mmol/L 12/06/2023 6:[address] [facility] Fraction of Inspired Oxygen 21 % 12/06/2023 6:[address] [facility] PF Ratio 462 Ratio 12/06/2023 6:[address] [facility] Comment:PF ratio calculated using the non-temperature corrected pO2 result. IONIZED CALCIUM, ARTERIAL 1.18 1.15 - 1.33 mmol/L 12/06/2023 6:53 AM EDT [facility] Glucose, Arterial 138 65 - 199 mg/dL 12/06/2023 6:53 AM EDT [facility] Comment:Glucose Concentratio n >=200 mg/dL plus symptoms is consistent with Diabetes Mellitus. Blood ARTERIAL BLOOD / Unknown 12/06/2023 5:33 AM EDT 12/06/2023 6:53 AM EDT us Fam Vanessa DO POINT OF CARE TEST ORDERABLES Fi nal Result [facility] [place] [address] * (ABNORMAL) Hemoglobin A1c (11/26/2023 5:59 AM EDT) [facility] Hemoglobin A1c 8.6(H) 4.3 - 5.6 % 11/26/2023 8:08 AM EDT [facility] Comment: Per ADA guidelines, without [...] red blood cell turnover may not be surgical sales representative of glycemic control. Reference Interval: 4.3 - 5.6% 5.7 - 6.4%: Consistent with prediabetes >=6.5%: Consistent with diagnosis of diabetes mellitus Estimated Average Glucose 200 mg/dL 11/26/2023 8:08 AM EDT [facility] Blood VENOUS BLOOD SPECIMEN / Unknown IP Care Team Draw / Unknown 11/26/2023 5:59 AM EDT 11/26/2023 6:08 AM EDT us Jack Bernal MD CHEMISTRY ORDERABLES Final R esult [facility] [place] [address] * HDL/Cholesterol Profile (06/16/2023 6:35 AM EST) Cholesterol, Total 141 mg/dL [facility] Comment: Lower Risk: <200 mg/dL Average Risk: 200-239 mg/dL Higher Risk: >kf=913 mg/dL HDL Cholesterol 36 mg/dL [facility] Comment: Males: Higher Risk: <40 mg/dL Females: Higher Risk: <50 mg/dL Cholesterol/HDL Ratio 3.9 ratio [facility] Chol/HDL Interpretation See Note [facility] Comment: Lipid management should be guided by a patient s ASCVD risk, goals and preferences. ACC/AHA Guidelines recommend high intensity statin if clinical ASCVD or LDL greater than or equal to 190 mg/dL. http://Shared Performance.com/IOP-SHN-Npyuoezog Measure LDL if Total Cholesterol minus HDL Cholesterol is greater than 220 mg/dL. Adults aged 40-75 with LDL 70-189 mg/dL should have their 10 year ASCVD risk estimated with the ACC/AHA ASCVD risk waste examiner http://tools.acc.org/UTTTO-Jjnk-Erllbltvf/ Statin should be discussed if risk greater [...] Narrative Resulting Agency Comment Spec In Lab Ines Sanchez MD CHEMISTRY ORDERABLES Final Result [facility] [place] [address] from Last 3 Months or Most Recently Relevant to Health Maintenance [place] Advance Directives Documents on File Type Date Recorded Patient Executive Creative Director Expl anation Advance Directives and Living Will 12/04/2023 12:27 PM Jo Wolfgang * Attempt Cardiopulmonary Resuscitation - Inpatient (Latest [...] Status decision made by: Patient Care Teams Unarmed Security Guard Relationship Specialty Start Date End Date Loyd Thorne, CEMETERY KEEPER [address] [place] [address] PCP - General Family Medicine 04/25/17
--- OUTSIDE RECORDS SUMMARY | 2025-02-27 10:13 | XMS_ITS | Continuity of Care Document ---
Author Organization [facility] Address [address] [place] [address] [address] [place], [place] Phone [phone] Care Team Providers Care Associate Drafter Name Role Phone Naveed Degroot PA-C Care Team Information Rec eiver Unavailable KRISTI AMOS M.D. Care Team Information Rec eiver Unavailable Naveed Degroot PA-C Primary Care Physician Un available Social History Type Date Description Comments Sex Male Sex Unknown
--- OUTSIDE RECORDS SUMMARY | 2025-02-27 10:13 | XMS_ITS | Encounter Summary ---
Author Organization [facility] Address [address] [place] [address] Care Team Providers Care Returned Goods Sorter Name Role Phone Marcus Hudson MD Primary Care Provider [phone] Azalea Ann PA-C Primary Care Provider [phone] Encounter Details Date Type Department Care Team (Late st Contact Info) Description 05/11/2020 Lab Requisition [facility] Pathology & Laboratory Medicine - [facility] [address] [place], [place] [phone] Outr Resulting Lab, Provider Social History Tobacco [...] A1c 8.3(H) <5.7 % 05/12/2020 8:27 EST [facility] Comment: Glycemic Status References: Normal: <5.7% Pre-Diabetes: 5.7% - 6.4% Diagnostic of Diabetes: > or = 6.5% (if confirmed) Goals for glycemic control in diabetics (ADA 2017): <7.0% target for non adults with diabetes. <7.5% target for children and adolescents with Type I Diabetes. More or less stringent targets may be appropriate for individual patients. Est Avg Glucose 192 mg/dL 1 8:27 EST [facility] Comment:The eAG represents t he A1c result expressed as average glucose in mg/dL. Blood VENOUS BLOOD / Unknown 05/11/2020 12:18 EST 05/11/2020 21:40 EST us Provider Outr Resulting Lab CHEMISTRY & BLOOD GA S ORDERABLES Final Result Performing Organization Address [facility] de Phone Number [facility] [address] [place] [address] documented in this encounter Visit Diagnoses Not on filedocumented in this encounter Care Teams Returned Goods Sorter Relationship Specialty Start Date End Date Marcus Hudson MD [address] [place] [address] PCP - General 05/19/09 09/20/21 Azalea Ann PA-C [address] [place] [address] PCP - General 09/21/21 documented as of this encounter
--- OUTSIDE RECORDS SUMMARY | 2025-02-27 10:13 | XMS_ITS | Encounter Summary ---
Author Organization [facility] Address [address] [place] [address] Care Team Providers Care Successfactors Consultant Name Role Phone Azalea Ann PA-C Primary Care Provider [phone] Encounter Details Date Type Department Care Team (Late st Contact Info) Description 09/29/2021 Lab Requisition [facility] Pathology & Laboratory Medicine - [facility] [address], [place] [phone] Outr Resulting Lab, Provider Social History Tobacco [...] 4th Generation Negative Negative 10/03/2021 9:51 EDT [facility] Comment:If acute HIV-1 infec tion is suspected in a high risk patient, submit plasma specimen for HIV-1 RNA quantitation test. Blood VENOUS BLOOD / Unknown 09/29/2021 17:09 EDT 09/30/2021 21:21 EDT Narrative [facility] - 10/03/2021 9:51 EDT Fourth Generation assay performed on the Siemens Unightaur XPT. us Provider Outr Resulting Lab IMMUNOLOGY AND SEROL OGY ORDERABLES Final Result [facility] [address] [place] [address] documented in this encounter Visit Diagnoses Not on filedocumented in this encounter Care Teams Successfactors Consultant Relationship Specialty Start Date End Date Azalea Ann PA-C [address] [place] [address] PCP - General 09/21/21 documented as of this encounter
--- OUTSIDE RECORDS SUMMARY | 2025-02-27 10:13 | XMS_ITS | Encounter Summary ---
Author Organization [facility] Address [address] [place] [address] Care Team Providers Care Legal Contracts Specialist Name Role Phone Marcus Hudson MD Primary Care Provider [phone] Azalea Ann PA-C Primary Care Provider [phone] Encounter Details Date Type Department Care Team (Late st Contact Info) Description 05/11/2020 Lab Requisition [facility] Pathology & Laboratory Medicine - [facility] [address] [place], [place] [address] Outr Resulting Lab, Provider Social History Tobacco [...] Qualitative Detected( A) Undetected 05/13/2020 14:[address] [facility] HCV RNA Quantitative 1,580,573 (H) Undetected IU/mL 05/13/2020 14:[address] [facility] Blood VENOUS BLOOD / Unknown 05/11/2020 12:18 EST 05/11/2020 21:[address] [facility] - 05/13/2020 14:48 EST The quantification range of this assay is 15 IU/mL to 100,000,000 IU/mL. Testing was performed on the IVON Ampliprep/IVON TaqMan HCV v2.0 ([employer] us Provider Outr Resulting Lab CHEMISTRY & BLOOD GA S ORDERABLES Final Result Performing Organization Address [facility] Co de Phone Number [facility] [address] [place] [address] * (ABNORMAL) HEPATITIS C AB W REFLEX TO HCV RNA BY PCR (05/11/2020 12:18 EST) Hep C Antibody Reactive(A ) Negative 05/12/2020 11:[address] [facility] Comment: Supplemental testing for HCV RNA is ordered to rule out active HCV infection. Blood VENOUS BLOOD / Unknown 05/11/2020 12:18 EST 05/11/2020 21:45 EST Provider Outr Resulting Lab CHEMISTRY & BLOOD GA S ORDERABLES Final Result Performing Organization Address City/[facility] Co de Phone Number [facility] [address] [place] [address] documented in this encounter Visit Diagnoses Not on filedocumented in this encounter Care Teams Legal Contracts Specialist Relationship Specialty Start Date End Date Marcus Hudson MD [address] [place] [address] PCP - General 05/19/09 09/20/21 Azalea Ann PA-C [facility] [place] [address] PCP - General 09/21/21 documented as of this encounter
== END 2025-02-27 09:31 | disposition home or self-care (01) ==
LOC: HO.HUSH 09:08
PROVIDERS: PCP Hospitalist; Visit Provider Urology
DX: N40.1 Benign prostatic hyperplasia with lower urinary tract symptoms (principal); R33.9 Retention of urine, unspecified
CPT/HCPCS: 99213

== ENCOUNTER → 2025-02-27 09:07 | Outpatient (BNVA) | payer MEDICAID, SELFPAY | PROVIDERS: PCP Hospitalist; Visit Provider Urology | DX: N40.0 Benign prostatic hyperplasia without lower urinary tract symptoms (principal); R33.9 Retention of urine, unspecified | CPT/HCPCS: 51798; 99212 ==